=== PATIENT | female | born 1975 | race Caucasian/White ===

== ENCOUNTER 2020-05-04 09:18 | Emergency (ER) | payer OTHER ==
--- OUTSIDE RECORDS SUMMARY | 2020-05-04 10:15 | XMS REPORT | Clinical Summary ---
:1975 Author Organization [facility] Address [address] [place] [address] Care Team Providers Name Role Phone Kwesi Oh Primary Care Provider Aria eDlvalle Consulting Physician Allergies Active Allergy Reactions Severity Noted Date Comments Diphenhydramine-Zinc Acetate Rash Low 03/13/2016 Fluticasone Rash Low 03/13/2016 Medications Medication Sig Dispensed Refills Start Date End Date Status levothyroxine Take 200 mcg by 0 Active (SYNTHROID, LEVOTHROID) mouth Every morning 200 MCG tablet on an empty stomach. calcium carbonate Take 600 mg by 0 Active (OS-MARTÍN) 600 mg (1,500 mouth 3 (three) mg) Tab times daily with meals. insulin regular Inject 0 Acti ve (HUMULIN R,NOVOLIN R) subcutaneously 100 unit/mL daily 90 units 2 x injectionIndications: day. 75 units, 25 units, 75 units naproxen-esomeprazole Take by mouth 2 0 Active 500-20 mg TbID (two) times daily. magnesium oxide Take 400 mg by 0 Active (MAG-OX) 400 mg tablet mouth daily. montelukast (SINGULAIR) Take 10 mg by mouth 0 Active 10 mg tablet nightly. modafinil (PROVIGIL) Take 200 mg by 0 Active 200 MG tablet mouth daily . methylphenidate Take 10 mg by mouth 0 Active (RITALIN) 10 MG tablet 2 (two) times daily. atorvastatin (LIPITOR) Take 20 mg by mouth 0 11/19/ 016 Active 20 MG tablet daily . folic acid (FOLVITE) 1 Take 1 mg by mouth 0 12/02/20 16 Active MG tablet daily . SIMPONI 50 mg/0.5 mL once every 2 weeks 0 12/12/2016 Active PnIj . fenofibrate micronized Take 200 mg by 0 11/05/2016 Active (LOFIBRA) 200 MG mouth every morning capsule before breakfast . hydroxychloroquine 0 11/26/2016 Active (PLAQUENIL) 200 mg tablet LANTUS 100 unit/mL 0 09/18/2016 Active injection methotrexate 2.5 MG 0 11/29/2016 Active tablet pantoprazole (PROTONIX) Take 40 mg by mouth 0 2016 Active 40 MG tablet daily . sulfaSALAzine Take 3,000 mg by 0 2016 Active (AZULFIDINE) 500 mg mouth daily . tablet metFORMIN Take 500 mg by 0 12/20/2016 Acti ve (GLUCOPHAGE-XR) 500 MG mouth 3 (three) 24 hr tablet times daily TAKE ONE TABLET BY MOUTH THREE TIMES A DAY. GYNAZOLE-1 2 % Crea 0 12/17/2016 Active rizatriptan (MAXALT) 10 Take 1 tablet by 0 5 Active MG tablet mouth as needed . aspirin 81 MG chewable Take 81 mg by mouth 0 Active tablet daily. azaTHIOprine (IMURAN) Take 25 mg by mouth 0 Active 50 mg tablet every other day . DULAGLUTIDE (TRULICITY Inject 0 Active SUBQ) subcutaneously once a week . omega-3s/dha/epa/fish Take by mouth 2 0 Active oil (OMEGA 3 ORAL) (two) times daily. ascorbic acid, vitamin Take 1,000 mg by 0 Active C, (VITAMIN C) 1000 MG mouth daily. tablet leflunomide (ARAVA) 10 Take 10 mg by mouth 0 Active MG tablet twice a week. meloxicam (MOBIC) 15 MG Take 15 mg by mouth 0 Active tablet daily. mirabegron (MYRBETRIQ) Take 50 mg by mouth 0 Active 50 mg Tb24 ER tablet daily. dulaglutide (TRULICITY) Inject 1.5 mg 0 02/24/2019 Active 1.5 mg/0.5 mL PnIj subcutaneously once a week . atorvastatin (LIPITOR) TAKE ONE TABLET BY 0 04/16/20 19 Active 40 MG tablet MOUTH AT BEDTIME insulin regular hum INJECT 90 UNITS 0 02/24/2019 Active U-500 conc (HUMULIN R twice daily U-500, CONC, KWIKPEN) 500 unit/mL (3 mL) InPn lisinopril Take 30 mg by 0 02/24/2019 Acti ve (PRINIVIL,ZESTRIL) 30 mouth. MG tablet levocetirizine (XYZAL) Take 5 mg by mouth. 0 Active 5 MG tablet omega-3 acid ethyl Take 2 g by mouth. 0 02/25/2019 Active esters (LOVAZA) 1 gram capsule OTEZLA 30 mg Tab 0 11/23/2019 Ac tive nateglinide (STARLIX) Take 120 mg by 0 09/01/2019 Active 120 MG tablet mouth. Active Problems Problem Noted Date Psoriatic arthritis 06/24/2019 Abnormal liver enzymes 03/14/2016 Last Assessment & Plan: Her transaminases have been abnormal sin ce at least 2010. The elevation is likely secondary to MCCURDY +/- methotrexate. Lab work evaluating for viral, autoimmune, genetic and metabolic causes of live dis ease was ordered by Dr. Reyes and was unremarkable. Liver biopsy is consisten t with MCCURDY and stage 2 fibrosis. Obesity 03/14/2016 Last Assessment & Plan: Body mass index is 35.32 kg/(m^2). Obesi ty is a contributing factor for MCCURDY. We discussed the importance of weight loss with a low carbohydrate, high protein diet. Immunity status testing 03/14/2016 Last Assessment & Plan: Will check immunity to hepatitis A and h epatitis B, vaccine recommendations will follow. Type 2 diabetes mellitus not at goal 03/14/2016 Hyperlipidemia 03/14/2016 Last Assessment & Plan: Her recent blood work shows triglyceride s > 200 despite taking cholesterol lowering agents. We recommend aggressive managem ent of her hyperlipidemie to reduce her risk for progression of liver disease. Metabolic syndrome 03/14/2016 Last Assessment & Plan: She has metabolic syndrome by criteria w hich is known risk factor for MCCURDY. She was advised to control her diet, and lose we ight as part of her diabetes and hyperlipidemia management. This may als o prove to be helpful with her hyperlipidemia. Counseling done and edu cational material was provided. MCCURDY (nonalcoholic steatohepatitis) 03/14/2016 Last Assessment & Plan: She has several risk factors for MCCURDY in cluding obesity, diabetes, hyperlipidemia and obesity. Liver biopsy was consistent wi th MCCURDY (marked steatosis, ballooning degeneneration, and lobular inflammation ). We discussed the importance of excellent control of her cholesterol and diabetes and weight loss. She has significant fibrosis (stage 2/4) at the age of 40 an d we discussed the urgency of decreasing her risk factors for MCCURDY to help prevent pr ogression of fibrosis. 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 Liver biopsy shows significant steatosis. Both methotrexate hepatotoxi city and fatty liver disease can present as steatosis on liver biopsy. She has keisha ral risk factors for non-alcoholic fatty liver disease but we cannot rule out hugo e component of methotrexate toxicity. Cellulitis 03/14/2016 Last Assessment & Plan: She has a 5 cm area of erythema, rubor, and mild edema on the abdominal wall of her LLQ - site of a previous insulin pump. She has an appointment schedued wit her surgeon today for follow-up. Resolved Problems Problem Noted Date Resolved Date Psoriasis 03/14/2016 06/24/2019 Last Assessment & Plan: She has a history of psoriasis and psori atic arthritis that was fairly well controlled previously with methotrexate. I do not recommend restarting methotrexate. Her liver biopsy shows significant fibr osis (likely a combination of fatty liver disease +/- methotrexate). 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 If all other agents fail, I would prefer she minimize her contributing factors for NA SH (lose weight, better control of DM) before we try methotrexate again. Encounters Date Type Specialty Care Team Description 12/09/2019 Abstract Hepatology Vianney White MA 12/02/2019 Office Visit Hepatology Juany Garay NASH ( nonalcoholic steatohepatitis) (Primary Dx); Type 2 diabetes mellitus not at goal (HC C); Cinthya Matt Psoriat ic arthritis ; PA Class 1 obesity with body mass index (BMI) of 33.0 to 33.9 in adult, unspecified obesity type, unspecified whether serious comorbidity present; Methotrexate to xicity, accidental or unintentional, subsequent encounter; Metabolic syndr ome; Immunity status testing; Hyperlipidemia, unspecified hyperlipidemia type; Abnormal liver enzymes 06/21/2019 Office Visit HepatJuany Edge NASH ( nonalcoholic steatohepatitis) (Primary Dx); Immunity status testing; Mmeo Arroyo, Type 2 diabetes mellitus not at goal (HCC); 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; Psoriatic arthr itis ; Class 1 obesity with body mass index (BMI) of 33.0 to 33.9 in adult, unspecified obesity type, unspecified whether serious comorbidity present; Methotrexate to xicity, accidental or unintentional, subsequent encounter; Metabolic syndr ome; Hyperlipidemia, unspecified hyperlipidemia type; Abnormal liver enzymes 06/10/2019 Abstract Hepatology Evonne Casey after 05/04/2019 Family History Medical History Relation Name Comments Heart disease Father Diabetes Sister Relation Name Status Comments Father Alive Sister Alive Social History Tobacco Use Types Packs/Day Years Used Date Never Smoker Smokeless Tobacco: Never Used Alcohol Use Drinks/Week oz/Week Comments No Sex Assigned at Date Recorded Not on file Job Start Date Occupation Industry Not on file Not on file Not on file Travel History Travel Start Travel End No recent travel history available. Last Filed Vital Signs Vital Sign Reading Time Taken Blood Pressure 130/83 12/02/2019 1:20 PM INTERNATIONAL ACCOUNT MANAGER Pulse 108 12/02/2019 1:20 PM INTERNATIONAL ACCOUNT MANAGER Temperature 37.1 C (98.8 F) 12/02/2019 1:20 PM INTERNATIONAL ACCOUNT MANAGER Respiratory Rate 18 12/02/2019 1:20 PM INTERNATIONAL ACCOUNT MANAGER Oxygen Saturation 95% 12/02/2019 1:20 PM INTERNATIONAL ACCOUNT MANAGER Inhaled Oxygen Concentration - - Weight 94.5 kg (208 lb 6.4 oz) 12/02/2019 1:20 PM INTERNATIONAL ACCOUNT MANAGER Height 170.2 cm (5' 7") 12/02/2019 1:20 PM INTERNATIONAL ACCOUNT MANAGER Body Mass Index 32.64 12/02/2019 1:20 PM INTERNATIONAL ACCOUNT MANAGER Plan of Treatment Date Type Specialty Care Team Description 06/01/2020 Office Visit Hepatology Juany Garay MD [address] [facility] [address] [place], [place] [address] [phone] Health Maintenance Due Date Last Done Comments HEMOGLOBIN A1C 03/14/2016 PNEUMOCOCCAL VACCINE 2-64 YEARS AT RISK (2 of 3 - 12/22/2018 10/27/2018 PPSV23) INFLUENZA VACCINE (#1) 2019 10/24/2015 Procedures Procedure Name Priority Date/Time Associated Comments Diagnosis CBC W/PLT COUNT & Routine 12/02/2019 2:06 MCCURDY (nonalcoholic Results for this AUTO DIFFERENTIAL PM INTERNATIONAL ACCOUNT MANAGER steatohepatitis) proced ure are in the results section. CBC W/PLT COUNT & Routine 12/02/2019 2:06 MCCURDY (nonalcoholic Results for this AUTO DIFFERENTIAL PM INTERNATIONAL ACCOUNT MANAGER steatohepatitis) proced ure are in the results section. HEPATIC FUNCTION Routine 12/02/2019 2:06 MCCURDY (nonalcoholic R esults for this PANEL PM INTERNATIONAL ACCOUNT MANAGER steatohepatitis) procedure a re in the results section. BASIC METABOLIC PANEL Routine 12/02/2019 2:06 MCCURDY (nonalcoho lic Results for this (7) PM INTERNATIONAL ACCOUNT MANAGER steatohepatitis) procedure a re in the results section. CBC W/PLT COUNT & Routine 06/21/2019 11:19 MCCURDY (nonalcoholic Results for this AUTO DIFFERENTIAL AM CDT steatohepatitis) proced ure are in the results section. HEPATITIS B SURFACE Routine 06/21/2019 11:19 Immunity status R esults for this ANTIBODY AM CDT testing procedure are i n the results section. HEPATITIS A ANTIBODY, Routine 06/21/2019 11:19 Immunity status Results for this IGG AM CDT testing procedure are i n the results section. HEPATIC FUNCTION Routine 06/21/2019 11:19 MCCURDY (nonalcoholic R esults for this PANEL AM CDT steatohepatitis) procedure a re in the results section. BASIC METABOLIC PANEL Routine 06/21/2019 11:19 MCCURDY (nonalcoho lic Results for this (7) AM CDT steatohepatitis) procedure a re in the results section. CBC W/PLT COUNT & Routine 06/21/2019 11:19 MCCURDY (nonalcoholic Results for this AUTO DIFFERENTIAL AM CDT steatohepatitis) proced ure are in the results section. after 05/04/2019 Results CBC with platelet count + automated diff (12/02/2019 2:06 PM INTERNATIONAL ACCOUNT MANAGER)Only the most recent of2 resultswithin the time period is included. WBC 9.2 3.5 - 10.5 K/L [facility] RBC 5.26 (H) 3.93 - 5.22 M/L [facility] Hemoglobin 12.6 11.2 - 15.7 GM/DL [facility] Hematocrit 40.6 34.1 - 44.9 % [facility] MCV 77.2 (L) 79.4 - 94.[address] [facility] ALTH [facility] MCH 24.0 (L) 25.6 - 32.2 pg [facility] ALTH [facility] MCHC 31.0 (L) 32.2 - 35.5 GM/DL [facility] RDW 14.7 (H) 11.7 - 14.4 % [facility] HE ALTH [facility] Platelets 415 150 - 450 K/CU MM [facility] MPV 9.6 9.4 - 12.3 fL [facility] ALTH [facility] nRBC 0 0 - 0 /100 WBC [facility] ALTH [facility] % Neutros 59 % [facility] % Lymphs 27 % [facility] % Monos 8 % [facility] AL[facility] % Eos 5 % [facility] ALTH [facility] % Baso 2 % [facility] ALTH [facility] # Neutros 5.44 1.56 - 6.13 K/L [facility] # Lymphs 2.45 1.18 - 3.74 K/L [facility] # Monos 0.70 (H) 0.24 - 0.36 K/L [facility] # Eos 0.45 (H) 0.04 - 0.36 K/L [facility] # Baso 0.15 (H) 0.01 - 0.08 K/L [facility] Immature Granulocytes-Relative 1 0 - 1 % C HI [facility] Specimen Blood Performing Organization Address City/State/Zipcode Phone Number [facility] [address] [place] [address] CENTER Hepatic function panel (12/02/2019 2:06 PM INTERNATIONAL ACCOUNT MANAGER)Only the most recent of2 results within the time period is included. Protein, Total 7.0 6.0 - 8.3 gm/dL [facility] Albumin 4.4 3.5 - 5.0 g/dL [facility] HE [facility] Total Bilirubin 0.3 0.2 - 1.2 mg/dL [facility] Bilirubin, Direct 0.2 0.1 - 0.5 mg/dL [facility] Alkaline Phosphatase 65 40 - 150 U/L [facility] AST 55 (H) 5 - 34 U/L [facility] ALT 41 6 - 55 U/L [facility] Specimen Blood Performing Organization Address City/State/Zipcode Phone Number [address] [address] CENTER Basic Metabolic Panel (12/02/2019 2:06 PM INTERNATIONAL ACCOUNT MANAGER)Only the most recent of2 results within the time period is included. Sodium 138 136 - 145 meq/L [facility] Potassium 4.0 3.5 - 5.1 meq/L [facility] Chloride 103 98 - 107 meq/L [facility] CO2 23 22 - 29 meq/L [facility] BUN 6 (L) 7 - 21 mg/dL [facility] Creatinine 0.74 0.57 - 1.25 mg/dL [facility] Glucose 271 (H) 70 - 105 mg/dL [facility] Calcium 9.2 8.4 - 10.2 mg/dL [facility] EGFR 85Comment: ESTIMATED GFR IS mL/min/1.73 sq m [facility] NOT ACCURATE CREATININE MD DICAL CENTER CLEARANCE IN PREDICTING GLOMERULAR FILTRATION RATE. ESTIMATED GFR IS NOT APPLICABLE FOR DIALYSIS PATIENTS. Specimen Blood Performing Organization Address City/State/Zipcode Phone Number [facility] [address] [place] [address] [place] Hepatitis A Antibody, IgG ([facility] Only) (06/21/2019 11:19 AM CDT) Hep A IgG Reactive (A) Nonreactive [facility] Specimen Blood Performing Organization Address City/State/Zipcode Phone Number [facility] [address] [place] [address] [place] Hepatitis B surface antibody (06/21/2019 11:19 AM CDT) Hep B S Ab 22.0 (H) <8.0 mIU/mL [facility] Specimen Blood Performing Organization Address City/[facility]/Zipcode Phone Number [address] [address] [place] after 05/04/2019 Insurance Payer Benefit Plan / Group Subscriber ID Type Phone A ddress [employer] - [employer] CARE [employer] HMO POS QPOS xxxxxxxxxx HMO/POS Advance Directives For more information, please contact:[address] [phone] Code Status Date Activated Date Inactivated Comments Full Code 03/13/2016 10:43 AM 03/13/2016 7:12 PM This code status was determined by: Patient
--- OUTSIDE RECORDS SUMMARY | 2020-05-04 10:16 | XMS REPORT | Continuity of Care Document ---
:1975 Author Organization [facility] t Address [address] [place] [address] Care Team Providers Name Role Phone Lorne SANCHEZ Attending Clinician CARMEN FERNANDES Attending Clinician Unavailable Problems This patient has no known problems. Allergies, Adverse Reactions, Alerts This patient has no known allergies or adverse reactions. Medications This patient has no known medications. Procedures This patient has no known procedures. Encounters Start End Encounter Admission Attending Care Care Encounter Source Date/Time Date/Time Type Type Clinicians Facility Department ID 2020-04-13 2020-04-13 Refill Pradhan, [facility] [id number] 00:00:00 00:00:00 Adeel Whiteland [id number] [place] [id number] Professio [phone] [address] 2020-04-12 2020-04-12 Refill Pradhan, [facility] [id number] 00:00:00 00:00:00 Adeel Whiteland [id number] [place] [id number] [facility]io [phone] [address] 2020-04-10 2020-04-10 Refill Pradhan, [facility] [id number] 00:00:00 00:00:00 Adeel Whiteland [id number] [place] [id number] [facility]io [phone] [address] 2020-01-11 2020-01-11 Office Pradhan, [facility] [id number] 25 15:44:37 17:02:16 Visit Adeel Jim [id number] [place] [id number] María [phone] [facility] [address] Results Test Description Test Time Test Comments Results Result Comments Source HEPATIC FUNCTION PANEL 2019-12-02 16:47:00 Test Item Value Reference Range Interpretation Comme nts TOTAL PROTEIN (BEAKER) (test code = 770) 7.0 gm/dL 6.0-8.3 ALBUMIN (BEAKER) (test code = 1145) 4.4 g/dL 3.5-5.0 BILIRUBIN TOTAL (BEAKER) (test code = 377) 0.3 mg/dL 0.2-1.2 BILIRUBIN DIRECT (BEAKER) (test code = 706) 0.2 mg/dL 0.1-0.5 ALKALINE PHOSPHATASE (BEAKER) (test code = 346) 65 U/L 40-150 AST (SGOT) (BEAKER) (test code = 353) 55 U/L 5-34 H ALT (SGPT) (BEAKER) (test code = 347) 41 U/L 6-55 BASIC METABOLIC [id number] 16:47:00 Test Item Value Reference Range Interpretation Comments SODIUM (BEAKER) 138 meq/L 136-145 (test code = 381) POTASSIUM (BEAKER) 4.0 meq/L 3.5-5.1 (test code = 379) CHLORIDE (BEAKER) 103 meq/L 98-107 (test code = 382) CO2 (BEAKER) (test 23 meq/L 22-29 code = 355) BLOOD UREA NITROGEN 6 mg/dL 7-21 L (BEAKER) (test code = 354) CREATININE (BEAKER) 0.74 mg/dL 0.57-1.25 (test code = 358) GLUCOSE RANDOM 271 mg/dL 70-105 H (BEAKER) (test code = 652) CALCIUM (BEAKER) 9.2 mg/dL 8.4-10.2 (test code = 697) EGFR (BEAKER) (test 85 mL/min/1.73 ESTIMA JOSIAH GFR IS code = 1092) sq m NOT ACCURATE CREATININE CLEARANCE IN PREDICTING GLOMERULAR FILTRATION RATE . ESTIMATED GFR I S NOT APPLICABLE FOR DIALYSIS PATIEN TS. CBC W/PLT COUNT & AUTO [id number] 16:36:00 Test Item Value Reference Range Interpretation Comments WHITE BLOOD CELL COUNT (BEAKER) 9.2 K/ L 3.5-10.5 (test code = 775) RED BLOOD CELL COUNT (BEAKER) 5.26 M/ L 3.93-5.22 H (test code = 761) HEMOGLOBIN (BEAKER) (test code = 12.6 GM/DL 11.2-15.7 410) HEMATOCRIT (BEAKER) (test code = 40.6 % 34.1-44.9 411) MEAN CORPUSCULAR VOLUME (BEAKER) 77.2 fL 79.4-94.8 L (test code = 753) MEAN CORPUSCULAR HEMOGLOBIN 24.0 pg 25.6-32.2 L (BEAKER) (test code = 751) MEAN CORPUSCULAR HEMOGLOBIN CONC 31.0 GM/DL 32.2-35.5 L (BEAKER) (test code = 752) RED CELL DISTRIBUTION WIDTH 14.7 % 11.7-14.4 H (BEAKER) (test code = 412) PLATELET COUNT (BEAKER) (test 415 K/CU MM 150-450 code = 756) MEAN PLATELET VOLUME (BEAKER) 9.6 fL 9.4-12.3 (test code = 754) NUCLEATED RED BLOOD CELLS 0 /100 WBC 0-0 (BEAKER) (test code = 413) NEUTROPHILS RELATIVE PERCENT 59 % (BEAKER) (test code = 429) LYMPHOCYTES RELATIVE PERCENT 27 % (BEAKER) (test code = 430) MONOCYTES RELATIVE PERCENT 8 % (BEAKER) (test code = 431) EOSINOPHILS RELATIVE PERCENT 5 % (BEAKER) (test code = 432) BASOPHILS RELATIVE PERCENT 2 % (BEAKER) (test code = 437) NEUTROPHILS ABSOLUTE COUNT 5.44 K/ L 1.56-6.13 (BEAKER) (test code = 670) LYMPHOCYTES ABSOLUTE COUNT 2.45 K/ L 1.18-3.74 (BEAKER) (test code = 414) MONOCYTES ABSOLUTE COUNT (BEAKER) 0.70 K/ L 0.24-0.36 H (test code = 415) EOSINOPHILS ABSOLUTE COUNT 0.45 K/ L 0.04-0.36 H (BEAKER) (test code = 416) BASOPHILS ABSOLUTE COUNT (BEAKER) 0.15 K/ L 0.01-0.08 H (test code = 417) IMMATURE GRANULOCYTES-RELATIVE 1 % 0-1 PERCENT (BEAKER) (test code = 2801) HEPATITIS A ANTIBODY, [id number] 13:32:00 Test Item Value Reference Range Interpretation Comments HEPATITIS A IGG ANTIBODY (BEAKER) Reactive Nonreactive A (test code = 2797) HEPATITIS B SURFACE [id number] 13:30:00 Test Item Value Reference Range Interpretation Comments HEPATITIS B SURFACE ANTIBODY 22.0 mIU/mL <8.0 H (BEAKER) (test code = 647) HEPATIC FUNCTION [id number] 13:14:00 Test Item Value Reference Range Interpretation Comments TOTAL PROTEIN (BEAKER) (test code = 6.7 gm/dL 6.0-8.3 770) ALBUMIN (BEAKER) (test code = 1145) 4.2 g/dL 3.5-5.0 BILIRUBIN TOTAL (BEAKER) (test code 0.3 mg/dL 0.2-1.2 = 377) BILIRUBIN DIRECT (BEAKER) (test 0.1 mg/dL 0.1-0.5 code = 706) ALKALINE PHOSPHATASE (BEAKER) (test 56 U/L 40-150 code = 346) AST (SGOT) (BEAKER) (test code = 58 U/L 5-34 H 353) ALT (SGPT) (BEAKER) (test code = 49 U/L 6-55 347) BASIC METABOLIC [id number] 13:14:00 Test Item Value Reference Range Interpretation Comments SODIUM (BEAKER) 140 meq/L 136-145 (test code = 381) POTASSIUM (BEAKER) 3.9 meq/L 3.5-5.1 (test code = 379) CHLORIDE (BEAKER) 107 meq/L 98-107 (test code = 382) CO2 (BEAKER) (test 22 meq/L 22-29 code = 355) BLOOD UREA NITROGEN 8 mg/dL 7-21 (BEAKER) (test code = 354) CREATININE (BEAKER) 0.75 mg/dL 0.57-1.25 (test code = 358) GLUCOSE RANDOM 184 mg/dL 70-105 H (BEAKER) (test code = 652) CALCIUM (BEAKER) 9.0 mg/dL 8.4-10.2 (test code = 697) EGFR (BEAKER) (test 84 mL/min/1.73 ESTIMA JOSIAH GFR IS code = 1092) sq m NOT ACCURATE CREATININE CLEARANCE IN PREDICTING GLOMERULAR FILTRATION RATE . ESTIMATED GFR I S NOT APPLICABLE FOR DIALYSIS PATIEN TS. CBC W/PLT COUNT & AUTO [id number] 12:58:00 Test Item Value Reference Range Interpretation Comments WHITE BLOOD CELL COUNT (BEAKER) 5.3 K/ L 3.5-10.5 (test code = 775) RED BLOOD CELL COUNT (BEAKER) 4.84 M/ L 3.93-5.22 (test code = 761) HEMOGLOBIN (BEAKER) (test code = 12.6 GM/DL 11.2-15.7 410) HEMATOCRIT (BEAKER) (test code = 40.5 % 34.1-44.9 411) MEAN CORPUSCULAR VOLUME (BEAKER) 83.7 fL 79.4-94.8 (test code = 753) MEAN CORPUSCULAR HEMOGLOBIN 26.0 pg 25.6-32.2 (BEAKER) (test code = 751) MEAN CORPUSCULAR HEMOGLOBIN CONC 31.1 GM/DL 32.2-35.5 L (BEAKER) (test code = 752) RED CELL DISTRIBUTION WIDTH 14.1 % 11.7-14.4 (BEAKER) (test code = 412) PLATELET COUNT (BEAKER) (test 372 K/CU MM 150-450 code = 756) MEAN PLATELET VOLUME (BEAKER) 9.4 fL 9.4-12.3 (test code = 754) NUCLEATED RED BLOOD CELLS 0 /100 WBC 0-0 (BEAKER) (test code = 413) NEUTROPHILS RELATIVE PERCENT 51 % (BEAKER) (test code = 429) LYMPHOCYTES RELATIVE PERCENT 32 % (BEAKER) (test code = 430) MONOCYTES RELATIVE PERCENT 10 % (BEAKER) (test code = 431) EOSINOPHILS RELATIVE PERCENT 4 % (BEAKER) (test code = 432) BASOPHILS RELATIVE PERCENT 2 % (BEAKER) (test code = 437) NEUTROPHILS ABSOLUTE COUNT 2.71 K/ L 1.56-6.13 (BEAKER) (test code = 670) LYMPHOCYTES ABSOLUTE COUNT 1.72 K/ L 1.18-3.74 (BEAKER) (test code = 414) MONOCYTES ABSOLUTE COUNT (BEAKER) 0.55 K/ L 0.24-0.36 H (test code = 415) EOSINOPHILS ABSOLUTE COUNT 0.23 K/ L 0.04-0.36 (BEAKER) (test code = 416) BASOPHILS ABSOLUTE COUNT (BEAKER) 0.09 K/ L 0.01-0.08 H (test code = 417) IMMATURE GRANULOCYTES-RELATIVE 0 % 0-1 PERCENT (BEAKER) (test code = 2801) HEPATIC FUNCTION [id number] 14:47:00 Test Item Value Reference Range Interpretation Comments TOTAL PROTEIN (BEAKER) (test code = 7.1 gm/dL 6.0-8.3 770) ALBUMIN (BEAKER) (test code = 1145) 4.4 g/dL 3.5-5.0 BILIRUBIN TOTAL (BEAKER) (test code 0.3 mg/dL 0.2-1.2 = 377) BILIRUBIN DIRECT (BEAKER) (test 0.2 mg/dL 0.1-0.5 code = 706) ALKALINE PHOSPHATASE (BEAKER) (test 76 U/L 40-150 code = 346) AST (SGOT) (BEAKER) (test code = 32 U/L 5-34 353) ALT (SGPT) (BEAKER) (test code = 27 U/L 6-55 347) BASIC METABOLIC [id number] 14:47:00 Test Item Value Reference Range Interpretation Comments SODIUM (BEAKER) 138 meq/L 136-145 (test code = 381) POTASSIUM (BEAKER) 3.8 meq/L 3.5-5.1 (test code = 379) CHLORIDE (BEAKER) 104 meq/L 98-107 (test code = 382) CO2 (BEAKER) (test 24 meq/L 22-29 code = 355) BLOOD UREA NITROGEN 13 mg/dL 7-21 (BEAKER) (test code = 354) CREATININE (BEAKER) 0.78 mg/dL 0.57-1.25 (test code = 358) GLUCOSE RANDOM 187 mg/dL 70-105 H (BEAKER) (test code = 652) CALCIUM (BEAKER) 8.9 mg/dL 8.4-10.2 (test code = 697) EGFR (BEAKER) (test 80 mL/min/1.73 ESTIMA JOSIAH GFR IS code = 1092) sq m NOT ACCURATE CREATININE CLEARANCE IN PREDICTING GLOMERULAR FILTRATION RATE . ESTIMATED GFR I S NOT APPLICABLE FOR DIALYSIS PATIEN TS. C-REACTIVE [id number] 14:47:00 Test Item Value Reference Range Interpretation Comments C-REACTIVE PROTEIN (BEAKER) (test 0.25 mg/dL 0.00-0.50 code = 676) CBC W/PLT COUNT & AUTO [id number] 14:23:00 Test Item Value Reference Range Interpretation Comments WHITE BLOOD CELL COUNT (BEAKER) 8.3 K/ L 3.5-10.5 (test code = 775) RED BLOOD CELL COUNT (BEAKER) 5.17 M/ L 3.93-5.22 (test code = 761) HEMOGLOBIN (BEAKER) (test code = 13.5 GM/DL 11.2-15.7 410) HEMATOCRIT (BEAKER) (test code = 42.9 % 34.1-44.9 411) MEAN CORPUSCULAR VOLUME (BEAKER) 83.0 fL 79.4-94.8 (test code = 753) MEAN CORPUSCULAR HEMOGLOBIN 26.1 pg 25.6-32.2 (BEAKER) (test code = 751) MEAN CORPUSCULAR HEMOGLOBIN CONC 31.5 GM/DL 32.2-35.5 L (BEAKER) (test code = 752) RED CELL DISTRIBUTION WIDTH 13.6 % 11.7-14.4 (BEAKER) (test code = 412) PLATELET COUNT (BEAKER) (test 405 K/CU MM 150-450 code = 756) MEAN PLATELET VOLUME (BEAKER) 9.2 fL 9.4-12.3 L (test code = 754) NUCLEATED RED BLOOD CELLS 0 /100 WBC 0-0 (BEAKER) (test code = 413) NEUTROPHILS RELATIVE PERCENT 50 % (BEAKER) (test code = 429) LYMPHOCYTES RELATIVE PERCENT 32 % (BEAKER) (test code = 430) MONOCYTES RELATIVE PERCENT 9 % (BEAKER) (test code = 431) EOSINOPHILS RELATIVE PERCENT 6 % (BEAKER) (test code = 432) BASOPHILS RELATIVE PERCENT 2 % (BEAKER) (test code = 437) NEUTROPHILS ABSOLUTE COUNT 4.18 K/ L 1.56-6.13 (BEAKER) (test code = 670) LYMPHOCYTES ABSOLUTE COUNT 2.66 K/ L 1.18-3.74 (BEAKER) (test code = 414) MONOCYTES ABSOLUTE COUNT (BEAKER) 0.78 K/ L 0.24-0.36 H (test code = 415) EOSINOPHILS ABSOLUTE COUNT 0.46 K/ L 0.04-0.36 H (BEAKER) (test code = 416) BASOPHILS ABSOLUTE COUNT (BEAKER) 0.17 K/ L 0.01-0.08 H (test code = 417) IMMATURE GRANULOCYTES-RELATIVE 1 % 0-1 PERCENT (BEAKER) (test code = 2801) HEPATIC FUNCTION [id number] 11:43:00 Test Item Value Reference Range Interpretation Comments TOTAL PROTEIN (BEAKER) (test code = 7.1 gm/dL 6.0-8.3 770) ALBUMIN (BEAKER) (test code = 1145) 4.4 g/dL 3.5-5.0 BILIRUBIN TOTAL (BEAKER) (test code 0.3 mg/dL 0.2-1.2 = 377) BILIRUBIN DIRECT (BEAKER) (test 0.1 mg/dL 0.1-0.5 code = 706) ALKALINE PHOSPHATASE (BEAKER) (test 81 U/L 40-150 code = 346) AST (SGOT) (BEAKER) (test code = 38 U/L 5-34 H 353) ALT (SGPT) (BEAKER) (test code = 34 U/L 6-55 347) BASIC METABOLIC [id number] 11:43:00 Test Item Value Reference Range Interpretation Comments SODIUM (BEAKER) 136 meq/L 136-145 (test code = 381) POTASSIUM (BEAKER) 4.2 meq/L 3.5-5.1 (test code = 379) CHLORIDE (BEAKER) 101 meq/L 98-107 (test code = 382) CO2 (BEAKER) (test 23 meq/L 22-29 code = 355) BLOOD UREA NITROGEN 10 mg/dL 7-21 (BEAKER) (test code = 354) CREATININE (BEAKER) 0.84 mg/dL 0.57-1.25 (test code = 358) GLUCOSE RANDOM 277 mg/dL 70-105 H (BEAKER) (test code = 652) CALCIUM (BEAKER) 8.4 mg/dL 8.4-10.2 (test code = 697) EGFR (BEAKER) (test 74 mL/min/1.73 ESTIMA JOSIAH GFR IS code = 1092) sq m NOT ACCURATE CREATININE CLEARANCE IN PREDICTING GLOMERULAR FILTRATION RATE . ESTIMATED GFR I S NOT APPLICABLE FOR DIALYSIS PATIEN TS. CBC W/PLT COUNT & AUTO [id number] 10:40:00 Test Item Value Reference Range Interpretation Comments WHITE BLOOD CELL COUNT (BEAKER) 7.7 K/ L 3.5-10.5 (test code = 775) RED BLOOD CELL COUNT (BEAKER) 5.35 M/ L 3.93-5.22 H (test code = 761) HEMOGLOBIN (BEAKER) (test code = 12.9 GM/DL 11.2-15.7 410) HEMATOCRIT (BEAKER) (test code = 42.2 % 34.1-44.9 411) MEAN CORPUSCULAR VOLUME (BEAKER) 78.9 fL 79.4-94.8 L (test code = 753) MEAN CORPUSCULAR HEMOGLOBIN 24.1 pg 25.6-32.2 L (BEAKER) (test code = 751) MEAN CORPUSCULAR HEMOGLOBIN CONC 30.6 GM/DL 32.2-35.5 L (BEAKER) (test code = 752) RED CELL DISTRIBUTION WIDTH 15.1 % 11.7-14.4 H (BEAKER) (test code = 412) PLATELET COUNT (BEAKER) (test 384 K/CU MM 150-450 code = 756) MEAN PLATELET VOLUME (BEAKER) 9.4 fL 9.4-12.3 (test code = 754) NUCLEATED RED BLOOD CELLS 0 /100 WBC 0-0 (BEAKER) (test code = 413) NEUTROPHILS RELATIVE PERCENT 51 % (BEAKER) (test code = 429) LYMPHOCYTES RELATIVE PERCENT 32 % (BEAKER) (test code = 430) MONOCYTES RELATIVE PERCENT 9 % (BEAKER) (test code = 431) EOSINOPHILS RELATIVE PERCENT 6 % (BEAKER) (test code = 432) BASOPHILS RELATIVE PERCENT 1 % (BEAKER) (test code = 437) NEUTROPHILS ABSOLUTE COUNT 3.91 K/ L 1.56-6.13 (BEAKER) (test code = 670) LYMPHOCYTES ABSOLUTE COUNT 2.42 K/ L 1.18-3.74 (BEAKER) (test code = 414) MONOCYTES ABSOLUTE COUNT (BEAKER) 0.70 K/ L 0.24-0.36 H (test code = 415) EOSINOPHILS ABSOLUTE COUNT 0.48 K/ L 0.04-0.36 H (BEAKER) (test code = 416) BASOPHILS ABSOLUTE COUNT (BEAKER) 0.10 K/ L 0.01-0.08 H (test code = 417) IMMATURE GRANULOCYTES-RELATIVE 1 % 0-1 PERCENT (BEAKER) (test code = 2801) HEPATIC FUNCTION [id number] 16:54:00 Test Item Value Reference Range Interpretation Comments TOTAL PROTEIN (BEAKER) (test code = 6.9 gm/dL 6.0-8.3 770) ALBUMIN (BEAKER) (test code = 1145) 4.1 g/dL 3.5-5.0 BILIRUBIN TOTAL (BEAKER) (test code 0.3 mg/dL 0.2-1.2 = 377) BILIRUBIN DIRECT (BEAKER) (test 0.1 mg/dL 0.1-0.5 code = 706) ALKALINE PHOSPHATASE (BEAKER) (test 94 U/L 40-150 code = 346) AST (SGOT) (BEAKER) (test code = 29 U/L 5-34 353) ALT (SGPT) (BEAKER) (test code = 36 U/L 6-55 347) BASIC METABOLIC [id number] 16:54:00 Test Item Value Reference Range Interpretation Comments SODIUM (BEAKER) 135 meq/L 136-145 L (test code = 381) POTASSIUM (BEAKER) 4.2 meq/L 3.5-5.1 (test code = 379) CHLORIDE (BEAKER) 99 meq/L 98-107 (test code = 382) CO2 (BEAKER) (test 24 meq/L 22-29 code = 355) BLOOD UREA NITROGEN 9 mg/dL 7-21 (BEAKER) (test code = 354) CREATININE (BEAKER) 0.68 mg/dL 0.57-1.25 (test code = 358) GLUCOSE RANDOM 244 mg/dL 70-105 H (BEAKER) (test code = 652) CALCIUM (BEAKER) 8.3 mg/dL 8.4-10.2 L (test code = 697) EGFR (BEAKER) (test 94 mL/min/1.73 ESTIMA JOSIAH GFR IS code = 1092) sq m NOT ACCURATE CREATININE CLEARANCE IN PREDICTING GLOMERULAR FILTRATION RATE . ESTIMATED GFR I S NOT APPLICABLE FOR DIALYSIS PATIEN TS. CBC W/PLT COUNT & AUTO [id number] 16:27:00 Test Item Value Reference Range Interpretation Comments WHITE BLOOD CELL COUNT (BEAKER) 8.9 K/ L 3.5-10.5 (test code = 775) RED BLOOD CELL COUNT (BEAKER) 5.39 M/ L 3.93-5.22 H (test code = 761) HEMOGLOBIN (BEAKER) (test code = 12.5 GM/DL 11.2-15.7 410) HEMATOCRIT (BEAKER) (test code = 41.4 % 34.1-44.9 411) MEAN CORPUSCULAR VOLUME (BEAKER) 76.8 fL 79.4-94.8 L (test code = 753) MEAN CORPUSCULAR HEMOGLOBIN 23.2 pg 25.6-32.2 L (BEAKER) (test code = 751) MEAN CORPUSCULAR HEMOGLOBIN CONC 30.2 GM/DL 32.2-35.5 L (BEAKER) (test code = 752) RED CELL DISTRIBUTION WIDTH 15.8 % 11.7-14.4 H (BEAKER) (test code = 412) PLATELET COUNT (BEAKER) (test 407 K/CU MM 150-450 code = 756) MEAN PLATELET VOLUME (BEAKER) 9.0 fL 9.4-12.3 L (test code = 754) NUCLEATED RED BLOOD CELLS 0 /100 WBC 0-0 (BEAKER) (test code = 413) NEUTROPHILS RELATIVE PERCENT 62 % (BEAKER) (test code = 429) LYMPHOCYTES RELATIVE PERCENT 27 % (BEAKER) (test code = 430) MONOCYTES RELATIVE PERCENT 7 % (BEAKER) (test code = 431) EOSINOPHILS RELATIVE PERCENT 2 % (BEAKER) (test code = 432) BASOPHILS RELATIVE PERCENT 1 % (BEAKER) (test code = 437) NEUTROPHILS ABSOLUTE COUNT 5.56 K/ L 1.56-6.13 (BEAKER) (test code = 670) LYMPHOCYTES ABSOLUTE COUNT 2.44 K/ L 1.18-3.74 (BEAKER) (test code = 414) MONOCYTES ABSOLUTE COUNT (BEAKER) 0.64 K/ L 0.24-0.36 H (test code = 415) EOSINOPHILS ABSOLUTE COUNT 0.18 K/ L 0.04-0.36 (BEAKER) (test code = 416) BASOPHILS ABSOLUTE COUNT (BEAKER) 0.09 K/ L 0.01-0.08 H (test code = 417) IMMATURE GRANULOCYTES-RELATIVE 0 % 0-1 PERCENT (BEAKER) (test code = 2801) ALPHA FETOPROTEIN (AFP), TUMOR [id number] 16:19:00 Test Item Value Reference Range Interpretation Comments ALPHA-FETOPROTEIN (BEAKER) (test 4.6 ng/mL <10.0 code = 1094) Effective 10/18/2014: Reference Range ChangeNew: <10.0 Previous: 0.0-8.0 BASIC METABOLIC [id number] 15:56:00 Test Item Value Reference Range Interpretation Comments SODIUM (BEAKER) 137 meq/L 136-145 (test code = 381) POTASSIUM (BEAKER) 4.0 meq/L 3.5-5.1 (test code = 379) CHLORIDE (BEAKER) 101 meq/L 98-107 (test code = 382) CO2 (BEAKER) (test 25 meq/L 22-29 code = 355) BLOOD UREA NITROGEN 9 mg/dL 7-21 (BEAKER) (test code = 354) CREATININE (BEAKER) 0.76 mg/dL 0.57-1.25 (test code = 358) GLUCOSE RANDOM 165 mg/dL 70-105 H (BEAKER) (test code = 652) CALCIUM (BEAKER) 9.1 mg/dL 8.4-10.2 (test code = 697) EGFR (BEAKER) (test 83 mL/min/1.73 ESTIMA JOSIAH GFR IS code = 1092) sq m NOT ACCURATE CREATININE CLEARANCE IN PREDICTING GLOMERULAR FILTRATION RATE . ESTIMATED GFR I S NOT APPLICABLE FOR DIALYSIS PATIEN TS. LIPID [id number] 15:56:00 Test Item Value Reference Range Interpretation Comments TRIGLYCERIDES (BEAKER) (test code = 411 mg/dL 540) CHOLESTEROL (BEAKER) (test code = 201 mg/dL 631) HDL CHOLESTEROL (BEAKER) (test code 44 mg/dL = 976) Calculated LDL not valid if triglyceride >400 mg/dLTriglyceride Reference Range: Low Risk <150 Borderline 150-199 High Risk 200-499 Very High Risk >=500Cholesterol Reference Range: Low Risk <200 Borderline 200-239 High Risk >240HDL Cholesterol Reference Range: Low Risk >=60 High Risk <40LDL Cholesterol ReferenceRange: Optimal <100 Near Optimal 100-129 Borderline 130-159 High 160-189 Very High >=190HEPATIC FUNCTION [id number] 15:56:00 Test Item Value Reference Range Interpretation Comments TOTAL PROTEIN (BEAKER) (test code = 7.4 gm/dL 6.0-8.3 770) ALBUMIN (BEAKER) (test code = 1145) 4.4 g/dL 3.5-5.0 BILIRUBIN TOTAL (BEAKER) (test code 0.3 mg/dL 0.2-1.2 = 377) BILIRUBIN DIRECT (BEAKER) (test 0.1 mg/dL 0.1-0.5 code = 706) ALKALINE PHOSPHATASE (BEAKER) (test 78 U/L 40-150 code = 346) AST (SGOT) (BEAKER) (test code = 46 U/L 5-34 H 353) ALT (SGPT) (BEAKER) (test code = 37 U/L 6-55 347) GAMMA GLUTAMYL TRANSFERASE ([id number] 15:56:00 Test Item Value Reference Range Interpretation Comments GAMMA GLUTAMYL TRANSFERASE (BEAKER) 77 U/L 9-64 H (test code = 364) CBC W/PLT COUNT & AUTO [id number] 15:55:00 Test Item Value Reference Range Interpretation Comments WHITE BLOOD CELL COUNT (BEAKER) 7.9 K/ L 4.0-10.0 (test code = 775) RED BLOOD CELL COUNT (BEAKER) 5.18 M/ L 4.00-5.00 H (test code = 761) HEMOGLOBIN (BEAKER) (test code = 13.1 GM/DL 12.0-15.0 410) HEMATOCRIT (BEAKER) (test code = 40.6 % 36.0-45.0 411) MEAN CORPUSCULAR VOLUME (BEAKER) 78.4 fL 82.0-99.0 L (test code = 753) MEAN CORPUSCULAR HEMOGLOBIN 25.2 pg 27.0-33.0 L (BEAKER) (test code = 751) MEAN CORPUSCULAR HEMOGLOBIN CONC 32.1 GM/DL 32.0-36.0 (BEAKER) (test code = 752) RED CELL DISTRIBUTION WIDTH 15.4 % 10.3-14.2 H (BEAKER) (test code = 412) PLATELET COUNT (BEAKER) (test 438 K/CU MM 150-430 H code = 756) MEAN PLATELET VOLUME (BEAKER) 6.7 fL 6.5-10.5 (test code = 754) NUCLEATED RED BLOOD CELLS 0 /100 WBC 0-0 (BEAKER) (test code = 413) NEUTROPHILS RELATIVE PERCENT 53 % (BEAKER) (test code = 429) LYMPHOCYTES RELATIVE PERCENT 32 % (BEAKER) (test code = 430) MONOCYTES RELATIVE PERCENT 10 % (BEAKER) (test code = 431) EOSINOPHILS RELATIVE PERCENT 5 % (BEAKER) (test code = 432) BASOPHILS RELATIVE PERCENT 1 % (BEAKER) (test code = 437) NEUTROPHILS ABSOLUTE COUNT 4.13 K/ L 1.80-8.00 (BEAKER) (test code = 670) LYMPHOCYTES ABSOLUTE COUNT 2.49 K/ L 1.48-4.50 (BEAKER) (test code = 414) MONOCYTES ABSOLUTE COUNT (BEAKER) 0.78 K/ L 0.00-1.30 (test code = 415) EOSINOPHILS ABSOLUTE COUNT 0.38 K/ L 0.00-0.50 (BEAKER) (test code = 416) BASOPHILS ABSOLUTE COUNT (BEAKER) 0.10 K/ L 0.00-0.20 (test code = 417) 0.00PROTHROMBIN [id number] 15:42:00 Test Item Value Reference Range Interpretation Comments PROTIME (BEAKER) (test code = 13.1 seconds 11.7-14.7 759) INR (BEAKER) (test code = 370) 1.0 <=5.9 RECOMMENDED COUMADIN/WARFARIN INR THERAPY RANGESSTANDARD DOSE: 2.0 - 3.0 Includes: PROPHYLAXIS forvenous thrombosis, systemic embolization; TREATMENT for venous thrombosis and/or pulmonary embolus.HIGH RISK: Target INR is 2.5-3.5 for patients with mechanical heart valves.
--- OUTSIDE RECORDS SUMMARY | 2020-05-04 10:17 | XMS REPORT | Summary of Care ---
:[address] [facility] Address [address] [place] [id number] Care Team Providers Name Role Phone Francis Orosco Primary Care Provider Reason for Visit Reason Comments Follow-up Diabetes Mellitus II Encounter Details Date Type Department Care Team Description 01/11/2020 Office Visit [facility] Adeel Pradhan MD Uncontrolled type 2 diabetes mellitus wi th complication (Primary Dx); Endocrinology- [address] [facility] hypertension, benign; [facility] Dyslipidemia; Professional Office [place], [place] Posts urgical hypothyroidism; Building [facility] Thyroid cancer [address] [place] [address] [address] [place] [address] Allergies Active Allergy Reactions Severity Noted Date Comments Diphenhydramine Hcl Rash Low 09/04/2010 Fluticasone Rash Low 09/04/2010 documented as of this encounter (statuses as of 02/09/2020) Medications Medication Sig Dispensed Refills Start End Date Status Date Golimumab (SIMPONI) 50 0 Active mg/0.5 mL injection 7 calcium carbonate 600 Take 3 0 Active mg calcium (1,500 mg) tablets by tablet mouth. magnesium oxide 400 mg Take 1 0 Active capsule capsule by 5 mouth. Cholecalciferol, Take 1 0 Act montrell Vitamin D3, 1,000 unit capsule by 5 capsule mouth. levocetirizine 5 mg Take 5 mg by 0 Active tablet mouth. venlafaxine 75 mg Take 1 0 Ac tive tablet tablet by 5 mouth. aspirin 81 mg EC tablet Take 1 0 Active tablet by 7 mouth. butalbital-acetaminophe Take 1 0 Active n 50-300 mg Tab tablet by 5 mouth. rizatriptan 10 mg Take 1 0 Ac tive tablet tablet by 5 mouth. Naproxen-Esomeprazole Take by 0 Active Mag 500-20 mg per mouth. tablet modafinil 200 mg tablet Take 200 mg 0 Active by mouth. montelukast 10 mg Take 1 0 Ac tive tablet tablet by 0 mouth. Folic Acid 20 mg Cap Take 20 mg 0 Active by mouth 2 (two) times daily. pantoprazole 20 mg EC Take 40 mg 0 Active tablet by mouth daily. olopatadine (PAZEO) 0.7 Place in 0 Active % Drop each eye. BD ULTRAFINE III MINI USE ONE - 200 Each 0 Active PEN 31 gauge x 3/16" TWICE A DAY 8 NdleIndications: Type 2 diabetes mellitus without complication, with long-term current use of insulin fenofibrate micronized Take 1 90 capsule 1 Active 200 mg capsule by 9 capsuleIndications: mouth daily Mixed hyperlipidemia with breakfast. flash glucose scanning 1 Each 1 Each 0 Active reader (FREESTYLE GURJIT daily. 9 14 DAY READER) MiscIndications: Diabetes mellitus type 2, uncontrolled, without complications sulfaSALAzine 500 mg Take 500 mg 0 Active tablet by mouth 6 (six) times daily. azaTHIOprine 50 mg Take 25 mg 0 Active tablet by mouth every other day. hydroxychloroquine Take 200 mg 0 Active sulfate by mouth 2 (HYDROXYCHLOROQUINE (two) times ORAL) daily. methylphenidate HCl 10 Take 10 mg 0 Active mg tablet by mouth every morning and at 1200 (noon). levothyroxine 200 mcg Take 1 90 tablet 1 Active tabletIndications: tablet by 9 Postsurgical mouth every hypothyroidism, Thyroid morning. cancer lisinopril 30 mg Take 1 90 tablet 1 Act montrell tabletIndications: tablet by 9 Essential hypertension, mouth daily. benign insulin regular hum inject 54 mL 1 Active U-500 conc (HUMULIN R 80-100 Units 9 U-500, CONC, KWIKPEN) under the 500 unit/mL (3 mL) skin 3 InPnIndications: (three) Uncontrolled type 2 times daily diabetes mellitus with before complication meals. Upto 300 units per day metformin ER 500 mg 24 Take 1 270 tablet 3 Active hr tabletIndications: tablet by 9 Uncontrolled type 2 mouth 3 diabetes mellitus with (three) complication times daily with meals. atorvastatin 40 mg Take 1 90 tablet 2 A ctive tabletIndications: tablet by 9 Dyslipidemia mouth at bedtime. dulaglutide (TRULICITY) inject 1.5 12 Syringe 2 Active 1.5 mg/0.5 mL mg under the 9 PnIjIndications: skin weekly. Uncontrolled type 2 diabetes mellitus with complication LOVAZA, [id number]-[id number] Take 2 360 capsule 1 Active ethyl esters, 1 gram capsules by 9 capsuleIndications: mouth 2 Dyslipidemia (two) times daily with meals. nateglinide 120 mg Take 1 90 tablet 5 A ctive tabletIndications: tablet by 9 Uncontrolled type 2 mouth 3 diabetes mellitus with (three) complication times daily before meals. FREESTYLE GURJIT 14 DAY 1 Each every 2 Kit 5 Active SENSOR KitIndications: 14 0 Diabetes mellitus type (fourteen) 2, uncontrolled, days. without complications OTEZLA 30 mg tablet 0 Active 0 leflunomide 10 mg Take 10 mg 0 01/11/20 D iscontinued tablet by mouth 2 20 (two) times per week. documented as of this encounter (statuses as of 02/09/2020) Active Problems Problem Noted Date Postsurgical hypothyroidism 10/24/2015 Trigger thumb of both thumbs 08/10/2014 Elevated liver enzymes 05/18/2014 Metabolic syndrome X 05/18/2014 Diabetes mellitus type 2, uncontrolled, without compli cations 11/16/2013 Overview: ICD10 Diagnosis Term Art History Instructor Utility Thyroid cancer 11/16/2013 HLD (hyperlipidemia) 11/16/2013 Essential hypertension, benign 11/16/2013 Vitamin D deficiency 11/16/2013 Overview: ICD10 Diagnosis Term Art History Instructor Utility Plantar fasciitis 11/08/2011 Abnormal liver function test 07/12/2011 Therapeutic drug monitoring 07/12/2011 Skin rash 06/07/2011 Late effect of adverse effect of drug, medical or biol ogical substance 10/17/2010 Cervical radiculopathy 09/04/2010 Psoriatic arthropathy 09/04/2010 documented as of this encounter (statuses as of 02/09/2020) Resolved Problems Problem Noted Date Resolved Date Hypothyroidism 11/16/2013 10/24/2015 Overview: ICD10 Diagnosis Term Art History Instructor Utility documented as of this encounter (statuses as of 02/09/2020) Immunizations Name Administration Dates Next Due Influenza Virus Vaccine Quad IM 3+ YRS 10/24/2015 Pneumococcal 13 Conjugate, PCV13 (Prevnar 10/27/2018 13) Twinrix (hep a/hep b) 04/01/2019, 10/27/2018, 09/23/2018 documented as of this encounter Social History Tobacco Use Types Packs/Day Years Used Date Never Smoker Smokeless Tobacco: Never Used Alcohol Use Drinks/Week oz/Week Comments Yes occasional Sex Assigned at Date Recorded Not on file Job Start Date Occupation Industry Not on file Not on file Not on file Travel History Travel Start Travel End No recent travel history available. documented as of this encounter Last Filed Vital Signs Vital Sign Reading Time Taken Comments Blood Pressure 112/78 01/11/2020 4:32 PM SPECIAL EDUCATION SECRETARY Pulse 90 01/11/2020 4:32 PM SPECIAL EDUCATION SECRETARY Temperature - - Respiratory Rate 16 01/11/2020 4:32 PM SPECIAL EDUCATION SECRETARY Oxygen Saturation - - Inhaled Oxygen Concentration - - Weight 93.9 kg (207 lb) 01/11/2020 4:32 PM SPECIAL EDUCATION SECRETARY Height 170.2 cm (5' 7") 01/11/2020 4:32 PM SPECIAL EDUCATION SECRETARY Body Mass Index 32.42 01/11/2020 4:32 PM SPECIAL EDUCATION SECRETARY documented in this encounter Patient Instructions Patient InstructionsAdeel Pradhan MD - 01/11/2020 4:00 PM CSTContinue metformin Trulicity and nateglinide Change U 500 insulin to 100 units with meal three time a day, if you skip your lunch , take 40-50 units at noon time IAL EDUCATION SECRETARY documented in this encounter Progress Notes Adeel Pradhan MD - 01/11/2020 4:00 PM CST chief complaint: Type 2 diabetes mellitus, Hypothyroidism, dyslipidemia- follow up HPI Patient is a 43 y/o female here for follow up. H/o Type 2 diabetes mellitus, hypertension , hypothyroidism, nephropathy: with microalbuminuria and obesity. Type 2 diabetes mellitus has been poor controlled with A1C >9 most time MUKUND was in 08/2019 with A1C at 9.2 patient was instructed to add Starlix. She is currently taking Diabetes regimen: U-500 in pen 90units TIDAC, Metformin ER 500 mg 3 tab daily, Trulicity 1.5 mg weekly and nateglinide 120mg TIDAC Patient was started on freestyle gurjit in 01/2019 . Patient has brought in the blood sugars to be reviewed today. CGM(-01/11/19) BG scan 4/day sensor AVG 234 % time CGM data captured 78% Glucose stat very high >240 46% high 140-240 45% in Target range 100-140 7% low 70-99 2% very low <70 0% Interpretation Hyperglycemia thru the day The patient is not having problems with hypoglycemia. But few 70-80 in PM Diet: Reports compliance Exercise:limited due to RA Dyslipidemia: Takes Fenofibrate 200 mg and Lipitor 40 mg and Lovaza 2 cap bid Hypothyroidism: Takes LT4 200 mcg daily Thyroid cancer: being managed at [facility] Received records from [facility] PTC T2N*M* S/p right lobectomy followed by completion thyroidectomy. PTC: Pathology 03/2012 Right 2.2 cm, no extrathyroidal extension but positive lymphovascular invasion. Resected margin werepositive RAIA- Not treated 10/2017_ ( [facility] labs) TG and TG AB negative FT4 elevated TSH normal DIABETIC HEALTH MAINTENANCE Last Ophthalmology visit was 07/16/19, no retinopathy per patient. Patient on BECKY/ARB therapy - Yes Patient on ASA therapy - Yes. Patient on Statin/Fibrate therapy - Yes. Patient instructed about daily feet exams, last sensation exam was 09/01/2019 Patient has received Nutrition/Diet/Diabetes Education on 03/2016. Patient's Medications START taking these medications No medications on file CONTINUE taking these medications which have NOT CHANGED ASPIRIN 81 MG EC TABLET Take 1 tablet by mouth. ATORVASTATIN 40 MG TABLET Take 1 tablet by mouth at bedtime. AZATHIOPRINE 50 MG TABLET Take 25 mg by mouth every other day. BD ULTRAFINE III MINI PEN 31 GAUGE X 3/16" NDLE USE ONE - TWICE A DAY BUTALBITAL-ACETAMINOPHEN 50-300 MG TAB Take 1 tablet by mouth. CALCIUM CARBONATE 600 MG CALCIUM (1,500 MG) TABLET Take 3 tablets by mouth. CHOLECALCIFEROL, VITAMIN D3, 1,000 UNIT CAPSULE Take 1 capsule by mouth. DULAGLUTIDE (TRULICITY) 1.5 MG/0.5 ML PNIJ inject 1.5 mg under the skin weekly. FENOFIBRATE MICRONIZED 200 MG CAPSULE Take 1 capsule by mouth daily with breakfast. FLASH GLUCOSE SCANNING READER (FREESTYLE GURJIT 14 DAY READER) MISC 1 Each daily. FOLIC ACID 20 MG CAP Take 20 mg by mouth 2 (two) times daily. FREESTYLE GURJIT 14 DAY SENSOR KIT 1 Each every 14 (fourteen) days. GOLIMUMAB (SIMPONI) 50 MG/0.5 ML INJECTION HYDROXYCHLOROQUINE SULFATE (HYDROXYCHLOROQUINE ORAL) Take 200 mg by mouth 2 (two) times daily. INSULIN REGULAR HUM U-500 CONC (HUMULIN R U-500, CONC, KWIKPEN) 500 UNIT/ML (3 ML) INPN inject 80-100 Units under the skin 3 (three) times daily before meals. Upto 300 units per day LEVOCETIRIZINE 5 MG TABLET Take 5 mg by mouth. LEVOTHYROXINE 200 MCG TABLET Take 1 tablet by mouth every morning. LISINOPRIL 30 MG TABLET Take 1 tablet by mouth daily. LOVAZA, [id number] ETHYL ESTERS, 1 GRAM CAPSULE Take 2 capsules by mouth 2 (two) times daily with meals. MAGNESIUM OXIDE 400 MG CAPSULE Take 1 capsule by mouth. METFORMIN ER 500 MG 24 HR TABLET Take 1 tablet by mouth 3 (three) times daily with meals. METHYLPHENIDATE HCL 10 MG TABLET Take 10 mg by mouth every morning and at 1200 (noon). MODAFINIL 200 MG TABLET Take 200 mg by mouth. MONTELUKAST 10 MG TABLET Take 1 tablet by mouth. NAPROXEN-ESOMEPRAZOLE MAG 500-20 MG PER TABLET Take by mouth. NATEGLINIDE 120 MG TABLET Take 1 tablet by mouth 3 (three) times daily before meals. OLOPATADINE (PAZEO) 0.7 % DROP Place in each eye. OTEZLA 30 MG TABLET PANTOPRAZOLE 20 MG EC TABLET Take 40 mg by mouth daily. RIZATRIPTAN 10 MG TABLET Take 1 tablet by mouth. SULFASALAZINE 500 MG TABLET Take 500 mg by mouth 6 (six) times daily. VENLAFAXINE 75 MG TABLET Take 1 tablet by mouth. START taking Modified Medications as Prescribed No medications on file STOP taking these medications LEFLUNOMIDE 10 MG TABLET Take 10 mg by mouth 2 (two) times per week. HISTORY Past Medical History: Diagnosis Date Abnormal liver function test fatty liver-methotrexate discontinued Chronic headaches Diabetes mellitus, type 2 2000 Gastroparesis borderline normal gastric emptying study for liquid-poor gastric emptying for solids HLD (hyperlipidemia) HTN (hypertension) Psoriasis increased SI joint uptake on bonescan PUD (peptic ulcer disease) Thyroid cancer papillary s/p thyroidectomy Past Surgical History: Procedure Laterality Date HYSTERECTOMY 12/2012 partial THYROIDECTOMY 03/25/2012 TONSILLECTOMY Family History Problem Relation Age of Onset Arthritis Father Social History Socioeconomic History Marital status: Spouse name: Not on file Number of children: Not on file Years of education: Not on file Highest education level: Not on file Occupational History Not on file Social Needs Financial resource strain: Not on file Food insecurity: Worry: Not on file Inability: Not on file Transportation needs: Medical: Not on file Non-medical: Not on file Tobacco Use Smoking status: Never Smoker Smokeless tobacco: Never Used Substance and Sexual Activity Alcohol use: Yes Comment: occasional Drug use: Not on file Sexual activity: Not on file Lifestyle Physical activity: Days per week: Not on file Minutes per session: Not on file Stress: Not on file Relationships Social connections: Talks on phone: Not on file Gets together: Not on file Attends adventist service: Not on file Active member of club or organization: Not on file Attends meetings of clubs or organizations: Not on file Relationship status: Not on file Intimate partner violence: Fear of current or ex partner: Not on file Emotionally abused: Not on file Physically abused: Not on file Forced sexual activity: Not on file Other Topics Concern Not on file Social History Narrative accounts REVIEW OF SYSTEMS Constitutional: denies weight change, denies fatigue and hair loss Eyes: denies blurry vision, denies diplopia and denies pain. Neck: denies pain, denies swollen glands Cardiovascular: denies chest pain , denies irregular pulse and denies palpitations. Respiratory: denies dyspnea on exertion and denies shortness of breath. Gastrointestinal: denies abdominal pain, denies constipation and denies diarrhea. Genitourinary: denies burning and denies dysuria. Musculoskeletal: denies back pain, denies muscle pain and denies weakness. Skin: + joint and back pain, sees rheumatology Neuro: denies numbness , denies tingling and denies tremor. Psych: negative. Endocrine: denies goiter, denies hair loss, denies intolerance to cold, denies intolerance to heat, denies polydipsia, denies polyphagia and denies polyuria. PHYSICAL EXAM No results found for: POCGLU CREATININE (MG/DL) Date Value 05/11/2013 0.60 Creatinine, Serum-LC (mg/dL) Date Value 11/10/2015 0.73 CREATININE-Q (mg/dL) Date Value 12/25/2016 0.80 Cholesterol, Total-LC (mg/dL) Date Value 11/10/2015 165 CHOLESTEROL, TOTAL-Q (mg/dL) Date Value 09/18/2019 108 HDL Cholesterol-LC (mg/dL) Date Value 11/10/2015 34 (L) HDL CHOLESTEROL-Q (mg/dL) Date Value 09/18/2019 40 (L) LDL Cholesterol Calc-LC (mg/dL) Date Value 11/10/2015 78 [id number]-O (mg/dL (calc)) Date Value 09/18/2019 44 Triglycerides-LC (mg/dL) Date Value 11/10/2015 264 (H) TRIGLYCERIDES-Q (mg/dL) Date Value 09/18/2019 163 (H) No results found for: ALBUCREAT, UALBCREAT POCT HBA1C (%) Date Value 01/11/2020 8.7 09/01/2019 9.2 (A) BP 112/78 (BP Location: Left arm, Patient Position: Sitting, BP CUFF SIZE: Adult Large) | Pulse 90| Resp 16 | Ht 5' 7" (1.702 m) | Wt 207 lb (93.9 kg) | BMI 32.42 kg/m General: alert, oriented times three, no apparent distress, appearing age appropriate. Skin: skin color and turgor are normal Head: normocephalic, no masses, lesions, tenderness or abnormalities. Eyes: anicteric sclera, pupils are equally round and reactive to light. Neck: +acanthosis nigricans Thyroid: normal size and consistency to palaption Lungs: good diaphragmatic excursion, lungs clear to auscultation bilaterally. Heart: regular rate and rhythm, no murmurs, gallops or rubs. Abdomen: abdomen soft, non-tender, normal active bowel sounds, + obese. Neuro: unremarkable without focal findings. Extremities/Musculoskeletal: no cyanosis, no edema . Component Latest Ref Rng & Units 09/18/2019 09/18/2019 9:34 AM 9:34 AM T-4, FREE-Q 0.8 - 1.8 ng/dL 1.5 TSH, 3RD GENERATION-Q mIU/L 1.37 ASSESSMENT/PLAN 1. Uncontrolled type 2 diabetes mellitus with complication -A1C (target=6-7%): 8.9 (02/16)--->9.2(08/19)--.8.7(01/20) hx of poor control -glucose range: CGM(-01/11/19) BG scan 4/day sensor AVG 234 % time CGM data captured 78% Glucose stat very high >240 46% high 140-240 45% in Target range 100-140 7% low 70-99 2% very low <70 0% I spent 30 minutes to download and review CGM with patient -complication: nephropathy -microalbumin -medication limitation: metformin cause GI symptoms -diet:reports compliance -exercise: limited by joint pain Discussed to start starlix, she agree Plan -reinterated to scan CGM >7 times per day -urged compliance with diet/exercise - POCT HEMOGLOBIN A1C TEST Patient Instructions Continue metformin Trulicity and nateglinide Change U 500 insulin to 100 units with meal three time a day, if you skip your lunch , take 40-50 units at noon time 2. Essential hypertension, benign Comment: at goal - lisinopril 30 mg tablet; Take 1 tablet by mouth daily. 3. Postsurgical hypothyroidism Last TFTs was at supratherapeutic level. LT4 was reduced from 225 to 200mcg daily in 01/2019 TFts normal in 08/2019 Plan - levothyroxine 200 mcg tablet; Take 1 tablet by mouth every morning. 4. Dyslipidemia TG still elevated Plan - atorvastatin 40 mg tablet; Take 1 tablet by mouth at bedtime. Dispense: 90 tablet; Refill: - LOVAZA, [id number] ethyl esters, 1 gram capsule; Take 2 capsules by mouth 2 (two) times daily with meals. Continue fenofibrate 5. Thyroid cancer Followed by [facility] - levothyroxine 200 mcg tablet; Take 1 tablet by mouth every morning. documented in this encounter Plan of Treatment Date Type Specialty Care Team Description 05/16/2020 Office Visit Endocrinology Diabetes & Jonathan Pradhan MD Metabolism [address] [place], [place] [id number] Health Maintenance Due Date Last Done Comments DTaP,Tdap,and Td Vaccines 1985 (1 - Tdap) PAP SMEAR 1995 Breast Cancer Screening 2014 (MAMMOGRAM) PNEUMOCOCCAL 0-64 YEARS 12/22/2018 10/27/2018 COMBINED SERIES (2 of 3 - PPSV23) HgA1C 07/11/2020 01/11/2020, 09/01/2019, 02/24/2019, Additional history exists EYE EXAM 08/11/2020 08/11/2019 INFLUENZA VACCINE (#1) 2020 10/24/2015 Postponed from 08/01/2019 ([place] Guidelines) LDL-C 09/18/2020 09/18/2019, 02/24/2019, 04/16/2017, Additional history exists URINE MICROALBUMIN 09/18/2020 09/18/2019, 12/25/2016, 11/10/2015, Additional history exists CREATININE (SERUM) 12/20/2020 12/20/2019, 12/25/2016, 11/10/2015, Additional history exists FOOT EXAM 01/11/2021 01/11/2020, 01/11/2020, 09/01/2019, Additional history exists documented as of this encounter Procedures Procedure Name Priority Date/Time Associated Diagnosis Comme nts POCT HEMOGLOBIN A1C Routine 01/11/2020 Uncontrolled type 2 R esults for this TEST diabetes mellitus with proce dure are in the complication results section . documented in this encounter Results POCT HEMOGLOBIN A1C TEST (01/11/2020) Pathologist Sig nature POCT HBA1C 8.7 4 - 6 % Specimen Blood - CAPILLARY documented in this encounter Visit Diagnoses Diagnosis Uncontrolled type 2 diabetes mellitus wi th complication - Primary Type II or unspecified type diabetes jose litus with unspecified complication, uncontrolled Essential hypertension, benign Dyslipidemia Other and unspecified hyperlipidemia Postsurgical hypothyroidism Thyroid cancer Malignant neoplasm of thyroid gland documented in this encounter [phone] [id number] (Work) documented as of this encounter Advance Directives Type Date Recorded 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
--- OUTSIDE RECORDS SUMMARY | 2020-05-04 10:17 | XMS REPORT | Summary of Care ---
:1975 Author Organization [facility] Address [address] [place] [address] Care Team Providers Name Role Phone Francis Orosco Primary Care Provider Reason for Visit Reason Comments Follow-up Diabetes Mellitus II Encounter Details Date Type Department Care Team Description 01/11/2020 Office Visit [facility] Adeel Pradhan MD Uncontrolled type 2 diabetes mellitus wi th complication (Primary Dx); Endocrinology- [address] [facility] hypertension, benign; [facility] Dyslipidemia; Professional Office [place], [place] Posts urgical hypothyroidism; Building [facility] Thyroid cancer [address] [place] [address] [address] [place] [address] Allergies Active Allergy Reactions Severity [...] type 2 diabetes mellitus with complication LOVAZA, [id number] Take 2 360 capsule 1 Active ethyl [...] compli cations 11/16/2013 Overview: ICD10 Diagnosis Term Nremt Utility Thyroid cancer 11/16/2013 HLD (hyperlipidemia) 11/16/2013 Essential hypertension, benign 11/16/2013 Vitamin D deficiency 11/16/2013 Overview: ICD10 Diagnosis Term Nremt Utility Plantar fasciitis 11/08/2011 Abnormal liver function test 07/12/2011 Therapeutic drug monitoring 07/12/2011 Skin rash 06/07/2011 Late effect of adverse effect of drug, medical or biol ogical substance 10/17/2010 Cervical radiculopathy 09/04/2010 Psoriatic arthropathy 09/04/2010 documented as of this encounter (statuses as of 02/09/2020) Resolved Problems Problem Noted Date Resolved Date Hypothyroidism 11/16/2013 10/24/2015 Overview: ICD10 Diagnosis Term Nremt Utility documented as of this encounter (statuses [...] Comments Blood Pressure 112/78 01/11/2020 4:32 PM STOPBOARD ASSEMBLER Pulse 90 01/11/2020 4:32 PM STOPBOARD ASSEMBLER Temperature - - Respiratory Rate 16 01/11/2020 4:32 PM STOPBOARD ASSEMBLER Oxygen Saturation - - Inhaled Oxygen Concentration - - Weight 93.9 kg (207 lb) 01/11/2020 4:32 PM STOPBOARD ASSEMBLER Height 170.2 cm (5' 7") 01/11/2020 4:32 PM STOPBOARD ASSEMBLER Body Mass Index 32.42 01/11/2020 4:32 PM STOPBOARD ASSEMBLER documented in this encounter Patient Instructions Patient InstructionsAdeel Pradhan MD - 01/11/2020 4:00 PM CSTContinue metformin Trulicity and nateglinide Change U 500 insulin to 100 units with meal three time a day, if you skip your lunch , take 40-50 units at noon time BOARD ASSEMBLER documented in this encounter Progress Notes Adeel [...] mcg daily Thyroid cancer: being managed at [facility] Received records from [facility] PTC T2N*M* S/p right lobectomy followed by completion thyroidectomy. PTC: Pathology 03/2012 Right 2.2 cm, no extrathyroidal extension but positive lymphovascular invasion. Resected margin werepositive RAIA- Not treated 10/2017_ ( [facility] labs) TG and TG AB negative FT4 [...] Take 1 tablet by mouth daily. LOVAZA, [id number] ETHYL ESTERS, 1 GRAM CAPSULE Take 2 [...] file Gets together: Not on file Attends catholic service: Not on file Active member of [...] Cholesterol Calc-LC (mg/dL) Date Value 11/10/2015 78 [id number] (mg/dL (calc)) Date Value 09/18/2019 44 Triglycerides-LC [...] bedtime. Dispense: 90 tablet; Refill: - LOVAZA, ujtsq-[id number] ethyl esters, 1 gram capsule; Take 2 capsules by mouth 2 (two) times daily with meals. Continue fenofibrate 5. Thyroid cancer Followed by [facility] - levothyroxine 200 mcg tablet; Take 1 tablet by mouth every morning. 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
--- OUTSIDE RECORDS SUMMARY | 2020-05-04 10:18 | XMS REPORT | Summary of Care ---
:1975 Author Organization [facility] Address [address] [place] [id number] Care Team Providers Name Role Phone Francis Orosco Primary Care Provider Reason for Visit Reason Comments Refill Request Encounter Details Date Type Department Care Team Description 04/10/2020 Refill [facility] Endocrinology- Adeel Pradhan MD Refill Request [address] Professional Office [address] [place] [address] Allergies Active Allergy Reactions Severity Noted Date Comments Diphenhydramine Hcl Rash Low 09/04/2010 Fluticasone Rash Low 09/04/2010 documented as of this encounter (statuses as of 04/10/2020) Medications Medication Sig Dispensed Refills Start End [...] Each 1 Each 0 Active reader (FREESTYLE MINDY daily. 9 14 DAY READER) MiscIndications: Diabetes [...] type 2 diabetes mellitus with complication LOVAZA, [id number] Take 2 360 capsule 1 Active ethyl esters, 1 gram capsules by 9 capsuleIndications: mouth 2 Dyslipidemia (two) times daily with meals. FREESTYLE MINDY 14 DAY 1 Each every 2 Kit 5 Active SENSOR KitIndications: 14 0 Diabetes mellitus type (fourteen) 2, uncontrolled, days. without complications OTEZLA 30 mg tablet 0 Active 0 NATEGLINIDE 120 mg TAKE ONE 90 tablet 2 A ctive tabletIndications: TABLET BY 0 Uncontrolled type 2 MOUTH THREE diabetes mellitus with TIMES A DAY complication BEFORE MEALS nateglinide 120 mg Take 1 90 tablet 5 04/10/20 D iscontinued tabletIndications: tablet by 9 20 Uncontrolled type 2 mouth 3 diabetes mellitus with (three) complication times daily before meals. documented as of this encounter (statuses as of 04/10/2020) Active Problems Problem Noted Date Postsurgical hypothyroidism 10/24/2015 Trigger thumb of both thumbs 08/10/2014 Elevated liver enzymes 05/18/2014 Metabolic syndrome X 05/18/2014 Diabetes mellitus type 2, uncontrolled, without compli cations 11/16/2013 Overview: ICD10 Diagnosis Term Medical Records Auditor Utility Thyroid cancer 11/16/2013 HLD (hyperlipidemia) 11/16/2013 Essential hypertension, benign 11/16/2013 Vitamin D deficiency 11/16/2013 Overview: ICD10 Diagnosis Term Medical Records Auditor Utility Plantar fasciitis 11/08/2011 Abnormal liver function test 07/12/2011 Therapeutic drug monitoring 07/12/2011 Skin rash 06/07/2011 Late effect of adverse effect of drug, medical or biol ogical substance 10/17/2010 Cervical radiculopathy 09/04/2010 Psoriatic arthropathy 09/04/2010 documented as of this encounter (statuses as of 04/10/2020) Resolved Problems Problem Noted Date Resolved Date Hypothyroidism 11/16/2013 10/24/2015 Overview: ICD10 Diagnosis Term Medical Records Auditor Utility documented as of this encounter (statuses as of 04/10/2020) Immunizations Name Administration Dates Next Due Influenza [...] of this encounter Last Filed Vital Signs Not on filedocumented in this encounter Plan of Treatment Date Type Specialty Care Team Description 05/16/2020 Office Visit Endocrinology Diabetes & Pradhan, Jonathan croft MD Metabolism [address] [place] [address] [phone] Health Maintenance Due Date Last Done Comments DTaP,Tdap,and Td Vaccines 1985 (1 - Tdap) PAP SMEAR 1995 Breast Cancer Screening 2014 (MAMMOGRAM) PNEUMOCOCCAL 0-64 YEARS 12/22/2018 10/27/2018 COMBINED SERIES (2 of 3 - PPSV23) HgA1C 07/11/2020 01/11/2020, 09/01/2019, 02/24/2019, Additional history exists EYE EXAM 08/11/2020 08/11/2019 INFLUENZA VACCINE (Season 08/30/2020 10/24/2015 Postpo sidney from Ended) 08/01/2020 (Alte r[place] Guidelines) FOOT EXAM 09/01/2020 09/01/2019, 09/01/2019, 02/24/2019, Additional history exists LDL-C 09/18/2020 09/18/2019, 02/24/2019, 04/16/2017, Additional history exists URINE MICROALBUMIN 09/18/2020 09/18/2019, 12/25/2016, 11/10/2015, Additional history exists CREATININE (SERUM) 12/20/2020 12/20/2019, 12/25/2016, 11/10/2015, Additional history exists documented as of this encounter Results Not on filedocumented in this encounter Visit Diagnoses Diagnosis Uncontrolled type 2 diabetes mellitus wi th complication Type II or unspecified type diabetes jose litus with unspecified complication, uncontrolled documented in this encounter Insurance Payer Benefit Plan / Group Subscriber ID Effective Dates Phone Address Type AETNA AETNA [facility] CARE [id number] 2018-Present PPO documented as of this encounter Advance Directives Type Date Recorded 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
--- OUTSIDE RECORDS SUMMARY | 2020-05-04 10:18 | XMS REPORT | Summary of Care ---
:1975 Author Organization [facility] Address [address] [place] [address] Care Team Providers Name Role Phone Francis Orosco Primary Care Provider Reason for Visit Reason Comments Refill Request Encounter Details Date Type Department Care Team Description 04/12/2020 Refill [facility] Endocrinology- Adeel Pradhan MD Refill Request [address] Professional Office [address] [place] [address] Allergies Active Allergy Reactions Severity Noted Date Comments Diphenhydramine Hcl Rash Low 09/04/2010 Fluticasone Rash Low 09/04/2010 documented as of this encounter (statuses as of 04/12/2020) Medications Medication Sig Dispensed Refills Start End [...] Postsurgical mouth every hypothyroidism, Thyroid morning. cancer insulin regular hum inject 54 mL 1 [...] type 2 diabetes mellitus with complication LOVAZA, [id number] Take 2 360 capsule 1 Active ethyl [...] with TIMES A DAY complication BEFORE MEALS LISINOPRIL 30 mg TAKE ONE 90 tablet 1 Act montrell tabletIndications: TABLET BY 0 Essential hypertension, MOUTH DAILY benign lisinopril 30 mg Take 1 90 tablet 1 04/12/20 Dis continued tabletIndications: tablet by 9 20 Essential hypertension, mouth daily. benign documented as of this encounter (statuses as of 04/12/2020) Active Problems Problem Noted Date Postsurgical hypothyroidism 10/24/2015 Trigger thumb of both thumbs 08/10/2014 Elevated liver enzymes 05/18/2014 Metabolic syndrome X 05/18/2014 Diabetes mellitus type 2, uncontrolled, without compli cations 11/16/2013 Overview: ICD10 Diagnosis Term Rod Tape Operator Utility Thyroid cancer 11/16/2013 HLD (hyperlipidemia) 11/16/2013 Essential hypertension, benign 11/16/2013 Vitamin D deficiency 11/16/2013 Overview: ICD10 Diagnosis Term Rod Tape Operator Utility Plantar fasciitis 11/08/2011 Abnormal liver function test 07/12/2011 Therapeutic drug monitoring 07/12/2011 Skin rash 06/07/2011 Late effect of adverse effect of drug, medical or biol ogical substance 10/17/2010 Cervical radiculopathy 09/04/2010 Psoriatic arthropathy 09/04/2010 documented as of this encounter (statuses as of 04/12/2020) Resolved Problems Problem Noted Date Resolved Date Hypothyroidism 11/16/2013 10/24/2015 Overview: ICD10 Diagnosis Term Rod Tape Operator Utility documented as of this encounter (statuses as of 04/12/2020) Immunizations Name Administration Dates Next Due Influenza [...] Diabetes & Jonathan Pradhan MD Metabolism [address] [place], [place] [id number] Health Maintenance Due Date Last Done Comments [...] filedocumented in this encounter Visit Diagnoses Diagnosis Essential hypertension, benign documented in this encounter Insurance Payer Benefit Plan / Group Subscriber ID Effective Dates Phone Address Type AETNA AETNA [facility] [id number] 2018-Present PPO documented as of this encounter Advance Directives Type Date Recorded 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
--- OUTSIDE RECORDS SUMMARY | 2020-05-04 10:19 | XMS REPORT | Summary of Care ---
:1975 Author Organization [facility] Address [address] [place] [address] Care Team Providers Name Role Phone Francis Orosco Primary Care Provider Reason for Visit Reason Comments Refill Request Encounter Details Date Type Department Care Team Description 04/13/2020 Refill [facility] Endocrinology- Adeel Pradhan MD Refill Request [address] Professional Office [address] [place] [address] Allergies Active Allergy Reactions Severity Noted Date Comments Diphenhydramine Hcl Rash Low 09/04/2010 Fluticasone Rash Low 09/04/2010 documented as of this encounter (statuses as of 04/13/2020) Medications Medication Sig Dispensed Refills Start End [...] mouth every morning and at 1200 (noon). insulin regular hum inject 54 mL 1 [...] type 2 diabetes mellitus with complication LOVAZA, [id number] Take 2 360 capsule 1 Active ethyl [...] BY 0 Essential hypertension, MOUTH DAILY benign LEVOTHYROXINE 200 mcg TAKE ONE 90 tablet 1 Active tabletIndications: TABLET BY 0 Postsurgical MOUTH EVERY hypothyroidism, Thyroid MORNING cancer levothyroxine 200 mcg Take 1 90 tablet 1 04/13/20 Discontinued tabletIndications: tablet by 9 20 Postsurgical mouth every hypothyroidism, Thyroid morning. cancer documented as of this encounter (statuses as of 04/13/2020) Active Problems Problem Noted Date Postsurgical hypothyroidism 10/24/2015 Trigger thumb of both thumbs 08/10/2014 Elevated liver enzymes 05/18/2014 Metabolic syndrome X 05/18/2014 Diabetes mellitus type 2, uncontrolled, without compli cations 11/16/2013 Overview: ICD10 Diagnosis Term Particle Board Supervisor Utility Thyroid cancer 11/16/2013 HLD (hyperlipidemia) 11/16/2013 Essential hypertension, benign 11/16/2013 Vitamin D deficiency 11/16/2013 Overview: ICD10 Diagnosis Term Particle Board Supervisor Utility Plantar fasciitis 11/08/2011 Abnormal liver function test 07/12/2011 Therapeutic drug monitoring 07/12/2011 Skin rash 06/07/2011 Late effect of adverse effect of drug, medical or biol ogical substance 10/17/2010 Cervical radiculopathy 09/04/2010 Psoriatic arthropathy 09/04/2010 documented as of this encounter (statuses as of 04/13/2020) Resolved Problems Problem Noted Date Resolved Date Hypothyroidism 11/16/2013 10/24/2015 Overview: ICD10 Diagnosis Term Particle Board Supervisor Utility documented as of this encounter (statuses as of 04/13/2020) Immunizations Name Administration Dates Next Due Influenza [...] Diabetes & Jonathan Pradhan MD Metabolism [address] [place], [place] [address] Health Maintenance Due Date Last Done Comments [...] filedocumented in this encounter Visit Diagnoses Diagnosis Postsurgical hypothyroidism Thyroid cancer Malignant neoplasm of thyroid gland documented in this encounter Insurance Payer Benefit Plan / Group Subscriber ID Effective Dates Phone Address Type AETNA AETNA [facility] [id number] 2018-Present PPO documented as of this encounter Advance Directives Type Date Recorded 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
[2020-05-04] MEDS ORDERED: ONDANSETRON 4 MG/2 ML VIAL ONE (10:49)
[2020-05-04] MEDS ORDERED: NA CHLORIDE 0.9% 1,000 ML ONE (10:49)
[2020-05-04 10:57] LABS: Absolute Lymphocytes (CBC) 1.3 K/uL (0.7-4.9); Basophils % 0.6 % (0-1.3); Lymphocytes % 8.5 % (15.3-44.8); MPV 7.2 fL (7.6-11.3); RBC Red Blood Cell Count 5.02 M/uL (3.86-4.86)
[2020-05-04 11:30] LABS: ALT/SGPT 27 U/L (12-78); Alkaline Phosphatase 56 U/L (45-117); BUN Blood Urea Nitrogen 2 mg/dL (7-18); Bicarbonate 21 mmol/L (21-32); Bilirubin Direct 0.2 mg/dL (0-0.2); Bilirubin Total 0.5 mg/dL (0.2-1.0); Glucose Level 234 mg/dL (74-106); Sodium Level 137 mmol/L (136-145)
--- NOTE | 2020-05-04 11:30 | RAD REPORT ---
EXAM DESCRIPTION: CT - Abdomen Pelvis W Contrast - 05/04/2020 11:03 am CLINICAL HISTORY: Abdominal pain COMPARISON: none. TECHNIQUE: Computed axial tomography of the abdomen pelvis was obtained. 100 cc Isovue-300 was admin istered intravenously. Oral contrast was not requested which limits evaluation of bowel. All CT scans are performed using dose optimization technique as appropriate and may include automated exposure control or mA/KV adjustment according to patient size. FINDINGS: Fatty liver. Mild hepatomegaly Spleen, pancreas, adrenals and left kidney are unremarkable Small low-density area right kidney reaches the periphery. There is no evidence of diverticulitis. Normal appendix 7 x 2 centimeter area of increased density within the anterior aspect of the anterior subcutaneous fa t of the lower abdomen IMPRESSION: Small low-density area within the right kidney probably mild pyelonephritis Fatty liver with mild hepatomegaly. 7 x 2 centimeter area of increased density within the anterior aspect of the anterior subcutaneous fa t of the lower abdomen. This may indicate an area of cellulitis and should be correlated clinically
[2020-05-04 11:31] LABS: Albumin 3.6 g/dL (3.4-5.0); Lipase 50 U/L (73-393); Protein, Total 7.6 g/dL (6.4-8.2)
[2020-05-04 11:31] LABS: Urine Blood NEGATIVE (NEG); Urine Glucose 3+ (NEG); Urine Protein NEGATIVE (NEG); Urine Specific Gravity 1.015 (1.005-1.030); Urine pH 5.5 (5.0-7.0)
[2020-05-04 11:33] LABS: AST/SGOT 18 U/L (15-37); Potassium 3.6 mmol/L (3.5-5.1)
[2020-05-04] MEDS ORDERED: CEFTRIAXONE/SWI 1gm 2 GM/20 ML SYR ONE (12:13)
--- NOTE | 2020-05-04 13:38 | ER ---
Nurse's Notes [facility] Name: Cecilia Ragland Age: 44 yrs Sex: Female : 1975 Arrival Date: 05/04/2020 Time: 09:20 Bed 18 Private MD: Diagnosis: Pyelonephritis Presentation: 05/04 09:37 Chief complaint: Patient states: pain to right lateral abdomen that began 3 days ago, aa5 chills, and vomiting. Pt denies cough, denies SOB. Reports she has chronic diarrhea. 09:37 Coronavirus screen: Proceed with normal triage. Patient denies a cough. Patient denies aa5 shortness of breath or difficulty breathing. Patient denies measured and/or subjective temperature greater than 100.4F prior to today's visit. Patient denies travel on a cruise ship or to a country the [facility] currently lists as an affected area. Patient denies contact with known and/or suspected case of COVID-19. Ebola Screen: Patient negative for fever greater than or equal to 101.5 degrees Fahrenheit, and additional compatible Ebola Virus Disease symptoms. Initial Sepsis Screen: Does the patient meet any 2 criteria? No. Patient's initial sepsis screen is negative. Does the patient have a suspected source of infection? No. Patient's initial sepsis screen is negative. Risk Assessment: Do you want to hurt yourself or someone else? Patient reports no desire to harm self or others. Onset of symptoms was May 2020. 09:37 Method Of Arrival: Ambulatory aa5 09:37 Acuity: HAI 3 aa5 CARD SETTER: 13:56 LMP N/A - Hysterectomy ca1 Historical: - Allergies: 09:37 Flonase; aa5 09:37 Benadryl; aa5 - PMHx: 09:37 Diabetes - IDDM; Hypertension; Arthritis; aa5 - PSHx: 09:37 Thyroidectomy; partial hysterectomy; Thyroidectomy (cancer); aa5 - Immunization history:: Adult Immunizations unknown. - Social history:: Smoking status: Patient denies any tobacco usage or history of. Screenin:40 Abuse screen: Denies threats or abuse. Denies injuries from another. Nutritional ca1 screening: No deficits noted. Tuberculosis screening: No symptoms or risk factors identified. Fall Risk IV access (20 points). Assessment: 10:40 General: Appears in no apparent distress. comfortable, Behavior is calm, cooperative, ca1 appropriate for age. Pain: Complains of pain in posterior aspect of right lateral abdomen and anterior aspect of right lateral abdomen Pain does not radiate. Pain currently is 6 out of 10 on a pain scale. Pain began 2-3 days ago. Neuro: Level of Consciousness is awake, alert, obeys commands, Oriented to person, place, time, situation. Cardiovascular: Heart tones S1 S2 present Capillary refill < 3 seconds Patient's skin is warm and dry. Respiratory: Airway is patent Respiratory effort is even, unlabored, Respiratory pattern is regular, symmetrical, Breath sounds are clear bilaterally. GI: Abdomen is round non-distended, Bowel sounds present X 4 quads. Abd is soft and non tender X 4 quads. : Urine is clear. : Reports burning with urination, urgency. EENT: No signs and/or symptoms were reported regarding the EENT system. Derm: Skin is intact, is healthy with good turgor, Skin is pink, warm \T\ dry. Musculoskeletal: Circulation, motion, and sensation intact. Capillary refill < 3 seconds. 11:45 Reassessment: Patient appears in no apparent distress at this time. Patient and/or ca1 family updated on plan of care and expected duration. Pain level reassessed. Patient is alert, oriented x 3, equal unlabored respirations, skin warm/dry/pink. 12:57 Reassessment: Patient appears in no apparent distress at this time. Patient and/or ca1 family updated on plan of care and expected duration. Pain level reassessed. Patient is alert, oriented x 3, equal unlabored respirations, skin warm/dry/pink. 13:21 Reassessment: PO challenge completed and tolerated. Notified provider. ca1 13:55 Reassessment: Patient appears in no apparent distress at this time. Patient is alert, ca1 oriented x 3, equal unlabored respirations, skin warm/dry/pink. Vital Signs: 09:37 BP 110 / 76; Pulse 116; Resp 18 S; Temp 98.4(O); Pulse Ox 96% on R/A; Weight 92.99 kg aa5 (R); Height 5 ft. 7 in. (170.18 cm) (R); Pain 5/10; 11:45 BP 120 / 63; Pulse 110; Resp 16 S; Pulse Ox 98% on R/A; ca1 12:43 BP 124 / 61; Pulse 105; Resp 15; Pulse Ox 98% ; jl7 13:21 BP 115 / 65; Pulse 106; Resp 19 S; Pulse Ox 97% on R/A; ca1 09:37 Body Mass Index 32.11 (92.99 kg, 170.18 cm) aa5 ED Course: 09:20 Patient arrived in ED. ag5 09:37 Arm band placed on. aa5 09:39 Kevin Paniagua PA is PHCP. [facility] 09:39 Lester Pantoja MD is Attending Physician. [facility] 09:58 Carmina Martinez, BALDO is Primary Nurse. ca1 10:05 Triage completed. aa5 10:40 Patient has correct armband on for positive identification. Bed in low position. Call ca1 light in reach. Side rails up X 1. Pulse ox on. NIBP on. Warm blanket given. 10:48 No provider procedures requiring assistance completed. Initial lab(s) drawn, by ks, ca1 sent to lab. Inserted saline lock: 20 gauge in left antecubital area, using aseptic technique. ,using aseptic technique. by BALDO Stewart Blood collected. 10:54 Urine collected: clean catch specimen, clear. jl7 11:06 CT Abd/Pelvis - IV Contrast Only In Process Unspecified. EDMS 13:56 IV discontinued. ca1 Administered Medications: 10:49 Drug: NS 0.9% 1000 ml Route: IV; Rate: 1 bolus; Site: left antecubital; ca1 12:02 Follow up: Response: No adverse reaction; IV Status: Completed infusion ca1 10:50 Drug: Zofran (Ondansetron) 4 mg Route: IVP; Site: left antecubital; ca1 12:01 Follow up: Response: No adverse reaction; Nausea is decreased ca1 12:10 Drug: Rocephin 2 grams Route: IV; Rate: calculated rate; Site: left antecubital; ca1 13:14 Follow up: Response: No adverse reaction; IV Status: Completed infusion ca1 Outcome: 13:37 Discharge ordered by . [facility] 13:55 Discharged to home ambulatory. ca1 13:55 Condition: stable 13:55 Discharge instructions given to patient, Instructed on discharge instructions, follow up and referral plans. no drinking with medication, no driving heavy equipment, medication usage, Demonstrated understanding of instructions, follow-up care, medications, Prescriptions given X 3. 13:56 Patient left the ED. ca1 Addendum: 05/07/2020 12:18 Addendum: Culture Results: Positive urine culture. Phone call Attempt #1 Left voicemadeep rodney b [phone]. 13:09 Addendum: Culture Results: Prescription called-in to pharmacy of choice. Nitrofurantoin h b 100mg PO BID x 10 days per SET UP MACHINIST Francia, [facility]. Signatures: Dispatcher [employer] EDMS Kevin Paniagua PA PA Aminah Dickinson RN RN aa5 Josephine Woods RN RN hb Terry De La Vega RN RN jl7 Carmina Martinez RN RN ca1 Jovanni Solitario ag5 Corrections: (The following items were deleted from the chart) 05/04 12:58 12:57 BP 124 / 61; Pulse 109bpm; Resp 16bpm; Spontaneous; Pulse Ox 97% RA; ca1 ca1
--- NOTE | 2020-05-04 13:38 | EDPHYS ---
Physician Documentation [facility] Name: Cecilia Ragland Age: 44 yrs Sex: Female : 1975 Arrival Date: 05/04/2020 Time: 09:20 Bed 18 Private MD: ED Physician Lester Pantoja HPI: 05/04 10:02 This 44 yrs old Female presents to ER via Ambulatory with complaints of Side jmm Pain. 10:02 The patient presents with abdominal pain in the upper abdomen, in the lower abdomen. jmm Onset: The symptoms/episode began/occurred gradually, 2 day(s) ago. The symptoms do not radiate. Associated signs and symptoms: Pertinent positives: nausea and vomiting. The symptoms are described as achy, sharp. Modifying factors: The symptoms are alleviated by nothing, the symptoms are aggravated by. The patient has not experienced similar symptoms in the past. This is a 44 year old female with a history of DM, HTN that presents to the ED with complaints of abdominal pain, vomiting, chills, beginning yesterday. . 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 - Social history:: Smoking status: Patient denies any tobacco usage or history of. ROS: 10:02 Constitutional: Positive for body aches, chills. jmm 10:02 Cardiovascular: Negative for chest pain. 10:02 Respiratory: Negative for shortness of breath, wheezing. 10:02 Abdomen/GI: Positive for abdominal pain, nausea and vomiting. 10:02 Back: Positive for flank pain, on the right. 10:02 All other systems are negative. Exam: 10:02 Constitutional: This is a well developed, well nourished patient who is awake, alert, jmm and in no acute distress. Head/Face: atraumatic. Eyes: EOMI, no conjunctival erythema appreciated ENT: Moist Mucus Membranes Neck: Trachea midline, Supple Chest/axilla: Normal chest wall appearance and motion. Cardiovascular: Regular rate and rhythm. No edema appreciated Respiratory: Normal respirations, no respiratory distress appreciated 10:02 Abdomen/GI: Inspection: abdomen appears normal, Bowel sounds: normal, Palpation: soft, mild abdominal tenderness, in the right upper quadrant and right lower quadrant. 10:02 Musculoskeletal/extremity: ROM: intact in all extremities. 10:02 Skin: Appearance: Color: normal in color. 10:02 Neuro: Orientation: is normal, Mentation: is normal, Memory: is normal. 10:02 Psych: Behavior/mood is pleasant, cooperative. Vital Signs: 09:37 BP 110 / 76; Pulse 116; Resp 18 S; Temp 98.4(O); Pulse Ox 96% on R/A; Weight 92.99 kg aa5 (R); Height 5 ft. 7 in. (170.18 cm) (R); Pain 5/10; 11:45 BP 120 / 63; Pulse 110; Resp 16 S; Pulse Ox 98% on R/A; ca1 12:43 BP 124 / 61; Pulse 105; Resp 15; Pulse Ox 98% ; jl7 13:21 BP 115 / 65; Pulse 106; Resp 19 S; Pulse Ox 97% on R/A; ca1 09:37 Body Mass Index 32.11 (92.99 kg, 170.18 cm) aa5 MDM: 10:02 Patient medically screened. yvette 13:33 Data reviewed: vital signs, nurses notes. Counseling: I had a detailed discussion with yvette the patient and/or guardian regarding: the historical points, exam findings, and any diagnostic results supporting the discharge/admit diagnosis, lab results, radiology results, the need for outpatient follow up, to return to the emergency department if symptoms worsen or persist or if there are any questions or concerns that arise at home. ED course: Patient is alert and non toxic in appearance in the ED. Patient is able to tolerate PO. Patient is given strict return precautions. Patient understood and agrees with the plan of care. . 05/04 10:28 Order name: Basic Metabolic Panel; Complete Time: 11:34 [facility] 05/04 10:28 Order name: CBC with Diff; Complete Time: 11:02 [facility] 05/04 10:28 Order name: Hepatic Function; Complete Time: 11:34 [facility] 05/04 10:28 Order name: Lipase; Complete Time: 11: [facility] 05/04 10:33 Order name: Lactate; Complete Time: 11:27 [facility] 05/04 10:33 Order name: Urine Culture [facility] 05/04 10:28 Order name: IV Saline Lock; Complete Time: 10:53 [facility] 05/04 10:32 Order name: CT Abd/Pelvis - IV Contrast Only; Complete Time: 11:46 [facility] 05/04 11:01 Order name: Urine Dipstick--Ancillary (enter results); Complete Time: 11:32 [facility] 05/04 11:01 Order name: Urine --Ancillary (enter results); Complete Time: 11:32 [facility] 05/04 11:21 Order name: CREATININE WHOLE BLOOD; Complete Time: 11:27 [facility] 05/04 10:28 Order name: Labs collected and sent; Complete Time: 10:53 [facility] 05/04 10:28 Order name: Urine Dipstick-Ancillary (obtain specimen); Complete Time: 10:53 [facility] 05/04 10:28 Order name: Urine Test (obtain specimen); Complete Time: 10:53 [facility] 05/04 13:04 Order name: PO challenge; Complete Time: 13:14 jm Administered Medications: 10:49 Drug: NS 0.9% 1000 ml Route: IV; Rate: 1 bolus; Site: left antecubital; ca1 12:02 Follow up: Response: No adverse reaction; IV Status: Completed infusion ca1 10:50 Drug: Zofran (Ondansetron) 4 mg Route: IVP; Site: left antecubital; ca1 12:01 Follow up: Response: No adverse reaction; Nausea is decreased ca1 12:10 Drug: Rocephin 2 grams Route: IV; Rate: calculated rate; Site: left antecubital; ca1 13:14 Follow up: Response: No adverse reaction; IV Status: Completed infusion ca1 Disposition: 15:34 Co-signature as Attending Physician, Lester Pantoja MD I agree with the assessment and kdr plan of care. Disposition: 05/04/20 13:37 Discharged to Home. Impression: Pyelonephritis. - Condition is Stable. - Discharge Instructions: Pyelonephritis, Adult. - Prescriptions for Zofran ODT 4 mg Oral tablet,disintegrating - place 1 tablet by TRANSLINGUAL route every 6-8 hours; 20 tablet. Ultracet 37.5- 325 mg Oral Tablet - take 1 tablet by ORAL route every 6 hours - for up to 5 days; do not exceed 8 tablets per day.; 20 tablet. cefpodoxime 200 mg Oral Tablet - take 1 tablet by ORAL route every 12 hours with food; 20 tablet. - Medication Reconciliation Form, Thank You Letter, Antibiotic Education, Prescription Opioid Use form. - Follow up: Private Physician; When: 2 - 3 days; Reason: Recheck today's complaints, Continuance of care, Re-evaluation by your physician. Signatures: Dispatcher [employer] EDLester Almazan MD MD kdr Mickail, Joel, PA PA jmm Calderon, Audri, RN RN aa5 Carmina Martinez RN RN ca1 Corrections: (The following items were deleted from the chart) 13:56 13:37 05/04/2020 13:37 Discharged to Home. Impression: Pyelonephritis. Condition is ca1 Stable. Forms are Medication Reconciliation Form, Thank You Letter, Antibiotic Education, Prescription Opioid Use. Follow up: Private Physician; When: 2 - 3 days; Reason: Recheck today's complaints, Continuance of care, Re-evaluation by your physician. yvette
[2020-05-04 14:07] VITALS: TEMP 98.4
[2020-05-04 14:21] VITALS: BP 115/65; O2SAT 97
== END 2020-05-04 13:56 | disposition home or self-care (01) ==
LOC: ER 09:18
DX: N12 Tubulo-interstitial nephritis, not specified as acute or chronic (principal); I10 Essential (primary) hypertension; Z88.8 Allergy status to other drugs, medicaments and biological substances
CPT/HCPCS: 96365; 96361; 87088; 85025; 87086; 80048; 36415; 81025; 82565; 80076; 83605; 87077; 87186; 81003; 83690; 74177; 96375; 99284; Q9967; J0696; J7030; J2405

== ENCOUNTER 2021-04-10 06:31 | Day surgery (SDC) | payer BC ==
[2021-04-10] MEDS ORDERED: NA CHLORIDE 0.9% 1,000 ML ONE (07:09)
[2021-04-10] MEDS ORDERED: CEFAZOLIN/SWI 2gm 2 GM/20 ML SYR ONE (07:09)
[2021-04-10] MEDS ORDERED: MIDAZOLAM HCL 2 MG/2 ML INJ ONE (07:27)
[2021-04-10] MEDS ORDERED: LIDOCAINE 2% MPF 5 ML VIAL ONE (07:27)
[2021-04-10] MEDS ORDERED: FENTANYL CITR 100 MCG/2 ML ONE (07:27)
[2021-04-10] MEDS ORDERED: propofoL 200 MG/20 ML VIAL IV ONE ×2 (07:27→08:18)
[2021-04-10] MEDS ORDERED: LIDOCAINE 1% W/EPI 1:100,000 MDV 20 ML VIAL ONE (07:37)
[2021-04-10] MEDS ORDERED: NS 0.9% VIAL 20 ML ONE (07:37)
[2021-04-10] MEDS: BOTU TOX TYPE A 100 UNIT/VIAL ID NR ×2 (08:08→08:10)
[2021-04-10 09:18] VITALS: BP 105/56; TEMP 97; O2SAT 97
--- NOTE | 2021-04-10 19:30 | OP ---
Date of Procedure: 04/10/2021 Surgeon: Cintia Duffy MD Preoperative Diagnosis: Refractory overactive bladder. Postoperative Diagnoses: Refractory overactive bladder. The patient also with type 2 diabetes and s tress urinary incontinence. Procedures Performed: Cystoscopy and Botox injection, 100 units given. Anesthesia: MAC. Estimated Blood Loss: Minimal. Specimens: No specimens. Complications: No complications. Drains: No drains. Condition: Stable. Finding: Cystoscopy negative for any tumors. Botox injection done and there was excellent hemostasi s. Procedure In Detail: She is a 45-year-old with mixed urinary incontinence, evaluated in the office f or this, had cysto to rule out any tumors after she had failed medical therapy with an anticholinergi c as well as a beta-3 agonist. After urodynamic testing, her predominant problem has been proven to be overactive bladder. So proceeded with counseling her for the third line treatments either with sa cral neuromodulation or Botox injections. The patient preferred to stay locally here and get the Bot ox injections. So, I counseled her on the risk of urinary retention and recurrent urinary tract infe ctions being the most predominant one including all the others. She was consented and brought to the OR. Her preop urine dip negative for any infection. She did have history of acute bacterial cystit is in the past, which were properly treated. In the preop area, consent was redone, her was present by her side, Q and A to their satisfac tion was done. Then brought back to the OR where 2 g of Ancef were given. She was placed in a dorsa l lithotomy position after MAC was given. Vulva, vagina, and perineum were prepped and draped in a s terile fashion. Bladder was drained with the sheath on the cystoscope. Then cystoscopy with 30-degr ee lens, 17-Sami sheath and normal saline was done. After visualizing the entire bladder and ident ifying both ureteric orifices and the upper border of the trigone, the Laborie needle was taken and w as inserted and set to a depth of 4 mm. Then, 100 units of Botox was mixed with saline to reconstitu te to 10 mL. Plan was to give 20 injections of 5 mL at each site in 3 rows. The first layer was abo ut 1 cm above the trigone, 5 injections. Then followed by 7 and 2 more injections. First row 5, sec ond row 7 and the third row of 8 were given with 2 extra 0.5 mL saline injections to flush the tubing of the Laborie needle. Once this was done, there was excellent hemostasis. The areas of minimal bl eeding were hemostatic with a clot. The needle was retracted. Bladder was drained. Scope was remov ed and the patient was recovered from anesthesia and taken to the PACU in a stable condition. SUNG babb. She will have a 5-day followup postop with me. She has antibiotics that she will continue fo r 3 more days, and her hospital will be notified of this. She has clear instructions on restarting h er home medications. CLAIRE/PORTER Voice ID: [id number] Report ID: [id number]
== END 2021-04-10 09:10 | disposition home or self-care (01) ==
LOC: OR 06:31
PROVIDERS: ATTEND Obstetrics & Gynecology
PROC: 3E0K8GC Introduction of Other Therapeutic Substance into Genitourinary Tract, Via Natural or Artificial Opening Endoscopic (ICD-10-PCS; principal; 2021-04-10 07:30)
DX: N32.81 Overactive bladder (principal); Z20.822 Contact with and (suspected) exposure to COVID-19
CPT/HCPCS: 82947; 52287; U0002; J2704 ×2; J0585; J2250; J3010; J0690; J7030

== ENCOUNTER 2022-06-24 11:52 | Day surgery (SDC) | payer BC ==
[2022-06-05 17:07] LABS: SARS-CoV-2 Antigen Rapid Res Negative (Negative)
[2022-06-24] MEDS ORDERED: CEFAZOLIN SODIUM 1 GM/VIAL ONE (12:17)
[2022-06-24] MEDS ORDERED: NA CHLORIDE 0.9% 1,000 ML ONE (12:17)
[2022-06-24] MEDS: CEFAZOLIN 2 GM IN 0.9% NACL 2 GM/100 ML BAG ONE ×2 (12:50→13:58)
[2022-06-24] MEDS ORDERED: propofoL 200 MG/20 ML VIAL IV ONE (13:07)
[2022-06-24] MEDS ORDERED: FENTANYL CITR 100 MCG/2 ML ONE (13:07)
[2022-06-24] MEDS ORDERED: MIDAZOLAM HCL 2 MG/2 ML INJ ONE (13:08)
[2022-06-24] MEDS ORDERED: ROCURONIUM 50 MG/5 ML VIAL IV ONE (13:08)
[2022-06-24] MEDS ORDERED: LIDOCAINE 1% MPF 5 ML VIAL ONE (13:08)
[2022-06-24] MEDS ORDERED: ONDANSETRON 4 MG/2 ML VIAL ONE (13:08)
[2022-06-24] MEDS ORDERED: LIDOCAINE 1% 20 ML MDV ONE (13:15)
[2022-06-24] MEDS ORDERED: SUCCINYLCHOLINE 20 MG/ML (10 ML) IV ONE (13:57)
[2022-06-24] MEDS: BUPIVACAINE 0.25% PF 30 ML VIAL ONE ×2 (14:08→14:33)
[2022-06-24] MEDS ORDERED: MEPERIDINE HCL 25 MG/ML SYR ONE (17:08)
[2022-06-24 17:18] VITALS: BP 113/58; TEMP 96.8; O2SAT 99
--- NOTE | 2022-06-24 19:01 | OP ---
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 Preoperative Diagnosis: Refractory overactive bladder. Postoperative Diagnosis: Refractory overactive bladder. Procedures Performed: InterStim nerve stimulation stage I, incision and implantation of tined corazon polar lead electrodes into foramen S3 with fluoroscopic guidance for needle placement. Anesthesia: General with an endotracheal tube. Complications: No complications. Drains: No drains. Specimens: No specimens. Estimated Blood Loss: Minimal. Findings: The lead was placed in S3 in an optimal position. Good responses were obtained on all the electrodes, both for toes and Scott. Brief History And Physical: The patient is a 46-year-old with type 2 diabetes and psoriatic arthriti s as her major medical problems besides others. Has had mixed urinary incontinence, especially overa ctive bladder. Has been investigated with cystoscopy, negative for any tumors. Underwent medical th erapy with anticholinergic and beta-3 agonist, both did not help her in her symptoms. Botox was used and she had urinary retention and urinary tract infection. So, she has been counseled about the sac ral neuromodulation therapy as the alternative third line therapy for this patient and she was consen sloane and brought in for staged I. Description Of Procedure: The patient was properly identified and placed in a prone position per OR protocol. 3 g of Ancef were given and SCDs were placed. General endotracheal anesthesia was adminis tered without paralysis. She was given succinylcholine. Pillows were placed under the abdomen to flatten the sacrum and under her shins to allow the toes to dangle freely. The patient was prepped and draped in a sterile fashion after she was placed in a pro ne position. The C-arm was draped and moved into position. This was to provide AP imaging and fluor oscopically map the sacral region and marked out the midline of the sacrum, SI joint, sciatic notches , medial foraminal borders, and the sacral foramina. The C-arm was moved into the lateral position t o image the area of the sacral promontory to the coccyx and the helix was identified and local inject ion was given with 1% lidocaine mixed with epinephrine 10 cc. The lateral margins of both sides of t he sacrum were marked out by a marking pen and started at a point at least 2 cm above the point where the S3 foramina was injected onto the skin and all the way to the periosteum of the sacrum. A foramen needle was introduced above the sciatic notch at least 2.5 cm lateral to the sacral midline filling for the foraminal margins until S3 foramen was identified and penetrated. The depth of the needle was confirmed and had to be adjusted fluoroscopically. Proper needle position was confirmed by the lateral and the AP views. Then, direct observation of th e lifting of the perineum or bellowing and the plantar flexion of the great toe were noted. However, the response was obtained only on a high-voltage and the angle of the needle was not as parallel to the joint space and so a cm above and slightly lateral to this original insertion of the needle, I us ed another foramen needle to penetrate the S3 space and once this was done, there was an excellent lo w voltage stem both for Scott and for the plantar flexion of the toe. The first foramina needle stylet was removed. A directional guide was placed and confirmed fluorosco pically. The foramen needle was then removed and an incision was made peripherally to the directiona l guide through the fascial layer and lead introducer sheath with dilator was placed over the directi onal guide and directed into the foramen ensuring the radiopaque marker of the lead introducer did no t extend beyond the anterior edge of the sacrum. The dilator was unlocked and removed the long direc tional guide. Lead was then placed through the introducer sheath to the first guideline. Position w as checked fluoroscopically. The lead was then further introduced until 3 electrodes were visible be low the sacrum. Each electrode was tested on the location and there was visualization of Scott and plantar flexion of the greater toe. After satisfactory positioning was confirmed both in the AP and lateral views with fluoro, the introducer sheath was retracted under continuous fluoro deploying the tined leads into the perisacral tissue. Further incision was made into subcutaneous tissues posteri or to the iliac crest, lateral to the sacrum. Blunt dissection was performed until the gluteal fasci a was identified and hemostasis was achieved. The tunneling tool with straw was placed from the lead exit site subcutaneously to the incised pocket site. The tunneling tool was removed and the lead wa s fed through the straw and pulled out at the pocket site. The lead was then cleansed of bodily flui ds and dried with a protective boot placed over the lead. The lead was inserted into the temporary p ercutaneous extension and the metal bands were aligned. The 4 set screws were tied in with the exten amber and the boot was pushed over the connection and silk ties were sutured to the boot grooves on 1 side of the connection. The tunnel was made subcutaneously and exited to a puncture site above the i psilateral buttock. The percutaneous extension was placed through the straw and exposed and connecte d to the twist lock cable. The wounds were irrigated and closed with 3-0 chromic sutures and then 4-0 Monocryl sutures. The cou nts were correct. The wounds were covered with a 4 x 4 gauze, Tegaderm was placed over the incisions . Gauze was placed under the twist lock cable connector as well. EBL was minimal. The patient was transferred to the recovery room in stable condition. Using the external test stimulator, the patien t was programmed to the electrode of optimal sensation and given instructions on utilizing the director web al test stimulator prior to discharge. The dilator will be kept and will return to the office this F riday to discuss the results of this test so that we can progress to stage II. EBL was minimal. The patient was recovered from anesthesia and taken to PACU in stable condition. CLAIRE/PORTER Voice ID: [id number] Report ID: [id number]
--- NOTE | 2022-06-25 08:26 | RAD REPORT ---
EXAM DESCRIPTION: RAD - Fluoroscopy <1 Hour - 06/25/2022 7:33 am CLINICAL HISTORY: Venous catheter insertion. SACRAL NEURO MODULATION COMPARISON: US. GUIDANCE FOR NDL PLACE. dated 03/13/2012 FINDINGS: Fluoroscopic imaging is submitted from placement of a venous catheter. Details of the pro cedure not available. Fluoroscopy time: 1.5 minutes.
== END 2022-06-24 17:25 | disposition home or self-care (01) ==
LOC: OR 11:52
PROVIDERS: ATTEND Obstetrics & Gynecology
PROC: 0JH70CZ Insertion of Single Array Rechargeable Stimulator Generator into Back Subcutaneous Tissue and Fascia, Open Approach (ICD-10-PCS; 2022-06-24)
PROC: 01HY0MZ Insertion of Neurostimulator Lead into Peripheral Nerve, Open Approach (ICD-10-PCS; principal; 2022-06-24 13:00)
DX: N32.81 Overactive bladder (principal); N39.46 Mixed incontinence; Z20.822 Contact with and (suspected) exposure to COVID-19
CPT/HCPCS: 36415; 82947 ×2; 76000; 87811; 64581; 64590; J2704; J0330; J2250; J3010; J2175; J0690 ×2; J7030; J2405

== ENCOUNTER 2022-07-02 06:01 | Day surgery (SDC) | payer BC ==
[2022-07-02 06:35] LABS: SARS-CoV-2 Antigen Rapid Res Negative (Negative)
[2022-07-02] MEDS ORDERED: NA CHLORIDE 0.9% 1,000 ML ONE (06:48)
[2022-07-02] MEDS ORDERED: CEFAZOLIN 2 GM IN 0.9% NACL 2 GM/100 ML BAG ONE (06:48)
[2022-07-02] MEDS ORDERED: MIDAZOLAM HCL 2 MG/2 ML INJ ONE (07:19)
[2022-07-02] MEDS ORDERED: propofoL 200 MG/20 ML VIAL IV ONE (07:19)
[2022-07-02] MEDS ORDERED: FENTANYL CITR 100 MCG/2 ML ONE (07:20)
[2022-07-02] MEDS ORDERED: LIDOCAINE 2% MPF 5 ML VIAL ONE (07:21)
[2022-07-02] MEDS ORDERED: ONDANSETRON 4 MG/2 ML VIAL ONE (07:22)
[2022-07-02] MEDS ORDERED: DEXTROSE 10%-WATER 500 ML IV ONE (07:26)
[2022-07-02] MEDS: LIDOCAINE 1% W/EPI 1:100,000 MDV 50 ML VIAL ONE ×2 (07:28→08:02)
[2022-07-02] MEDS ORDERED: CEFAZOLIN SODIUM 1 GM/VIAL ONE (07:53)
[2022-07-02] MEDS ORDERED: RIZATRIPTAN BENZOATE 10 MG PO PRN (09:07)
[2022-07-02] MEDS ORDERED: HYDROCODONE/APAP 5/325 MG TAB PO PRN (09:09)
[2022-07-02] MEDS ORDERED: PROMETHAZINE INJ 25 MG/ML AMP IV PRN (09:09)
--- NOTE | 2022-07-02 09:13 | P.BOP ---
Preoperative diagnosis: refractory OAB Postoperative diagnosis: same Primary procedure: Stage 2 Interstim, implantation of permanent battery and programming Estimated blood loss: min Specimen: none Findings: lead attached to non rechargable battery, wire positioned under the battery Anesthesia: MAC (and local both) Complications: None Transferred to: Recovery Room Condition: Good
[2022-07-02] MEDS ORDERED: GOLIMUMAB IV SCH (09:15)
[2022-07-02] MEDS ORDERED: HOME MED 1 EA UNK (Estradiol [Estradiol] 42.5 GM Cream.Appl) VG SCH (09:15)
[2022-07-02 09:38] VITALS: BP 115/61; TEMP 97.1; O2SAT 97
[2022-07-02] MEDS ORDERED: NATEGLINIDE 120 MG PO SCH (12:00)
[2022-07-02] MEDS ORDERED: GABAPENTIN 300 MG CAP PO SCH (14:00)
[2022-07-02] MEDS ORDERED: INSULN SQ SCH (14:00)
[2022-07-02] MEDS ORDERED: [UNRECOGNIZED DRUG - OTHER] SQ SCH (14:00)
[2022-07-02] MEDS ORDERED: INSULIN REGULAR HUMAN 500 UNIT/ML SQ SCH (14:00)
[2022-07-02] MEDS ORDERED: HOME MED 1 EA UNK (Sulfasalazine [Sulfasalazine] 500 MG Tablet) PO SCH (14:00)
[2022-07-02] MEDS ORDERED: METFORMIN HCL 500 MG TAB PO SCH (17:00)
[2022-07-02] MEDS ORDERED: HYDROXYCHLOROQUINE 200MG TAB PO SCH (21:00)
[2022-07-02] MEDS ORDERED: DHA PO SCH (21:00)
[2022-07-02] MEDS ORDERED: ATORVASTATIN 20 MG TAB PO SCH (21:00)
[2022-07-02] MEDS ORDERED: EPA PO SCH (21:00)
[2022-07-02] MEDS ORDERED: APREMILAST 30 MG PO SCH (21:00)
[2022-07-02] MEDS ORDERED: OMEGA PO SCH (21:00)
[2022-07-02] MEDS ORDERED: HOME MED 1 EA UNK (Calcium Carbonate [Calcium] 600 MG Tablet) PO SCH (21:00)
[2022-07-02] MEDS ORDERED: FISH OIL PO SCH (21:00)
[2022-07-03] MEDS ORDERED: HOME MED 1 EA UNK (Levocetirizine Dihydrochloride [Xyzal] 5 MG Tablet) PO SCH (09:00)
[2022-07-03] MEDS ORDERED: PANTOPRAZOLE 40MG TABLET PO SCH (09:00)
[2022-07-03] MEDS ORDERED: HOME MED 1 EA UNK (Magnesium Oxide [Magnesium] 500 MG Capsule) PO SCH (09:00)
[2022-07-03] MEDS ORDERED: MONTELUKAST 10 MG TAB PO SCH (09:00)
[2022-07-03] MEDS ORDERED: SPIRONOLACTONE 25 MG TABLET PO SCH (09:00)
[2022-07-03] MEDS ORDERED: HOME MED 1 EA UNK (Levothyroxine Sodium [Levothyroxine] 200 MCG Capsule) PO SCH (09:00)
[2022-07-03] MEDS ORDERED: HOME MED 1 EA UNK (Cholecalciferol (Vitamin D3) [Vitamin D3] 2000 UNIT Capsule) PO SCH (09:00)
[2022-07-03] MEDS ORDERED: HOME MED 1 EA UNK (Fenofibrate,Micronized [Fenofibrate] 200 MG Capsule) PO SCH (09:00)
[2022-07-03] MEDS ORDERED: HOME MED 1 EA UNK (Lisinopril [Zestril] 30 MG Tablet) PO SCH (09:00)
--- NOTE | 2022-07-03 18:45 | OP ---
Date of Procedure: 07/02/2022 Surgeon: Cintia Duffy MD Occupational Health And Safety Officer: None. Preoperative Diagnosis: Refractory overactive bladder. Postoperative Diagnosis: Refractory overactive bladder. Procedure Performed: Stage II InterStim with implantation of the permanent battery and programming. Complications: None. Specimens: None. Drains: None. Ebl: Was minimal. Findings: Lead was found to be well attached to the external wire, was carefully removed without any lead injury, attached to the non rechargeable battery and was well positioned with the wire in the b ack of the battery. This pocket was created at least 0.5 inch deep in the right buttock. was tested after positioning in the pocket . Anesthesia was MAC and local with lidocaine. The patient transferred to the recovery room in stable condition. The patient is a 46-year-old female with refractory overactive bladder, diabetes, and autoimmune diso rders, presented with successful stage I with good response to stimulation with an external laterally . So she was consented for permanent battery implantation and brought to the OR. She was on antibio tics after the last procedure and will be given some after the procedure here as well. Procedure In Detail: After informed consent was verified, she was brought back to the OR, placed in a supine position on the operating table. After MAC was given, she was placed in a prone position an d an oxygen mask was placed. The back was prepped and draped in a sterile fashion all the way from mid back to below the buttocks. After time-out was done, an Ancef 2 g was given. Procedure was started. The incision where the le ad wire was attached to the leg for the external wire was opened up with the help of a scalpel after injecting 1% lidocaine with epi in the area, at least 15 cc was injected. The incision was extended so that the battery could be implanted and the second layer of closure of the fascial layer was opene d up as well. Then, the wire was found with boot. Carefully the boot was unscrewed to release the w nevin. Then, the boot and the wire were cut and the external wire pulled out without any contamination through the inside. The pocket was extended adequately on the bottom slightly more on the top. Then, the lead wire was c leaned with a dry Ray-Ed and inserted into the non-rechargeable battery in the hexagonal screw was u sed to tighten this to 2.6. The lead wire was placed posterior to the battery and the battery was im planted and inserted into the pocket. Allis clamps were used to bring the skin together and the end and checked was done and once it was confirmed closed the wound in 2 layers with 3-0 chromic on the d eeper aspect and then running 4-0 Monocryl on the top. The sterile bandage was placed. Other areas were also glued with the help of Dermabond as well as before the bandages were placed. Mike maldonado was recovered from anesthesia and taken to PACU in stable condition. Her battery will be restarted tomorrow. She will follow up in 1 week. MICHAEL Voice ID: [id number] Report ID: [id number]
[2022-07-05] MEDS ORDERED: ASPIRIN EC 81 MG TAB PO SCH (09:00)
[2022-07-05] MEDS ORDERED: HOME MED 1 EA UNK (Celecoxib [Celecoxib] 200 MG Capsule) PO SCH (21:00)
[2022-07-09] MEDS ORDERED: DULAGLUTIDE 3 MG/0.5 ML SQ SCH (09:00)
== END 2022-07-02 09:47 | disposition home or self-care (01) ==
LOC: OR 06:01
PROVIDERS: ATTEND Obstetrics & Gynecology
PROC: 0JH70BZ Insertion of Single Array Stimulator Generator into Back Subcutaneous Tissue and Fascia, Open Approach (ICD-10-PCS; principal; 2022-07-02 07:30)
DX: N32.81 Overactive bladder (principal); N39.46 Mixed incontinence; Z20.822 Contact with and (suspected) exposure to COVID-19
CPT/HCPCS: 36415; 87811; 64590; J2704; J2250; J3010; J0690 ×2; J7030; J2405

== ENCOUNTER 2022-09-12 09:44 | Emergency (ER) | payer BC, OTHER ==
--- OUTSIDE RECORDS SUMMARY | 2022-09-12 09:51 | XMS REPORT | Continuity of Care Document ---
:1975 Author Organization [facility] t Address [address] [place] [address] Care Team Providers Name Role Phone MARIELLA SUSAN BRICE Primary Care Physician Unavailable Reji Lopez MD Attending Clinician Adina Crowder Attending Clinician REJI LOPEZ Attending Clinician Unavailable Paige Barrow MD Attending Clinician PAIGE BARROW Attending Clinician Unavailable Doctor Unassigned, Princess Anne Attending Clinician Unavailable Radha Macdonald Attending Clinician ADINA PARRY Attending Clinician Unavailable ERICA DOWNING Attending Clinician Unavailable Erica Downing MD Attending Clinician JESS MOLINA Attending Clinician Unavailable Saturnino Fields Attending Clinician Mateo Gutierrez DO Attending Clinician MATEO GUTIERREZ Attending Clinician Unavailable MATEO GUTIERREZ Attending Clinician Unavailable Pob, [facility] Main Attending Clinician Unavailable Donnell Durand DO Attending Clinician Radiology Attending Clinician Unavailable RADIOLOGY Attending Clinician Unavailable DENNISE FERNANDES Attending Clinician Unavailable Lester Hernández Attending Clinician PAIGE BARROW Admitting Clinician Unavailable ERICA DOWNING Admitting Clinician Unavailable REJI LOPEZ Admitting Clinician Unavailable Payers Payer Name Policy Type Policy Number Effective Date Expiration Date S ourayaan [place] [id number] 2020 00:00:00 BCBS PPO POS EPO [id number] 2020 00:00:00 CHOICE [employer]ET[employer] HMO POS [id number] 2018 00:00:00 QPOS [employer] TRS CARE [id number] 2018 00:00:00 Problems Condition Condition Condition Status Onset Resolution Last Treating Co mments Source Name Details Category Date Date Treatment Clinician Date Postsurgic Postsurgic Disease Active 2014-12 U dallin al al 1-24 ity of hypothyro[place] dis[place] dism [place] Trigger Trigger Disease Active Univers thumb of thumb of 9-10 ity of both both 00:00: [place] thumbs thumbs 00 Medical Branch Elevated Elevated Disease Active Unive rs liver liver 6-18 ity of enzymes enzymes 00:00: [place] [facility] Metabolic Metabolic Disease Active Uni vers syndrome X syndrome X 6-18 it y of 00:00: [place] Medical [facility] Uncontroll Uncontroll Disease Active 2012-12 Overview : Univers ed type 2 ed type 2 2-17 Formattin i ty of diabetes diabetes 00:00: g of this Georges as mellitus mellitus 00 note Medica l with with might be Branch complicati complicati different on on from the original. ICD10 Diagnosis Term Fast Food Shift Lead Utility Dyslipidem Dyslipidem Disease Active 2012-12 U dallin ia ia 2-17 ity of 00:00: [place] 00 Medical Branch Essential Essential Disease Active 2012-12 Uni vers hypertensi hypertensi 2-17 it y of on, benign on, benign [place]: [place] Vitamin D Vitamin D Disease Active 2012-12 Overview: Univers deficiency deficiency 2-17 Formattin ity of 00:00: g of this [place] note Medical might be Branch different from the original. ICD10 Diagnosis Term Fast Food Shift Lead Utility Plantar Plantar Disease Active 2010-12 Univers fasciitis fasciitis 2-09 ity of 00:00: [place] 00 Medical Branch Abnormal Abnormal Disease Active Unive rs liver liver 8-12 ity of function function 00:00: [place] test test 00 Medical Branch Therapeuti Therapeuti Disease Active U nivers c drug c drug 8-12 ity of monitoring monitoring 00:00: [place] Skin rash Skin rash Disease Active Uni vers 7-08 ity of 00:00: [place] 00 Medical Branch Late Late Disease Active 2009-12 Univers effect of effect of 1-17 ity of adverse adverse 00:00: [place] effect of effect of 00 Medi ernestina drug, drug, Branch medical or medical or biological biological substance substance Psoriatic Psoriatic Disease Active 2009-12 Uni vers arthropath arthropath 0-05 it y of y y 00:00: [place] 00 Medical Branch Cervical Cervical Disease Active 2009-12 Unive rs radiculopa radiculopa 0-05 it y of thy thy 00:00: [place] 00 Medical Branch Psoriatic Psoriatic Disease Active 2009-12 Uni vers arthropath arthropath 0-05 it y of y y 00:00: [place] 00 Medical Branch Diabetes Diabetes Problem Resolve 2022-02-14 Memoria mellitus mellitus d 00:19:06 l (disorder) (disorder) Teodoro bear Resolved Problem 02/14/2022 [facility] Hyperchole Hyperchol Problem Resolve 2022-02-14 Memoria sterolemia esterolemi d 00:19:06 l (disorder) a Fer n (disorder) Resolved Problem 02/14/2022 Medical Group Hypertensi Hypertens Problem Resolve 2022-02-14 Memoria ve montrell d 00:19:06 l disorder, disorder, Herm anival systemic systemic arterial arterial (disorder) (disorder) Resolved Problem 02/14/2022 Medical Group Malignant Malignant Problem Resolve 2022-02-14 Memoria tumor of tumor of d 00:19:06 l thyroid thyroid Ricardo gland gland (disorder) (disorder) Resolved Problem 02/14/2022 Medical Group Polypharma Polypharm Problem Active 2022-02-14 Memoria cy acy 00:19:06 l (finding) (finding) Herm anival Active Problem 02/14/2022 [facility] Urinary Urinary Problem Active 2022-02-14 Me moria incontinen incontinen 00:19:06 l ce ce Ricardo (finding) (finding) Active Problem 02/14/2022 [facility] Retention Retention Problem Active 2022-02-14 Memoria of urine of urine 00:19:06 l (disorder) (disorder) He rmanival Active Problem 02/14/2022 Medical Group 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 00:19:06 l (disorder) (disorder) He rmann Active Problem 02/14/2022 Medical Group Allergies, Adverse Reactions, Alerts Allergy Allergy Status Severity Reaction(s) Onset Inactive Treating Comm ents Source Name Type Date Date Clinician Diphenhy Drug Active Rash Univers dramine- Allergy 03-13 ity of Zinc 00:00: [place] Acetate 00 Medical Branch DIPHENHY Allergy Active Low Rash SLEH DRAMINE- 03-13 ZINC 00:00: ACETATE 00 FLUTICAS Allergy Active Low Rash SLEH ONE 03-13 00:00: 00 Diphenhy Propensi Active Rash 2009-12 Univer s dramine ty to 0-05 ity of Hcl adverse 00:00: [place] reaction 00 Medical s Branch Fluticas Propensi Active Rash 2009-12 Univer s one ty to 0-05 ity of adverse 00:00: [place] reaction 00 Medical s Branch Benadryl Benadryl Active Memori a damien Silva Flonase Flonase Active Memoria l Ricardo Social History Social Habit Start Date Stop Date Quantity Comments Source History SDOH University o f Alcohol Frequency [facility] edical Branch History [facility] University o f Alcohol Std [place] [facility] Drinks Branch History [facility] University o f Alcohol Binge [place] Medic al [place] Alcohol intake 2021-06-29 2021-06-29 Current drinker Unive rsity of 00:00:00 00:00:00 of alcohol [place] Medical (finding) [place] Tobacco use and 2012-06-12 2012-06-12 Smokeless tobacco Un iversity of exposure 00:00:00 00:00:00 non-user [facility] Alcohol Comment 2010-09-06 2010-09-06 occasional Universit y of 00:00:00 00:00:00 [facility] Sex [birth year] At [birth year] Universit y of 00:00:00 00:00:00 [facility] Smoking Status Start Date Stop Date Source Social History [facility] Medications Ordered Filled Start Stop Current Ordering Indication Dosage Frequency Signature Comments Components Source Medication Medication Date Date Medication? Clinician (SIG) Name Name metformin Yes TAKE ONE [email or web address] ER 500 mg 8-14 TABLET BY ity o f 24 hr 00:00: MOUTH [place] tablet 00 THREE Medical TIMES A Branch DAY WITH A MEAL metformin 0 Yes TAKE ONE Univ ers ER 500 mg 8-14 TABLET BY ity o f 24 hr 00:00: MOUTH [place] tablet 00 THREE Medical TIMES A Branch DAY WITH A MEAL Blood-Gluco 2021-0 Yes [id number] USE Univers se 7-25 DIRECTED, ity of Transmitter 00:00: [place] (DEXCOM G6 00 EVERY 90 Medic al TRANSMITTER DAYS Branch ) Petra Blood-Gluco 2021-0 Yes [id number] USE Univers se 7-25 DIRECTED, ity of Transmitter 00:00: [place] (DEXCOM G6 00 EVERY 90 Medic al TRANSMITTER DAYS Branch ) Petra LOVAZA, 0 Yes TAKE TWO Univer s OMEGA-3-ACI 6-20 CAPSULES ity of D ETHYL 00:00: BY MOUTH [place] ESTERS, 1 00 TWICE A Medical gram DAY WITH A Branch capsule MEAL LOVAZA, 0 Yes TAKE TWO Univer s OMEGA-3-ACI 6-20 CAPSULES ity of D ETHYL 00:00: BY MOUTH [place] ESTERS, 1 00 TWICE A Medical gram DAY WITH A Branch capsule MEAL TRULICITY 3 0 Yes [id number] INJECT 3 Univers mg/0.5 mL 6-13 MG UNDER ity of PnIj 00:00: THE SKIN [place] 00 ONCE Medical WEEKLY Branch TRULICITY 3 2021-0 Yes [id number] INJECT 3 Univers mg/0.5 mL 6-13 MG UNDER ity of PnIj 00:00: THE SKIN [place] 00 ONCE Medical WEEKLY Branch Blood-Gluco 0 Yes USE Univ ers se Sensor 5-02 DIRECTED ity of (DEXCOM G6 00:00: PER [place] SENSOR) 00 PACKAGE Medical Petra Branch Blood-Gluco 0 Yes USE Univ ers se Sensor 5-02 DIRECTED ity of (DEXCOM G6 00:00: PER [place] SENSOR) 00 PACKAGE Medical Petra Branch LISINOPRIL 2021-0 Yes [id number] TAKE ONE Univers 30 mg 3-22 TABLET BY ity of tablet 00:00: MOUTH [place] 00 DAILY Medical Branch ATORVASTATI 2021-0 Yes [id number] TAKE ONE Univers N 40 mg 3-22 TABLET BY ity of tablet 00:00: MOUTH AT [place] 00 BEDTIME Medical Branch LISINOPRIL 2021-0 Yes [id number] TAKE ONE Univers 30 mg 3-22 TABLET BY ity of tablet 00:00: MOUTH [place] 00 DAILY Medical Branch ATORVASTATI Yes [id number] TAKE ONE Univers N 40 mg 3-22 TABLET BY ity of tablet 00:00: MOUTH AT [place] [address] BEDTIME Medical Branch Sulfamethox Yes 1 tab, PO, Memoria azole 800 3-14 BID, for l MG / 17:06: UTI, X [address] Trimethopri 00 day, # 6 m 160 MG tab, 0 Oral Tablet Refill(s), [Bactrim] Pharmacy: [facility] [id number], 170.18, cm, 02/11/22 11:23:00 CDT, Height, 103.324, kg, 02/11/22 11:23:00 CDT, Weight 1 ML Yes 100 mg, Memoria golimumab 3-14 SUB-Q, l 100 MG/ML 16:51: q4wk, 0 Verenice nn Prefilled 00 Refill(s) Syringe [Simponi] Aspirin 81 Yes 81 mg = 1 Me moria MG Enteric 3-14 tab, PO, l Coated 16:50: Daily, # Ricardo Tablet 00 90 tab, 3 Refill(s) calcium Yes 1,800 mg = Srikanth derek carbonate 3-14 3 tab, PO, l 600 mg oral 16:50: Daily, 0 He rmann tablet 00 Refill(s) pantoprazol Yes 40 mg = 1 M emoria e 40 mg 3-14 tab, PO, l oral 16:49: Daily, # Ricardo enteric 00 90 tab, 0 coated Refill(s) tablet rizatriptan Yes 10 mg = 1 M emoria 10 mg oral 3-14 tab, PO, l tablet 16:49: Daily, PRN Verenice nn 00 for migraine headache, # 12 tab, 0 Refill(s) levocetiriz Yes 5 mg = 1 Me moria ine 3-14 tab, PO, l dihydrochlo 16:48: QPM, # 90 H ermann ride 5 MG 00 tab, 0 Oral Tablet Refill(s) [Xyzal] MAGNESIUM Yes 500 mg = 1 Me moria GLUCONATE 3-14 tab, PO, l 500 MG Oral 16:48: Daily, 0 He rmann Tablet 00 Refill(s) [Mag-G] montelukast Yes 10 mg = 1 M emoria 10 mg oral 3-14 tab, PO, l tablet 16:47: Bedtime, # Verenice nn 00 90 tab, 0 Refill(s) spironolact Yes 50 mg = 1 M emoria one 50 mg 3-14 tab, PO, l oral tablet 16:47: Daily, # Teodoro rmann 00 30 tab, 1 Refill(s) celecoxib Yes Univers 200 mg 3-14 ity of capsule 00:00: [place] [facility] celecoxib Yes Univers 200 mg 3-14 ity of capsule 00:00: [place] [facility] hydrocortis Yes Univer s one 1 % 3-09 ity of cream 00:00: [place] [facility] hydrocortis Yes Univer s one 1 % 3-09 ity of cream 00:00: [facility] dicyclomine Yes Univer s 20 mg 1-05 ity of tablet 00:00: [place] [facility] dicyclomine Yes Univer s 20 mg 1-05 ity of tablet 00:00: [place] [facility] insulin Yes [id number] U 500 Unive rs regular hum 1-04 insulin ity o f U-500 conc 00:00: 110 units [place] (HUMULIN R 00 with Medical U-500, breakfast Branch CONC, and lunch, KWIKPEN) take 130 500 unit/mL units at (3 mL) InPn dinner. Up to 350 units per day insulin Yes [id number] U 500 Unive rs regular hum 1-04 insulin ity o f U-500 conc 00:00: 110 units [place] (HUMULIN R 00 with Medical U-500, breakfast Branch CONC, and lunch, KWIKPEN) take 130 500 unit/mL units at (3 mL) InPn dinner. Up to 350 units per day levothyroxi 2020-12 Yes [id number] 200ug Take 1 Univers ne 200 mcg 1-26 tablet by ity of tablet 00:00: mouth [place] 00 every Medical morning. Branch TAKE ONE TABLET BY MOUTH EVERY MORNING levothyroxi 2020-12 Yes [id number] 200ug Take 1 Univers ne 200 mcg 1-26 tablet by ity of tablet 00:00: mouth [place] [address] every Medical morning. Branch TAKE ONE TABLET BY MOUTH EVERY MORNING CENTRUM 2020-12 Yes Take by Univers COMPLETE 12-23 mouth. ity of ORAL 11:12: [address] CENTRUM 2020-12 Yes Take by Univers COMPLETE 12-23 mouth. ity of ORAL 11:12: [address] CRANBERRY 2020-12 Yes Take by Unive rs CONCENTRATE 12-23 mouth. ity of ORAL 11:12: [address] CRANBERRY 2020-12 Yes Take by Unive rs CONCENTRATE 12-23 mouth. ity of ORAL 11:12: [address] nateglinide 2020-12 Yes [id number] 120mg Take 1 Univers 120 mg 1-23 tablet by ity of tablet 00:00: mouth 3 [place] [address] (three) Medical times [place] daily before meals. nateglinide 2020-12 Yes [id number] 120mg Take 1 Univers 120 mg 1-23 tablet by ity of tablet 00:00: mouth 3 [place] [address] (three) Medical times [place] daily before meals. amoxicillin 2020-12 Yes 875 mg = 1 Memoria 875 mg oral 0-21 tab, PO, l tablet 18:08: BID, X 10 Fer n 00 day, # 20 tab, 0 Refill(s), Pharmacy: [facility] [id number], 170.18, cm, 09/17/21 9:57:00 CDT, Height, 95.455, kg, 09/17/21 9:57:00 CDT, Weight Estradiol 2020-12 Yes 0 Memoria 0.1 MG/ML 0-18 Refill(s) l Vaginal 15:20: Ricardo Cream 00 Fenofibrate 2020-12 Yes 0 Memori a 200 MG Oral 0-18 Refill(s) l Capsule 15:19: [place] 00 0.5 ML 2020-12 Yes 0 Memoria dulaglutide 0-18 Refill(s) l 3 MG/ML 15:18: Ricardo Prefilled 00 Syringe [Trulicity] levothyroxi 2020-12 Yes 0 Memori a ne 200 mcg 0-18 Refill(s) l (0.2 mg) 15:17: [place] oral tablet 00 3 ML 2020-12 Yes 0 Memoria Regular 0-18 Refill(s) l Insulin, 15:17: Ricardo Human 500 00 UNT/ML Pen Injector [Humulin R] atorvastati 2020-12 Yes 0 Memori a n 40 mg 0-18 Refill(s) l oral tablet 15:17: Fer n 00 0.4 ML 2020-12 Yes 0 Memoria adalimumab 0-18 Refill(s) l 100 MG/ML 15:16: [place] Prefilled 00 Syringe [Humira] lisinopril 2020-12 Yes 0 Memoria 30 mg oral 0-18 Refill(s) l tablet 15:16: MetFORMIN 2020-12 Yes 0 Memoria (Eqv-Glucop 0-18 Refill(s) l sam XR) 15:16: Ricardo 500 mg oral 00 tablet, extended release sulfaSALAzi 2020-12 Yes 0 Memori a ne 500 mg 0-18 Refill(s) l oral tablet 15:15: Fer n 00 Hydroxychlo 2020-12 Yes 0 Memori a roquine 0-18 Refill(s) l Sulfate 200 15:15: Fer n MG Oral 00 Tablet apremilast 2020-12 Yes 0 Memoria 30 MG Oral 0-18 Refill(s) l Tablet 15:15: [place] [Otezla] 00 gabapentin 2020-12 Yes 0 Memoria 300 MG Oral 0-18 Refill(s) l Capsule 15:15: celecoxib 2020-12 Yes 0 Memoria 200 mg oral 0-18 Refill(s) l capsule 15:15: [place] 00 Solriamfeto 2020-12 Yes 0 Memori a l 150 MG 0-18 Refill(s) l Oral Tablet 15:09: Fer n [Sunosi] 00 0.4 ML 2020-12 Yes 0 Memoria adalimumab 0-18 Refill(s) l 100 MG/ML 15:09: [place] Prefilled 00 Syringe [Humira] nateglinide 2020-12 Yes 0 Memori a 120 mg oral 0-18 Refill(s) l tablet 15:08: Ricardo 00 Orange-3 2020-12 Yes 0 Memoria Acid Ethyl 0-18 Refill(s) l Esters 15:07: [place] (FDC) 1000 00 MG Oral Capsule Naproxen-Es 2020-0 Yes Take by Uni vers omeprazole 7-13 mouth. ity of Mag 500-20 09:28: [place] mg per 46 Medical tablet Branch Naproxen-Es 2020-0 Yes Take by Uni vers omeprazole 7-13 mouth. ity of Mag 500-20 09:28: [place] mg per 46 Medical tablet Branch modafinil 2020-0 Yes 200mg Take 200 Uni vers 200 mg 7-13 mg by ity of tablet 09:28: mouth. [place] [address] Medical Branch modafinil 202-0 Yes 200mg Take 200 Uni vers 200 mg 7-13 mg by ity of tablet 09:28: mouth. [place] [address] Medical Branch calcium 2020-0 Yes 3{tbl} Take 3 Univer s carbonate 7-13 tablets by ity of 600 mg 09:28: mouth. [place] calcium 10 Medical (1,500 mg) Branch tablet calcium 2020-0 Yes 3{tbl} Take 3 Univer s carbonate 7-13 tablets by ity of 600 mg 09:28: mouth. [place] calcium 10 Medical (1,500 mg) Branch tablet sulfaSALAzi 2020-0 Yes 500mg Take 500 U nivers ne 500 mg 7-13 mg by ity of tablet 09:27: mouth 6 [place] 58 (six) Medical times Branch daily. sulfaSALAzi 202-0 Yes 500mg Take 500 U nivers ne 500 mg 7-13 mg by ity of tablet 09:27: mouth 6 [place] 58 (six) Medical times Branch daily. hydroxychlo 2021-0 Yes 200mg Take 200 U nivers roquine 7-13 mg by ity of sulfate 09:27: mouth 2 [place] (HYDROXYCHL 57 (two) Medical OROQUINE times Branch ORAL) daily. hydroxychlo 2021-0 Yes 200mg Take 200 U nivers roquine 7-13 mg by ity of sulfate 09:27: mouth 2 [place] (HYDROXYCHL 57 (two) Medical OROQUINE times Branch ORAL) daily. azaTHIOprin 2021-0 Yes 25mg Take 25 mg Univers e 50 mg 7-13 by mouth ity of tablet 09:27: every [place] 48 other day. Medical Branch azaTHIOprin 2021-0 Yes 25mg Take 25 mg Univers e 50 mg 7-13 by mouth ity of tablet 09:27: every [place] 48 other day. Medical Branch Insulin 2020-0 Yes [id number] Use 3 Univ ers [place], 7-13 times ity of Disposable, 00:00: daily. Dx [place] (BD 00 E11.9 Medical ULTRAFINE Branch III MINI PEN) 31 gauge x 3/16" Ndle Insulin 2020-0 Yes [id number] Use 3 Univ ers [place], 7-13 times ity of Disposable, 00:00: daily. Dx [place] (BD 00 E11.9 Medical ULTRAFINE Branch III MINI PEN) 31 gauge x 3/16" Ndle metformin 2020-0 2022- No 500mg Take 1 Univ ers ER 500 mg 7-13 08-14 tablet by ity of 24 hr 00:00: 00:00 mouth 3 [place] tablet 00 :00 (three) [facility] daily with meals. Blood-Gluco 2020-0 Yes Use as Univ ers se 7-27 directed ity of Meter,Marcos 00:00: [place] nuous 00 Medical (DEXCOM G6 Branch QUALITY ASSURANCE COORDINATOR) Mis Blood-Gluco 2020-0 Yes Use as Univ ers se 7-27 directed ity of Meter,Marcos 00:00: [place] nuous 00 Medical (DEXCOM G6 Branch QUALITY ASSURANCE COORDINATOR) Mis GABAPENTIN 2020-0 Yes Univers ORAL 3-20 ity of 00:00: [address] GABAPENTIN 2020-0 Yes Univers ORAL 3-20 ity of 00:00: [address] OTEZLA 30 2019-0 Yes Univers mg tablet 1-21 ity of 00:00: [address] OTEZLA 30 2019-0 Yes Univers mg tablet 1-21 ity of 00:00: [address] pantoprazol 2018-12 Yes 40mg Take 40 mg Univers e 20 mg EC 0-02 by mouth ity o f tablet 15:52: daily. [address] pantoprazol 2018-12 Yes 40mg Take 40 mg Univers e 20 mg EC 0-02 by mouth ity o f tablet 15:52: daily. [address] fenofibrate Yes [id number] 200mg Take 1 Univers micronized 3-28 capsule by ity of 200 mg 00:00: mouth [place] capsule 00 daily with Medica l breakfast. [place] fenofibrate Yes [id number] 200mg Take 1 Univers micronized 3-28 capsule by ity of 200 mg 00:00: mouth [place] capsule 00 daily with Medica l breakfast. Branch magnesium Yes 1{capsu Take 1 Uni vers oxide 400 6-08 le} capsule by ity of mg capsule 00:00: mouth. [address] magnesium Yes 1{capsu Take 1 Uni vers oxide 400 6-08 le} capsule by ity of mg capsule 00:00: mouth. [address] montelukast Yes 1{tbl} Take 1 Un bernadine 10 mg 4-12 tablet by ity of tablet 00:00: mouth. [address] montelukast Yes 1{tbl} Take 1 Un bernadine 10 mg 4-12 tablet by ity of tablet 00:00: mouth. [address] aspirin 81 2006-12 Yes 1{tbl} Take 1 Uni vers mg EC 2-10 tablet by ity of tablet 00:00: mouth. [address] aspirin 81 2006-12 Yes 1{tbl} Take 1 Uni vers mg EC 2-10 tablet by ity of tablet 00:00: mouth. [address] rizatriptan Yes 1{tbl} Take 1 Un bernadine 10 mg 5-10 tablet by ity of tablet 00:00: mouth. [address] rizatriptan Yes 1{tbl} Take 1 Un bernadine 10 mg 5-10 tablet by ity of tablet 00:00: mouth. [address] Immunizations Ordered Filled Immunization Date Status Comments [facility] e Immunization Name Name Twinrix (hep a/hep 2019-04-01 Completed Univer sity of b) 00:00:00 [facility] Twinrix (hep a/hep 2019-04-01 Completed Univer sity of b) 00:00:00 [facility] Pneumococcal 13 2018-10-27 Completed Universit y of Conjugate, PCV13 00:00:00 [facility] dical (Prevnar 13) Branch Twinrix (hep a/hep 2018-10-27 Completed Univer sity of b) 00:00:00 [facility] Pneumococcal 13 2018-10-27 Completed Universit y of Conjugate, PCV13 00:00:00 [facility] dical (Prevnar 13) Branch Twinrix (hep a/hep 2018-10-27 Completed Univer sity of b) 00:00:00 [facility] Twinrix (hep a/hep 2018-09-23 Completed Univer sity of b) 00:00:00 [facility] Twinrix (hep a/hep 2018-09-23 Completed Univer sity of b) 00:00:00 [facility] Influenza Virus 2015-10-24 Completed Universit y of Vaccine Quad IM 3+ 00:00:00 [facility] Influenza Virus 2015-10-24 Completed Universit y of Vaccine Quad IM 3+ 00:00:00 [facility] Vital Signs Vital Name Observation Time Observation Value Comments Source HEIGHT 2020-11-28 10:05:00 170.2 cm WEIGHT 2020-11-28 10:05:00 92.987 kg Height 2022-02-11 16:23:00 170.18 cm [facility] Weight 2022-02-11 [facility] 2022-02-11 16:23:00 Jerzy veliz Ricardo Height 2022-01-14 14:49:00 170.18 cm [facility] Weight 2022-01-14 14:49:00 [facility] BMI Calculated 2022-01-14 14:49:00 Jerzy veliz Ricardo Height 2021-09-17 14:57:00 170.18 cm [facility] Weight 2021-09-17 14:57:00 [facility] BMI Calculated 2021-09-17 14:57:00 Jerzy Domínguez Procedures Procedure Date / Time Performed Performing Clinician [facility] e Dilation of female urethra 2022-02-11 17:04:00 M [facility]orial Ricardo including suppository and/or instillation; initial Measurement of 2022-02-11 16:52:00 Abram crowell post-voiding residual urine and/or bladder capacity by ultrasound, non-imaging Partial hysterectomy [facility] Teodoro bear Operation on thyroid gland Yuri Silva Tonsillectomy [facility] Encounters Start End Encounter Admission Attending Care Care Encounter Source Date/Time Date/Time Type Type Clinicians Facility Department ID 2021-10-01 Emergency [facility] [id number] Univers 12:50:56 ity of [facility] 2022-09-12 2022-09-12 Maira Lopez NCFREDERICK [id number] Univers 00:00:00 00:00:00 [place] [facility] [id number] it y of [place] [id number] [place] JAY?BLEA [id number] [address] MEDICAL OFFICE [facility] 2022-07-14 2022-07-14 Maira Parry NCFREDERICK [id number] Univers 00:00:00 00:00:00 Adina MULTISPEC [id number] ity of [place] [id number] [place] [id number] [address] [facility] 2022-06-24 2022-06-24 Maira Parry NCFREDERICK [id number] Univers 00:00:00 00:00:00 Adina MULTISPEC [id number] ity [place] [id number] [place] [id number] [address] [facility]ES [facility] 2022-05-20 2022-05-20 Refgrant Lopez NCFERDERICK [id number] Univers 00:00:00 00:00:00 [place] [facility] [id number] it y of [place] [id number] [place] as JAY?BLEA [id number] [address] MEDICAL OFFICE [facility] 2022-05-13 2022-05-13 RefALVAREZ Shepard [id number] Univers 00:00:00 00:00:00 [place] [facility] [id number] it y of [place] [id number] [place] as JAY?BLEA [id number] [address] MEDICAL OFFICE BUILDING 2022-03-31 2022-03-31 Refgrant Lopez NCFREDERICK [id number] Univers 00:00:00 00:00:00 [place] [facility] [id number] it y of [place] [id number] [place] as JAY?BLEA [id number] [address] MEDICAL [facility] 2022-02-18 2022-02-18 [facility] [id number] Univers 00:00:00 00:00:00 Adina HOFFMAN [id number] i ty of [place] [id number] [place] PROF[place] [id number] [place] [facility] [facility] 220 [facility] 2022-02-17 2022-02-17 [facility] 1.2.840.114 [id number] Univers 00:00:00 00:00:00 Reji HOFFMAN 350.1.13.10 i ty of [place] [phone] [address] 2022-02-17 2022-02-17 [facility] 1.2.840.114 [id number] Univers 00:00:00 00:00:00 Adina HOFFMAN 350.1.13.10 i ty of [place] [phone] [address] 2022-02-14 2022-02-14 Outpatient Davon [facility] [id number] Univers 10:00:00 10:00:00 [facility] 2022-02-13 2022-02-13 [facility] Kelly [facility] 1.2.840.114 [id number] Univers 08:56:00 23:59:00 Carl Epstein 350.1.13.10 ity of [facility] 4.2.7.2.686 [place] [phone] [address] 2022-02-13 2022-02-13 Outpatient R KELLY [facility] ACO [id number] Univers 00:00:00 23:59:00 PAIGE [facility] 2022-02-12 2022-02-12 Outpatient Davon LOPEZ [facility] [id number] Univers 10:30:00 11:15:52 REJI [facility] 2022-02-12 2022-02-12 Outpatient Davon LOPEZ [facility] [id number] Univers 10:30:00 10:30:00 WENTONG ity [facility] 2022-02-11 2022-02-12 Outpatient nullFlavo [facility] [id number] Memoria 16:30:00 04:59:59 r Urology 02 l [facility] Verenice nn Time Share 2022-02-12 2022-02-12 Orders Doctor YUNIEL 1.2.840.114 [id number] Univers 00:00:00 00:00:00 Only Unassigned, PRASANNA 350.1.13.10 ity of [facility] 4.2.7.2.686 [place] [phone] [address] 2022-02-11 2022-02-11 [facility] [id number] 11:30:00 23:59:59 Radha Damien 2022-02-11 2022-02-11 Outpatient MHIE IE [id number] Memoria 11:30:00 11:30:00 02 damien Silva 2022-01-14 2022-01-15 Outpatient nullFlavo MG Multi 55 [id number] Memoria 14:45:00 05:59:59 r Specialty 01 l [facility] 2022-01-14 2022-01-14 Outpatient Renae [facility] [id number] 08:45:00 23:59:59 Radha Damien 2022-01-14 2022-01-14 Outpatient MHIE IE [id number] Memoria 08:45:00 08:45:00 01 damien Silva 2021-12-04 2021-12-04 Patient ALVAREZ Lopez 1.2.840.114 [id number] Univers 00:00:00 00:00:00 Secure Ms [employer] [employer] 350.1.13.10 ity of [place] 4.2.7.2.686 [place]es as JAY?BLEA [phone] [address] MEDICAL OFFICE BUILDING 2021-10-24 2021-10-24 Telephone ALVAREZ Lopez 1.2.651.202 [id number] Univers 00:00:00 00:00:00 Luma.io 350.1.13.10 it y of [facility] 4.2.7.2.686 [place] JAY?BLEA [phone] [address] MEDICAL OFFICE [facility] 2021-10-23 2021-10-23 Outpatient R [facility] [id number] Univers 11:00:00 12:03:40 [facility] 2021-10-23 2021-10-23 [facility] 1.2.840.114 [id number] Univers 10:44:00 12:03:40 Visit [facility] 350.1.13.10 it y of [place] 4.2.7.2.686 [place]es [place] JAY?BLEA [phone] [address] MEDICAL OFFICE [facility] 2021-10-23 2021-10-23 Outpatient R [facility] [id number] Univers 09:00:00 09:00:00 [facility] 2021-10-23 2021-10-23 Orders Doctor YUNIEL 1.2.840.114 [id number] Univers 00:00:00 00:00:00 Only Unassigned, PRASANNA 350.1.13.10 ity of [place] [facility] 4.2.7.2.686 [place] [phone] [address] 2021-10-08 2021-10-08 Outpatient R [facility] [id number] Univers 17:20:09 23:59:00 ity of [facility] 2021-10-08 2021-10-08 [facility] 1.2.840.114 [id number] Univers 17:20:09 23:59:00 Encounter Jenni HOFFMAN 350.1.13.10 ity [facility] 4.2.7.2.686 [facility] [phone] [facility] [address] 2021-09-20 2021-09-21 Between nullFlavo [facility] Multi [id number] Memoria 18:07:21 18:07:21 Visit r Specialty 00 l Humza Silva 2021-09-20 2021-09-21 Outpatient [facility] [id number] 13:07:21 13:07:21 00 2021-09-17 2021-09-18 Outpatient nullFlavo [facility] Multi 55 [id number] Memoria 15:20:00 04:59:59 r Specialty 00 l [facility] Miguelito florian Hari 2021-09-17 2021-09-17 Outpatient HUDSON Macdonald [place] [id number] 10:20:00 23:59:59 Radha L 00 2021-09-17 2021-09-17 Outpatient BARBARA JIMENEZ [id number] [facility] 10:20:00 10:20:00 00 l Ricardo 2021-07-27 2021-07-27 Patient Muna [facility] 1.2.840.114 [id number] Univers 00:00:00 00:00:00 Secure Msg Adina Hoffman 350.1.13.10 ity of [place] [phone] Ga dic[address] 2021-07-24 2021-07-24 Outpatient CHELITA MOLINA [facility] SLE [id number] [facility]H 10:01:36 10:01:36 JESS 2021-07-23 2021-07-23 Outpatient [facility] SLE [id number] [facility]H 00:00:00 00:00:00 2021-07-23 2021-07-23 Telephone Lorne [facility] 1.2.477.247 [id number] Univers 00:00:00 00:00:00 Reji Hoffman 350.1.13.10 i ty of [place] [phone] Ga dic[address] 2021-07-16 2021-07-16 Telephone Muna [facility] 1.2.442.578 [id number] Univers 00:00:00 00:00:00 Adina HENDERSONPEC 350.1.13.10 ity of [place].2.[place] [phone] [facility] [address] [facility] 2021-07-03 2021-07-03 Emergency Saturnino Jerry [facility] 1.2.840.114 [id number] Univers 15:25:00 19:31:00 Samanta Hoffman 350.1.13.10 i ty of [place]2.7.2.686 [place] [phone] [facility] [address] 2021-06-29 2021-06-29 Office Prisca [facility] 1.2.840.114 [id number] Univers 09:55:47 10:56:51 Visit Mateo Hoffman 350.1.13.10 i ty of [place] 4.2.[place].2.[place] [phone] Ga dical nal 085 [facility] 2021-06-29 2021-06-29 Outpatient R MATEO GUTIERREZ [facility] 10 [id number] Univers 10:00:00 10:00:00 MATEO GUTIERREZ i ty of [facility] 2021-06-29 2021-06-29 Telephone Prisca [facility] 1.2.250.496 [id number] Univers 00:00:00 00:00:00 Mateo Hoffman 350.1.13.10 i ty of [place] [phone] Ga dical nal 085 [facility] 2021-06-28 2021-06-28 [facility] 1.2.840.114 [id number] Univers 00:00:00 00:00:00 Reji Hoffman 350.1.13.10 i ty of [place] [phone] Ga dical nal 220 [facility] 2021-06-20 2021-06-20 Patient Muna [facility] 1.2.840.114 [id number] Univers 00:00:00 00:00:00 Secure Msg Adina Hoffman 350.1.13.10 ity of [place]2.[place].2.[place] [phone] Ga dical nal 220 [facility] 2021-06-18 2021-06-18 [facility]phone [facility] 1.2.901.357 [id number] Univers 00:00:00 00:00:00 Adina Hoffman 350.1.13.10 i ty of [place] [phone] Ga dical nal 220 [facility] 2021-06-14 2021-06-14 Orders Doctor YUNIEL 1.2.840.114 [id number] Univers 00:00:00 00:00:00 Only Unassigned, PRASANNA 350.1.13.10 ity of [place] [facility] 4.2.7.2.686 [place] [phone] [address] 2021-06-12 2021-06-12 Nude Model Aniceto Gallegos Lab Main [facility] 1.2.8 40.114 [id number] Univers 10:18:07 10:33:07 Visit Adina Parry 350.1.13.10 ity of [place].2.[place] [phone] Ga dical nal 353 [facility] 2021-06-12 2021-06-12 Office Adina Parry [facility] 1.2.840.114 [id number] Univers 08:58:13 09:57:00 Visit Reji Lopez 350.1.13.10 ity of [place] 4.2.7.2.[place] [phone] Ga dical nal 220 [facility] 2021-06-12 2021-06-12 Outpatient R LORNE [facility] [id number] Univers 09:00:00 09:00:00 WENTONG ity of [facility] 2021-06-12 2021-06-12 Patient Muna [facility] 1.2.840.114 [id number] Univers 00:00:00 00:00:00 Secure Msg Adina Hoffman 350.1.13.10 ity of [place] 4.2.[place].2.[place] [phone] Ga dical nal 220 [facility] 2021-06-12 2021-06-12 Orders Doctor YUNIEL 1.2.840.114 [id number] Univers 00:00:00 00:00:00 Only Unassigned, PRASANNA 350.1.13.10 ity of [place] [facility] 4.2.7.2.686 [place] [phone] [address] 2021-06-05 2021-06-05 Hospital Lorne [facility] 1.2.840.114 [id number] Univers 08:21:47 23:59:00 Encounter Reji Hoffman 350.1.13.10 ity of [place] 4.2.7.2.686 [place] [phone] [facility] [address] 2021-06-05 2021-06-05 Nude Model El, Aniceto Lab Main [facility] 1.2.8 40.114 [id number] Univers 08:20:54 08:35:54 Visit Reji Lopez 350.1.13.10 ity of [place] 4.2.7.2.[place] [phone] Ga dical nal 353 [facility] 2021-06-05 2021-06-05 Outpatient R [facility] [id number] Univers 08:00:00 08:00:00 ity of [facility] 2021-06-05 2021-06-05 Orders Doctor YUNIEL 1.2.840.114 [id number] Univers 00:00:00 00:00:00 Only Unassigned, PRASANNA 350.1.13.10 ity of [place] [facility] 4.2.7.2.686 [place] [phone] [facility] [address] 2021-05-27 2021-05-27 Refill Lorne [facility] 1.2.840.114 [id number] Univers 00:00:00 00:00:00 Reji Hoffman 350.1.13.10 i ty of [place] 4[place]2.[place].2.[place] [phone] Ga dical nal 220 [facility] 2021-05-21 2021-05-21 Orders Doctor YUNIEL 1.2.840.114 [id number] Univers 00:00:00 00:00:00 Only Unassigned, PRASANNA 350.1.13.10 ity of [place] [facility] 4.2.7.2.686 [place] [phone] [facility] [address] 2021-04-08 2021-04-08 Refill Lorne [facility] 1.2.840.114 [id number] Univers 00:00:00 00:00:00 Reji Hoffman 350.1.13.10 i ty of [place] 4.2.[place].2.[place] [phone] Ga dical nal 220 [facility] 2021-03-18 2021-03-18 [facility] 1.2.840.114 [id number] Univers 00:00:00 00:00:00 Reji Hoffman 350.1.13.10 i ty of [place] 4[place]2.[place].2.[place] [phone] Ga dical nal 220 [facility] 2021-02-17 2021-02-17 [facility] 1.2.840.114 [id number] Univers 00:00:00 00:00:00 Jaiong Diandra 350.1.13.10 i ty of [place] 4.2.7.2.[place] [phone] [facility] 220 [facility] 2021-02-15 2021-02-15 Patient Ladarius [facility] 1.2.840.114 [id number] Univers 00:00:00 00:00:00 Outreach Donnell PRIMARY 350.1.13.10 i ty of [facility] 4.2.7.2.686 [place] [phone] [address] 2021-02-06 2021-02-06 [facility] 1.2.840.114 [id number] Univers 00:00:00 00:00:00 Reji Hoffman 350.1.13.10 i ty of [place] 4.2.7.2.686 [place] [phone] Ga dicsaint alphonsus eagle 220 [facility] 2021-01-10 2021-01-10 Office Lorne [facility] 1.2.840.114 [id number] Univers 15:44:09 17:14:48 Visit Reji Hoffman 350.1.13.10 i ty of [place] 4.2.7.2.686 [place] [phone] Ga dicsaint alphonsus eagle 220 [facility] 2021-01-10 2021-01-10 Outpatient R LORNE [facility] [id number] Univers 16:00:00 16:00:00 REJI marie [facility] 2021-01-05 2021-01-05 [facility] 1.2.840.114 [id number] Univers 00:00:00 00:00:00 Wentong [place] 350.1.13.10 i ty of [place] 4.2.7.2.686 [place] [phone] Ga dical nal [address] 2020-12-28 2020-12-28 Hospital Radiology [facility] 1.2.840.114 [id number] Univers 07:54:16 23:59:00 Encounter [place] 350.1.13.10 ity of [place] 4.2.7.2.686 [place] [phone] [facility] [address] 2020-12-28 2020-12-28 Outpatient R RADIOLOGY [facility] [id number] Univers 08:00:00 08:00:00 ity of [facility] 2020-12-15 2020-12-15 Outpatient R RADIOLOGY [facility] [id number] Univers 08:00:00 08:00:00 ity of [facility] 2020-11-28 2020-11-28 Outpatient EL [facility] [id number] [facility] 00:00:00 00:00:00 2020-11-28 2020-11-28 Outpatient SLEH [facility] [id number] [facility] 00:00:00 00:00:00 2020-11-28 2020-11-28 Refill Lorne [facility] 1.2.840.114 [id number] Univers 00:00:00 00:00:00 Jaiong MULTISPEC 350.1.13.10 ity of [facility] 4.2.7.2.[place] [phone] [facility] [address] 2020-11-28 2020-11-28 Telephone Lorne [facility] 1.2.705.871 [id number] Univers 00:00:00 00:00:00 Jaiong [place] 350.1.13.10 i ty of [place] 4.2.7.2.[place] [phone] Ga dical nal [address] [facility] [address] 2020-10-05 2020-10-05 Orders YUNIEL Lopez 1.2.840.114 [id number] Univers 00:00:00 00:00:00 Only Wentong PRASANNA 350.1.13.10 it y of HOSPITAL 4.2.7.2.686 [place] [phone] [address] 2020-09-22 2020-09-22 Telephone [facility] 1.2.292.455 [id number] Univers 00:00:00 00:00:00 Jaiong [place] 350.1.13.10 i ty of [place] 4.2.7.2.[place] [phone] [address] 2020-09-19 2020-09-19 Office [facility] 1.2.840.114 [id number] Univers 15:49:22 16:53:55 Visit Reji Hoffman 350.1.13.10 i ty of [place] 4.2.7.2.686 [place] [phone] [address] 2020-09-19 2020-09-19 Outpatient [facility] [id number] Univers 16:00:00 16:00:00 WENTONG ity of [facility] 2020-09-19 2020-09-19 Orders Doctor YUNIEL 1.2.840.114 [id number] Univers 00:00:00 00:00:00 Only Unassigned, PRASANNA 350.1.13.10 ity of [place] [facility] 4.2.7.2.686 [place] [phone] [address] 2020-08-18 2020-08-18 Refill [facility] 1.2.840.114 [id number] Univers 00:00:00 00:00:00 Jaiong [place] 350.1.13.10 i ty of [place] 4.2.7.2.[place] [phone] [address] 2020-08-18 2020-08-18 [facility]ill [facility] 1.2.840.114 [id number] 68 00:00:00 00:00:00 Jaiong [place] 350.1.13.10 [place] 4.2.7.2.686 Professio [phone] [address] 2020-07-09 2020-07-09 [facility] 1.2.840.114 [id number] Univers 00:00:00 00:00:00 Jaiong [place] 350.1.13.10 i ty of [place] 4.2.7.2.[place] [phone] [address] 2020-07-09 2020-07-09 Refill Lopez, [facility] 1.2.840.114 [id number] 24 00:00:00 00:00:00 Wentong [place] 350.1.13.10 [place] 4.2.7.2.686 Professio [phone] [address] 2020-07-04 2020-07-04 Telephone Lopez, [facility] 1.2.141.479 [id number] [facility] 00:00:00 00:00:00 Wentong [place] 350.1.13.10 i ty of [place] 4.2.7.2.686 [place] [phone] [address] 2020-07-04 2020-07-04 Telephone Lopez, [facility] 1.2.741.041 [id number] 00:00:00 00:00:00 Wentong [place] 350.1.13.10 [place] 4.2.7.2.686 Professio [phone] [address] 2020-06-30 2020-06-30 Telephone Lopez, [facility] 1.2.188.726 [id number] [facility] 00:00:00 00:00:00 Wentong [place] 350.1.13.10 i ty of [place] 4.2.7.2.686 [place] [phone] [address] 2020-06-30 2020-06-30 Telephone Lopez, [facility] 1.2.187.737 [id number] 00:00:00 00:00:00 Wentong [place] 350.1.13.10 [place] 4.2.7.2.686 Professio [phone] [address] 2020-06-27 2020-06-27 Orders Doctor YUNIEL 1.2.840.114 [id number] 00:00:00 00:00:00 Only Unassigned, PRASANNA 350.1.13.10 ity of [place] [facility] 4.2.7.2.686 [place] [phone] [address] 2020-06-27 2020-06-27 Telephone Lopez, [facility] 1.2.459.232 [id number] Univers 00:00:00 00:00:00 Wentong [place] 350.1.13.10 i ty of [place] 4.2.7.2.686 [place] [phone] Me dical [address] 2020-06-27 2020-06-27 Telephone [facility] 1.2.114.664 [id number] 00:00:00 00:00:00 Wentong [place] 350.1.13.10 [place] 4.2.7.2.686 Professio [phone] [address] 2020-06-27 2020-06-27 Orders Doctor YUNIEL 1.2.840.114 [id number] 00:00:00 00:00:00 Only Unassigned, PRASANNA 350.1.13.10 [place] [facility] [phone] 009 2020-06-19 2020-06-19 Patient [facility] 1.2.840.114 [id number] Univers 00:00:00 00:00:00 Secure Msg Reji [place] 350.1.13.10 ity of [place] 4.2.7.2.686 [place] [phone] Ga dic[address] 2020-06-19 2020-06-19 Patient [facility] 1.2.840.114 [id number] 15 00:00:00 00:00:00 Secure Msg Jaiong [place] 350.1.13.10 [place] 4.2.7.2.686 Professio [phone] [address] 2020-06-01 2020-06-01 Outpatient EL [facility] SLEH [id number] [facility] 00:00:00 00:00:00 2020-05-24 2020-05-24 [facility]patient [facility] [id number] Univers 08:32:17 23:59:00 WENTONG ity of [facility] 2020-05-24 2020-05-24 Hospital [facility] 1.2.840.114 [id number] Univers 08:32:00 23:59:00 Encounter Wentong [place] 350.1.13.10 ity of [place] 4.2.7.2.[place] [phone] [facility] [address] 2020-05-18 2020-05-18 Telephone [facility] 1.2.057.518 [id number] Univers 00:00:00 00:00:00 Reji Hoffman 350.1.13.10 i ty of [place] 4.2.7.2.[place] [phone] Ga dicsaint [facility] 220 [facility] 2020-05-16 2020-05-16 Nude Model El, Aniceto Lab Main [facility] 1.2.8 40.114 [id number] Univers 11:50:04 12:05:04 Visit Reji Lopez 350.1.13.10 ity of [place] 4.2.7.2.686 [place] [phone] [facility] 353 [facility] 2020-05-16 2020-05-16 Office [facility] 1.2.840.114 [id number] Univers 10:27:53 11:24:39 Visit Reji Hoffman 350.1.13.10 i ty of [place] 4.2.7.2.686 [place] [phone] [facility] 220 [facility] 2020-05-16 2020-05-16 Outpatient R LORNE [facility] [id number] Univers 10:30:00 10:30:00 JAIONG ity of [facility] 2020-05-16 2020-05-16 Orders Doctor YUNIEL 1.2.840.114 [id number] Univers 00:00:00 00:00:00 Only Unassigned, PRASANNA 350.1.13.10 ity of [place] [facility] 4.2.7.2.686 [place] [phone] [facility] [address] 2020-04-13 2020-04-13 [facility] 1.2.840.114 [id number] Univers 00:00:00 00:00:00 Reji Hoffman 350.1.13.10 i ty of [place] 4.2.7.2.[place] [phone] Ga dicsaint alphons[facility] eagle 220 [facility] 2020-04-12 2020-04-12 Refill Lorne [facility] 1.2.840.114 [id number] Univers 00:00:00 00:00:00 Jaipadma [place] 350.1.13.10 i ty of [place] 4.2.7.2.[place] [phone] [address] 2020-04-10 2020-04-10 [facility] 1.2.840.114 [id number] Univers 00:00:00 00:00:00 Jaipadma [place] 350.1.13.10 i ty of [place] 4.2.7.2.[place] [phone] [address] 2020-01-11 2020-01-11 Outpatient [facility] [id number] Univers 16:00:00 17:02:16 REJI ity [facility] 2020-01-11 2020-01-11 Office [facility] 1.2.840.114 [id number] Univers 15:44:37 17:02:16 Visit Reji Hoffman 350.1.13.10 i ty of [place] 4.2.7.2.686 [place] [phone] [address] 2019-12-23 2019-12-23 [facility] 1.2.840.114 [id number] Univers 00:00:00 00:00:00 Jaipadma Diandra 350.1.13.10 i ty of [place] 4.2.7.2.[place] [phone] [address] 2019-08-02 2019-08-02 Refill Betty [facility] 1.2.927.462 [id number] Univers 00:00:00 00:00:00 Lester Hoffman 350.1.13.10 i ty of [place] 4.2.7.2.[place] [phone] [address] 2019-07-26 2019-07-26 Refgrant [facility] 1.2.840.114 [id number] Univers 00:00:00 00:00:00 Jaipadma Diandra 350.1.13.10 i ty of [place] 4.2.7.2.[place] [phone] Me dical nal [address] Results Test Description Test Time Test Comments Results Result Comments Source URINE AND STOOL 2022-02-11 16:57:00 Test Item Value Reference Range Interpretation Comme nts POC UA Color (test code = POC UA Color) Yellow *NA*(02/11/22 11:57 A M) [facility] [id number] 16:57:00 Test Item Value Reference Range Interpretation Comments POC UA Turbidity (test Clear *NA*(02/11/22 code = POC UA Turbidity) 11:57 AM) [facility] [id number] 16:57:00 Test Item Value Reference Range Interpretation Comments POC UA SG (test code = *NA*(02/11/22 11:57 AM) POC UA SG) [facility] [id number] 16:57:00 Test Item Value Reference Range Interpretation Comments POC UA pH (test code = POC UA pH) 6.0 1 5.0-8.0 [facility] [id number] 16:57:00 Test Item Value Reference Range Interpretation Comments POC UA Prot (test code = POC Negative mg/dL UA Prot) [facility] [id number] 16:57:00 Test Item Value Reference Range Interpretation Comments POC UA Glu (test code = POC UA Negative mg/dL Glu) [facility] [id number] 16:57:00 Test Item Value Reference Range Interpretation Comments POC UA Ket (test code = POC UA Negative mg/dL Ket) [facility] [id number] 16:57:00 Test Item Value Reference Range Interpretation Comments POC UA Bili (test Negative *NA*(02/11/22 code = POC UA Bili) 11:57 AM) [facility] [id number] 16:57:00 Test Item Value Reference Range Interpretation Comments POC UA Bld (test code Moderate *ABN*(02/11/22 = POC UA Bld) 11:57 AM) [facility] [id number] 16:57:00 Test Item Value Reference Range Interpretation Comments POC UA Uro (test code = POC UA Uro) 0.2 0.1-1.0 [facility] [id number] 16:57:00 Test Item Value Reference Range Interpretation Comments POC UA Nit (test code Negative *NA*(02/11/22 = POC UA Nit) 11:57 AM) [facility] [id number] 16:57:00 Test Item Value Reference Range Interpretation Comments POC UA LeukEst (test Large *ABN*(02/11/22 code = POC UA LeukEst) 11:57 AM) [facility] [id number] 19:11:00 Test Item Value Reference Range Interpretation Comments Result 2 (Urine Culture) See Result Comment (test code = Result 2 (Urine Culture)) [facility] [id number] 16:47:00 Test Item Value Reference Range Interpretation Comments TOTAL PROTEIN (BEAKER) (test code = 7.0 gm/dL 6.0-8.3 770) ALBUMIN (BEAKER) (test code = 1145) 4.4 g/dL 3.5-5.0 BILIRUBIN TOTAL (BEAKER) (test code 0.3 mg/dL 0.2-1.2 = 377) BILIRUBIN DIRECT (BEAKER) (test 0.2 mg/dL 0.1-0.5 code = 706) ALKALINE PHOSPHATASE (BEAKER) (test 65 U/L 40-150 code = 346) AST (SGOT) (BEAKER) (test code = 55 U/L 5-34 H 353) ALT (SGPT) (BEAKER) (test code = 41 U/L 6-55 347) BASIC METABOLIC [id number] 16:47:00 Test Item Value Reference Range Interpretation [...] PATIEN TS. CBC W/PLT COUNT & AUTO [id number] 16:36:00 Test Item Value Reference Range Interpretation [...] (test code = 2801) HEPATITIS A ANTIBODY, [id number] 13:32:00 Test Item Value Reference Range Interpretation Comments HEPATITIS A IGG ANTIBODY (BEAKER) Reactive Nonreactive A (test code = 2797) HEPATITIS B SURFACE [id number] 13:30:00 Test Item Value Reference Range Interpretation Comments HEPATITIS B SURFACE ANTIBODY 22.0 mIU/mL <8.0 H (BEAKER) (test code = 647) HEPATIC FUNCTION [id number] 13:14:00 Test Item Value Reference Range Interpretation [...] = 49 U/L 6-55 347) BASIC METABOLIC [id number] 13:14:00 Test Item Value Reference Range Interpretation [...] PATIEN TS. CBC W/PLT COUNT & AUTO [id number] 12:58:00 Test Item Value Reference Range Interpretation [...] (BEAKER) (test code = 2801) HEPATIC FUNCTION [id number] 14:47:00 Test Item Value Reference Range Interpretation [...] = 27 U/L 6-55 347) BASIC METABOLIC [id number] 14:47:00 Test Item Value Reference Range Interpretation [...] NOT APPLICABLE FOR DIALYSIS PATIEN TS. C-REACTIVE [id number] 14:47:00 Test Item Value Reference Range Interpretation Comments C-REACTIVE PROTEIN (BEAKER) (test 0.25 mg/dL 0.00-0.50 code = 676) CBC W/PLT COUNT & AUTO [id number] 14:23:00 Test Item Value Reference Range Interpretation [...] (BEAKER) (test code = 2801) HEPATIC FUNCTION [id number] 11:43:00 Test Item Value Reference Range Interpretation [...] = 34 U/L 6-55 347) BASIC METABOLIC [id number] 11:43:00 Test Item Value Reference Range Interpretation [...] PATIEN TS. CBC W/PLT COUNT & AUTO [id number] 10:40:00 Test Item Value Reference Range Interpretation [...] (BEAKER) (test code = 2801) HEPATIC FUNCTION [id number] 16:54:00 Test Item Value Reference Range Interpretation [...] = 36 U/L 6-55 347) BASIC METABOLIC [id number] 16:54:00 Test Item Value Reference Range Interpretation [...] PATIEN TS. CBC W/PLT COUNT & AUTO [id number] 16:27:00 Test Item Value Reference Range Interpretation [...] code = 2801) ALPHA FETOPROTEIN (AFP), TUMOR [id number] 16:19:00 Test Item Value Reference Range Interpretation Comments ALPHA-FETOPROTEIN (BEAKER) (test 4.6 ng/mL <10.0 code = 1094) Effective 10/18/2014: Reference Range ChangeNew: <10.0 Previous: 0.0-8.0BASIC METABOLIC [id number] 15:56:00 Test Item Value Reference Range Interpretation [...] NOT APPLICABLE FOR DIALYSIS PATIEN TS. LIPID [id number] 15:56:00 Test Item Value Reference Range Interpretation Comments TRIGLYCERIDES (BEAKER) (test code = 411 mg/dL 540) CHOLESTEROL (BEAKER) (test code = 201 mg/dL 631) HDL CHOLESTEROL (BEAKER) (test code 44 mg/dL = 976) Calculated LDL not valid if triglyceride >400 mg/dLTriglyceride Reference Range: Low Risk <150Borderline 150-199 High Risk 200-499 Very High Risk >=500Cholesterol Reference Range: Low Risk <200 Borderline 200-239 High Risk >240HDL Cholesterol Reference Range: Low Risk >=60 High Risk <40LDL Cholesterol Reference Range: Optimal <100 Near Optimal 100-129 Borderline 130-159 [id number] Very High >=190HEPATIC FUNCTION PANEL 2017-06-02 15:56:00 Test Item Value Reference Range Interpretation [...] = 364) CBC W/PLT COUNT & AUTO [id number] 15:55:00 Test Item Value Reference Range Interpretation [...] L 0.00-0.20 (test code = 417) 0.00PROTHROMBIN [id number] 15:42:00 Test Item Value Reference Range Interpretation Comments PROTIME (BEAKER) (test code = 13.1 seconds 11.7-14.7 759) INR (BEAKER) (test code = 370) 1.0 <=5.9 RECOMMENDED COUMADIN/WARFARIN INR THERAPY RANGESSTANDARD DOSE: 2.0 - 3.0 Includes: PROPHYLAXIS for venous thrombosis, systemic embolization; TREATMENT for venous thrombosis and/or pulmonary embolus.HIGH RISK: Target INR is 2.5-3.5 for patients with mechanical heart valves.
--- NOTE | 2022-09-12 10:32 | RAD REPORT ---
EXAM DESCRIPTION: [facility] Single View09/12/2022 10:23 am CLINICAL HISTORY: Chest pain COMPARISON: 2014 FINDINGS: Area of scarring within the left lung base. The lungs appear clear of acute infiltrate. The heart is normal size IMPRESSION: No acute abnormalities displayed
[2022-09-12 10:46] LABS: Protime INR 1.25
[2022-09-12 10:51] LABS: Urine Blood 1+ (Negative); Urine Glucose 2+ (Negative); Urine Protein 3+ (Negative); Urine Specific Gravity >=1.030 (1.005-1.030); Urine pH 5.5 (5.0-7.0)
[2022-09-12 10:52] LABS: Absolute Lymphocytes (CBC) 0.5 K/uL (0.7-4.9); Hematocrit 37.6 % (36.0-45.0); Lymphocytes % 2.7 % (15.3-44.8); MCV 89.5 fL (80-100); MPV 6.8 fL (7.6-11.3)
[2022-09-12] MEDS ORDERED: NA CHLORIDE 0.9% 500 ML ONE (10:56)
[2022-09-12] MEDS ORDERED: CEFTRIAXONE 1000 MG/VIAL ONE (10:56)
[2022-09-12 11:10] LABS: SARS-CoV-2 Antigen Rapid Res Negative (Negative)
[2022-09-12 11:29] LABS: Albumin 3.4 g/dL (3.4-5.0); Bilirubin Direct 0.3 mg/dL (0-0.2); Bilirubin Total 0.8 mg/dL (0.2-1.0); Magnesium 1.5 mg/dL (1.8-2.4); Potassium 4.1 mmol/L (3.5-5.1); Protein, Total 7.4 g/dL (6.4-8.2); Thyroid Stimulating Hormone 0.515 uIU/mL (0.360-3.740)
[2022-09-12 11:29] LABS: Urine Bacteria <20 /HPF (<20); Urine Mucus Slight /HPF (None Seen); Urine WBC Clump Few /HPF (None Seen)
[2022-09-12] MEDS ORDERED: NA CHLORIDE 0.9% 2,000 ML ONE (11:44)
[2022-09-12] MEDS ORDERED: MAGNESIUM SULFATE 1 gm IVPB 1 GM/100 ML BAG IV ONE (11:45)
[2022-09-12] MEDS ORDERED: ACETAMINOPHEN 500 MG TAB ONE (12:49)
[2022-09-12] MEDS ORDERED: FENTANYL CITR 100 MCG/2 ML ONE ×2 (13:53→21:51)
--- NOTE | 2022-09-12 16:30 | ER ---
Nurse's Notes [facility] Name: Cecilia Ragland Age: 46 yrs Sex: Female : 1975 Arrival Date: 09/12/2022 Time: 09:45 Bed 6 Private MD: Diagnosis: UTI/ Urinary tract infection, site not specified;Sepsis, unspecified organism;Impending thyroid storm Presentation: 09/12 09:59 Chief complaint: Patient states: midsternal chest pain, my watch told me my heart rate iw was 130. Coronavirus screen: At this time, the client does not indicate any symptoms associated with coronavirus-19. Ebola Screen: Patient negative for fever greater than or equal to 101.5 degrees Fahrenheit, and additional compatible Ebola Virus Disease symptoms Patient denies exposure to infectious person. Patient denies travel to an Ebola-affected area in the 21 days before illness onset. No symptoms or risks identified at this time. Initial Sepsis Screen: Does the patient meet any 2 criteria? No. Patient's initial sepsis screen is negative. Does the patient have a suspected source of infection? No. Patient's initial sepsis screen is negative. Risk Assessment: Do you want to hurt yourself or someone else? Patient reports no desire to harm self or others. Onset of symptoms was September 12, 2022. 09:59 Method Of Arrival: Wheelchair iw 09:59 Acuity: HAI 3 iw Historical: - Allergies: 10:00 Benadryl; iw 10:00 Flonase; iw - PMHx: 10:00 Arthritis; Diabetes - IDDM; Hypertension; iw - Immunization history:: Adult Immunizations up to date. - Social history:: Smoking status: Patient denies any tobacco usage or history of. Screenin:24 Abuse screen: Denies threats or abuse. Nutritional screening: No deficits noted. ll1 Tuberculosis screening: No symptoms or risk factors identified. Fall Risk IV access (20 points). Total Sommers Fall Scale indicates No Risk (0-24 pts). Assessment: 10:22 General: Appears in no apparent distress. Behavior is calm, cooperative, appropriate ll1 for age. Pain: Complains of pain in chest. Cardiovascular: Reports chest pain. 11:12 : Reports urgency, urinary frequency. ll1 12:03 Reassessment: No changes from previously documented assessment. Patient and/or family ll1 updated on plan of care and expected duration. Pain level reassessed. 12:57 Reassessment: No changes from previously documented assessment. Patient and/or family ll1 updated on plan of care and expected duration. Pain level reassessed. Patient is alert, oriented x 3, equal unlabored respirations, skin warm/dry/pink. 14:00 Reassessment: No changes from previously documented assessment. gait steady to restroom.ll1 15:05 Reassessment: No changes from previously documented assessment. Patient and/or family ll1 updated on plan of care and expected duration. Pain level reassessed. Patient is alert, oriented x 3, equal unlabored respirations, skin warm/dry/pink. 16:00 Reassessment: No changes from previously documented assessment. Patient and/or family ll1 updated on plan of care and expected duration. Pain level reassessed. 17:00 Reassessment: No changes from previously documented assessment. Patient and/or family ll1 updated on plan of care and expected duration. Pain level reassessed. 18:00 Reassessment: No changes from previously documented assessment. Patient and/or family ll1 updated on plan of care and expected duration. Pain level reassessed. Patient is alert, oriented x 3, equal unlabored respirations, skin warm/dry/pink. 18:51 Reassessment: No changes from previously documented assessment. Patient and/or family ll1 updated on plan of care and expected duration. Pain level reassessed. Patient is alert, oriented x 3, equal unlabored respirations, skin warm/dry/pink. Vital Signs: 09:50 BP 153 / 62; Pulse 122; ll1 10:00 BP 125 / 55; Pulse 116; ll1 11:12 BP 164 / 62; Pulse 123; Resp 21; Temp 98.4; Pulse Ox 97% ; ll1 12:02 BP 108 / 62; Pulse 126; Resp 21; ll1 12:06 BP 150 / 77; Pulse 125; ll1 12:34 Weight 99.79 kg; Height 5 ft. 7 in. (170.18 cm) (R); snw 12:57 BP 144 / 69; Pulse 125; Temp 99.7; ll1 14:14 BP 128 / 68; Pulse 121; Resp 22; Pulse Ox 96% on R/A; ll1 15:08 BP 123 / 64; Pulse 115; ll1 16:17 BP 116 / 61; Pulse 114; Resp 20; Pulse Ox 97% ; ll1 17:15 BP 125 / 64; Pulse 115; Resp 20; ll1 18:13 BP 135 / 66; Pulse 111; Resp 20; Pulse Ox 96% on R/A; ll1 18:50 BP 134 / 66; Pulse 126; Resp 20; Temp 98.5; Pulse Ox 97% on R/A; ll1 12:34 Body Mass Index 34.46 (99.79 kg, 170.18 cm) snw ED Course: 09:45 Patient arrived in ED. rg4 09:47 Liz Hirsch FNP-C is PHCP. snw 09:47 Himanshu Arcos MD is Attending Physician. snw 09:49 Arm band placed on Patient placed in an exam room, on a stretcher. ll1 10:00 Triage completed. iw 10:22 Nigel Ocampo, BALDO is Primary Nurse. ll1 10:24 Patient has correct armband on for positive identification. Bed in low position. Call ll1 light in reach. Side rails up X 1. Client placed on continuous cardiac and pulse oximetry monitoring. NIBP monitoring applied. pvc monitor on. 10:25 Patient maintains SpO2 saturation greater than 95% on room air. ll1 10:38 Inserted saline lock: 22 gauge in left antecubital area, using aseptic technique. Blood jd3 collected. 11:59 Blood Culture Adult (2) Sent. ll1 11:59 Lactate Sent. ll1 12:30 Transfer initiated with [facility] transfer center. em1 13:00 Inserted saline lock: 20 gauge in right antecubital area, using aseptic technique. ll1 Blood collected. 14:27 Transfer declined by [facility] Administration. em1 14:48 transfer initiated with [facility]; call terminated after 47 em1 minutes on hold. 15:35 Transfer initiated with [facility] by EM. wm 18:29 Pt accepted for transfer by Dr. Patel Montiel. wm 21:54 PHCP role handed off by Liz Hirsch FNP-C tw5 21:54 Primary Nurse role handed off by Nigel Ocampo, BALDO tw5 22:05 No provider procedures requiring assistance completed. Patient transferred, IV remains lg3 in place. intact, No redness/swelling at site. Administered Medications: 11:58 Drug: NS 0.9% 500 ml Volume: 500 ml; Route: IV; Rate: 1 bolus; Site: left antecubital; ll1 13:05 Follow up: Response: No adverse reaction; IV Status: Completed infusion; IV Intake: ll1 500ml 11:58 Drug: Magnesium Sulfate 1 grams Route: IVPB; Infused Over: 1 hrs; Site: left ll1 antecubital; 14:13 Follow up: Response: No adverse reaction; IV Status: Completed infusion; IV Intake: ll1 100ml 11:59 Drug: Rocephin (cefTRIAXone) 1 grams Route: IV; Rate: calculated rate; Site: left ll1 antecubital; 13:05 Follow up: Response: No adverse reaction; IV Status: Completed infusion; IV Intake: [id number] 12:56 Drug: Tylenol 1000 mg Route: PO; ll1 14:14 Follow up: Response: No adverse reaction 1 13:04 Drug: NS 0.9% 2000 ml Route: IV; Rate: 1000 ml; Site: right antecubital; 1 14:14 Follow up: Response: No adverse reaction; IV Status: Completed infusion; IV Intake: ll1 2000ml 14:02 Drug: fentaNYL (PF) 25 mcg {Note: rass 0, pain 6/10 CAMP.} Route: IVP; Site: right ll1 antecubital; 17:44 Follow up: Response: No adverse reaction; Pain is decreased; RASS: Alert and Calm (0) ll1 17:43 Drug: fentaNYL (PF) 25 mcg {Note: rass 0, pain 6/10.} Route: IVP; Site: right ll1 antecubital; 22:04 Drug: fentaNYL (PF) 50 mcg Route: IVP; Site: left antecubital; lg3 22:04 Follow up: Response: No adverse reaction; Marked relief of symptoms; Pain is decreased lg3 Medication: 12:07 VIS not applicable for this client. ll1 Intake: 13:05 IV: 20ml; Total: 20ml. ll1 13:05 IV: 500ml; Total: 520ml. ll1 14:13 IV: 100ml; Total: 620ml. ll1 14:14 IV: 2000ml; Total: 2620ml. ll1 Outcome: 16:29 ER care complete, transfer ordered by MD. snw 21:52 Patient left the ED. tw5 22:05 Transferred by ground EMS Transfer form completed. lg3 22:05 Condition: stable 22:05 Instructed on the need for transfer. 22:05 Patient left the ED. lg3 Signatures: Liz Hirsch, TABLEAU REPORT DEVELOPER-C TABLEAU REPORT DEVELOPER-Csnw Aura Rivera, RN RN mary Montoya, Marcelino em1 Ann Dhaliwal rg4 Colt Amor RN RN jd3 Carolina Abbott RN BALDO lg3 Nigel Ocampo RN RN ll1 Shelley Garcia Tiffany tw5 Corrections: (The following items were deleted from the chart) 11:12 10:22 General: Appears in no apparent distress. Behavior is calm, cooperative, ll1 appropriate for age, ll1 11:17 11:12 BP 164 / 62; Pulse 123bpm; Resp 21bpm; Temp 98.4F; ll1 ll1
--- NOTE | 2022-09-12 16:30 | EDPHYS ---
Physician Documentation [facility] Name: Cecilia Ragland Age: 46 yrs Sex: Female : 1975 Arrival Date: 09/12/2022 Time: 09:45 Bed 6 Private MD: ED Physician Himanshu Arcos HPI: 09/12 10:23 This 46 yrs old Female presents to ER via Wheelchair with complaints of Chest Pain. snw 10:23 The patient or guardian reports chest pain that is located primarily in the substernal snw area. Onset: gradually, last night. The pain does not radiate. Associated signs and symptoms: Pertinent positives: lightheadedness, palpitations, anorexia. The chest pain is described as a heaviness. Duration: The patient or guardian reports multiple episodes. Modifying factors: The symptoms are alleviated by nothing. the symptoms are aggravated by nothing. Severity of pain: At its worst the pain was moderate. The patient has experienced a previous episode. The patient has been recently seen by a physician: with different complaint(s). Historical: - Allergies: 10:00 Benadryl; iw 10:00 Flonase; iw - PMHx: 10:00 Arthritis; Diabetes - IDDM; Hypertension; iw - Immunization history:: Adult Immunizations up to date. - Social history:: Smoking status: Patient denies any tobacco usage or history of. ROS: 10:24 Eyes: Negative for injury, pain, redness, and discharge, ENT: Negative for injury, snw pain, and discharge, Neck: Negative for injury, pain, and swelling. 10:24 Respiratory: Negative for shortness of breath, cough, wheezing, and pleuritic chest pain, Abdomen/GI: Negative for abdominal pain, nausea, vomiting, diarrhea, and constipation, Back: Negative for injury and pain, : Negative for injury, bleeding, discharge, and swelling, MS/Extremity: Negative for injury and deformity, Skin: Negative for injury, rash, and discoloration, Neuro: Negative for headache, weakness, numbness, tingling, and seizure, Psych: Negative for depression, anxiety, suicide ideation, homicidal ideation, and hallucinations. 10:24 Constitutional: Positive for malaise. 10:24 Cardiovascular: Positive for chest pain, of the chest, palpitations. Exam: 10:23 Constitutional: This is a well developed, well nourished patient who is awake, alert, snw and in no acute distress. Head/Face: Normocephalic, atraumatic. Eyes: Pupils equal round and reactive to light, extra-ocular motions intact. Lids and lashes normal. Conjunctiva and sclera are non-icteric and not injected. Cornea within normal limits. Periorbital areas with no swelling, redness, or edema. ENT: Nares patent. No nasal discharge, no septal abnormalities noted. Tympanic membranes are normal and external auditory canals are clear. Oropharynx with no redness, swelling, or masses, exudates, or evidence of obstruction, uvula midline. Mucous membranes moist. Neck: Trachea midline, no thyromegaly or masses palpated, and no cervical lymphadenopathy. Supple, full range of motion without nuchal rigidity, or vertebral point tenderness. No Meningismus. Chest/axilla: Normal chest wall appearance and motion. Nontender with no deformity. No lesions are appreciated. Cardiovascular: Tachycardic rate and rhythm with a normal S1 and S2. No gallops, murmurs, or rubs. Normal PMI, no JVD. No pulse deficits. Respiratory: Lungs have equal breath sounds bilaterally, clear to auscultation and percussion. No rales, rhonchi or wheezes noted. No increased work of breathing, no retractions or nasal flaring. Abdomen/GI: Soft, non-tender, with normal bowel sounds. No distension or tympany. No guarding or rebound. No evidence of tenderness throughout. Back: No spinal tenderness. No costovertebral tenderness. Full range of motion. Skin: Warm, dry with normal turgor. Normal color with no rashes, no lesions, and no evidence of cellulitis. MS/ Extremity: Pulses equal, no cyanosis. Neurovascular intact. Full, normal range of motion. Neuro: Awake and alert, GCS 15, oriented to person, place, time, and situation. Cranial nerves II-XII grossly intact. Motor strength 5/5 in all extremities. Sensory grossly intact. Cerebellar exam normal. Normal gait. Psych: Awake, alert, with orientation to person, place and time. Behavior, mood, and affect are within normal limits. 12:34 Special observations: [place] body weight 121-153, will use 70kg. snw Vital Signs: 09:50 BP 153 / 62; Pulse 122; ll1 10:00 BP 125 / 55; Pulse 116; ll1 11:12 BP 164 / 62; Pulse 123; Resp 21; Temp 98.4; Pulse Ox 97% ; ll1 12:02 BP 108 / 62; Pulse 126; Resp 21; ll1 12:06 BP 150 / 77; Pulse 125; ll1 12:34 Weight 99.79 kg; Height 5 ft. 7 in. (170.18 cm) (R); snw 12:57 BP 144 / 69; Pulse 125; Temp 99.7; ll1 14:14 BP 128 / 68; Pulse 121; Resp 22; Pulse Ox 96% on R/A; ll1 15:08 BP 123 / 64; Pulse 115; ll1 16:17 BP 116 / 61; Pulse 114; Resp 20; Pulse Ox 97% ; ll1 17:15 BP 125 / 64; Pulse 115; Resp 20; ll1 18:13 BP 135 / 66; Pulse 111; Resp 20; Pulse Ox 96% on R/A; ll1 18:50 BP 134 / 66; Pulse 126; Resp 20; Temp 98.5; Pulse Ox 97% on R/A; ll1 12:34 Body Mass Index 34.46 (99.79 kg, 170.18 cm) snw MDM: 09:47 Patient medically screened. snw 12:22 Data reviewed: vital signs, nurses notes. Data interpreted: Pulse oximetry: on room air snw is 97 %. Interpretation: normal. Counseling: I had a detailed discussion with the patient and/or guardian regarding: the historical points, exam findings, and any diagnostic results supporting the discharge/admit diagnosis, the presence of at least one elevated blood pressure reading (>120/80) during this emergency department visit, lab results, radiology results, the need for further work-up and treatment in the hospital, pt requests transfer for insurance network. ED course: +source of infection (UA), tachycardia (120), WBC greater than 12 (20), organ dysfunction (lactate 2.4). 12:33 ED course: DX: impending thyroid storm, uti, sepsis. snw 14:10 ED course: second lactate drawn. snw 16:04 Post IV fluid administration reassessment for Sepsis: Client not prescribed the 30 snw mL/kg IVF due to: impending thyroid storm per Jonathan. Used 70kg Sepsis focused reassessment complete. Current vital signs reviewed: Yes. Cardio: Cardiovascular examination improved from previous exam. Heart rate and blood pressure have improved. tachycardia improved. Response to treatment: the patient's symptoms have mildly improved after treatment. 16:07 ED course: initiated transfer to [facility] for insurance network, declined. Attempted snw initiation of transfer to [facility]. 16:29 Transition of care: After a detail discussion of the patient's case, care is snw transferred to Himanshu Arcos MD. 18:31 ED course: Doc-to-doc performed just now, accepted to [facility] for transfer. rn Stable vitals. . 09/12 09:48 Order name: Basic Metabolic Panel snw 09/12 09:48 Order name: CBC with Diff snw 09/12 09:48 Order name: LFT's snw 09/12 09:48 Order name: Magnesium snw 09/12 09:48 Order name: NT PRO-BNP snw 09/12 09:48 Order name: PT-INR snw 09/12 09:48 Order name: Troponin HS snw 09/12 09:48 Order name: TSH snw 09/12 09:57 Order name: Urine Culture; Complete Time: 16:57 snw 09/12 09:57 Order name: Urine Microscopic Only snw 09/12 09:57 Order name: T4 Free snw 09/12 10:25 Order name: SARS RAPID snw 09/12 10:51 Order name: Urine Dipstick-Ancillary; Complete Time: 10:52 EDMS 09/12 10:55 Order name: CBC with Automated Diff; Complete Time: 10:56 EDMS 09/12 10:57 Order name: Blood Culture Adult (2) snw 09/12 10:57 Order name: Lactate snw 09/12 11:11 Order name: SARS-COV-2 Antigen Rapid; Complete Time: 11:24 EDMS 09/12 11:19 Order name: T4 Free; Complete Time: 11:24 EDMS 09/12 11:29 Order name: Basic Metabolic Panel; Complete Time: 11:38 EDMS 09/12 11:29 Order name: Liver (Hepatic) Function; Complete Time: 11:38 EDMS 09/12 11:29 Order name: Troponin High Sensitivity; Complete Time: 11:38 EDMS 09/12 11:29 Order name: NT PRO-BNP; Complete Time: 11:38 EDMS 09/12 11:29 Order name: Magnesium; Complete Time: 11:38 EDMS 09/12 11:29 Order name: Thyroid Stimulating Hormone; Complete Time: 11:38 EDMS 09/12 11:32 Order name: Urine Microscopic Only; Complete Time: 11:38 EDMS 09/12 11:38 Order name: Lactate; Complete Time: 11:38 EDMS 09/12 13:06 Order name: Protime (+INR); Complete Time: 13:08 EDMS 09/12 15:20 Order name: Glucose, Ancillary Testing; Complete Time: 15:20 EDMS 09/12 16:19 Order name: Lactate Sepsis 2 HR Follow-up; Complete Time: 16:26 EDMS 09/12 18:59 Order name: Glucose, Ancillary Testing; Complete Time: 16:57 EDMS 09/12 09:48 Order name: XRAY Chest (1 view) snw 09/12 09:48 Order name: EKG; Complete Time: 09:48 snw 09/12 09:48 Order name: Cardiac monitoring; Complete Time: 10:22 snw 09/12 09:48 Order name: EKG - Nurse/Tech; Complete Time: 10:22 snw 09/12 09:48 Order name: IV Saline Lock; Complete Time: 10:22 snw 09/12 09:48 Order name: Labs collected and sent; Complete Time: 10:22 snw 09/12 09:48 Order name: O2 Per Protocol; Complete Time: 10:22 snw 09/12 09:48 Order name: O2 Sat Monitoring; Complete Time: 10:22 snw 09/12 09:57 Order name: Urine Dipstick-Ancillary (obtain specimen); Complete Time: 12:21 snw 09/12 09:57 Order name: FSBS; Complete Time: 13:05 snw 09/12 10:32 Order name: RAD; Complete Time: 10:34 EDMS 09/12 15:01 Order name: FSBS; Complete Time: 15:08 snw EC:00 Rate is 120 beats/min. Rhythm is regular. QRS [place] is Normal. [place] interval is normal. snw QRS interval is normal. Q waves are Present in leads I, aVL. Clinical impression: Sinus tachycardia. Administered Medications: 11:58 Drug: NS 0.9% 500 ml Volume: 500 ml; Route: IV; Rate: 1 bolus; Site: left antecubital; ll1 13:05 Follow up: Response: No adverse reaction; IV Status: Completed infusion; IV Intake: ll1 500ml 11:58 Drug: Magnesium Sulfate 1 grams Route: IVPB; Infused Over: 1 hrs; Site: left ll1 antecubital; 14:13 Follow up: Response: No adverse reaction; IV Status: Completed infusion; IV Intake: ll1 100ml 11:59 Drug: Rocephin (cefTRIAXone) 1 grams Route: IV; Rate: calculated rate; Site: left ll1 antecubital; 13:05 Follow up: Response: No adverse reaction; IV Status: Completed infusion; IV Intake: [id number] 12:56 Drug: Tylenol 1000 mg Route: PO; ll1 14:14 Follow up: Response: No adverse reaction [facility] 13:04 Drug: NS 0.9% 2000 ml Route: IV; Rate: 1000 ml; Site: right antecubital; ll1 14:14 Follow up: Response: No adverse reaction; IV Status: Completed infusion; IV Intake: ll1 2000ml 14:02 Drug: fentaNYL (PF) 25 mcg {Note: rass 0, pain 6/10 CAMP.} Route: IVP; Site: right ll1 antecubital; 17:44 Follow up: Response: No adverse reaction; Pain is decreased; RASS: Alert and Calm (0) ll1 17:43 Drug: fentaNYL (PF) 25 mcg {Note: rass 0, pain 6/10.} Route: IVP; Site: right ll1 antecubital; 22:04 Drug: fentaNYL (PF) 50 mcg Route: IVP; Site: left antecubital; lg3 22:04 Follow up: Response: No adverse reaction; Marked relief of symptoms; Pain is decreased lg3 Disposition: 18:29 Co-signature as Attending Physician, Himansuh Arcos MD I agree with the assessment and rn plan of care. PA/COMMUNITY RELATIONS COORDINATOR's history reviewed, patient interviewed, and examined. HPI: 46 year old female with palpitations/chest pain and not feeling well for a couple of days. My personal exam of patient reveals: Tachycardic, regular I agree with assessment and care plan and confirm the diagnosis (es) above. Disposition Summary: 09/12/22 16:29 Transfer Ordered Transfer Location: Other Acute Care Facility snw Reason: Patient request snw Condition: Fair snw Problem: new snw Symptoms: have improved snw Accepting Physician: (09/12/22 22:05) lg3 Diagnosis - UTI/ Urinary tract infection, site not specified snw - Sepsis, unspecified organism snw - Impending thyroid storm snw Forms: - Medication Reconciliation Form snw - SBAR form snw Signatures: Dispatcher [employer] EDMS Liz Hirsch, GIZZARD PULLER-C GIZZARD PULLER-Csnw Aura Rivera, RN RN iw Himanshu Arcos MD MD rn Gibson, Lacie, RN RN lg3 Nigel Ocampo RN RN [facility] Mariann Baca tw5 Corrections: (The following items were deleted from the chart) 21:52 16:29 Dr jaramillo tw5 22:05 21:52 twJaret lg3
[2022-09-12 22:25] VITALS: BP 134/66; TEMP 98.5; O2SAT 97
--- NOTE | 2022-09-13 11:43 | EKG ---
Test Date: 2022-09-12 Test Time: 09:55:15 Import/Export Agent: FAUSTO MEASUREMENT RESULTS: Intervals: Rate: 120 NH: 134 QRSD: 84 QT: 336 QTc: 474 [place]: P: 57 NH: 134 QRS: -1 T: 51 INTERPRETIVE STATEMENTS: Sinus tachycardia Septal infarct, age undetermined Abnormal ECG Compared to ECG 05/14/2015 16:27:47 Myocardial infarct finding now present Sinus rhythm no longer present Left ventricular hypertrophy no longer present Prolonged QT interval no longer present Electronically Signed On 09-13-22 11:39:09 CDT by Prosper Ruiz
== END 2022-09-12 22:05 ==
LOC: ER 09:44
DX: A41.9 Sepsis, unspecified organism (principal); N39.0 Urinary tract infection, site not specified; E05.81 Other thyrotoxicosis with thyrotoxic crisis or storm; E11.9 Type 2 diabetes mellitus without complications; I10 Essential (primary) hypertension; M19.90 Unspecified osteoarthritis, unspecified site; Z88.8 Allergy status to other drugs, medicaments and biological substances; Z20.822 Contact with and (suspected) exposure to COVID-19
CPT/HCPCS: 93005; 87040 ×2; 87088; 85025; 87086; 80048; 36415; 83735; 85610; 82947 ×2; 80076; 83605 ×2; 84443; 87077; 87186; 84484; 84439; 83880; 71045; 99285; 87811; J3010 ×2; J3475; J7040; J7030; 81003; 81015

== ENCOUNTER 2024-02-06 06:47 | Day surgery (SDC) | payer OTHER ==
[2024-02-02 16:15] LABS: Absolute Basophils 0.1 K/uL (0-0.5); Absolute Lymphocytes (CBC) 2.2 K/uL (0.7-4.9); Hematocrit 39.7 % (36.0-45.0); Lymphocytes % 23.8 % (15.3-44.8); MPV 7.1 fL (7.6-11.3); Platelets 407 thou/uL (152-406); RBC Red Blood Cell Count 4.51 M/uL (3.86-4.86)
[2024-02-02 16:23] LABS: Protime INR 1.09
[2024-02-02 16:34] LABS: Anion Gap 9.1 mEq/L (5.0-15.0); Potassium 4.1 mEq/L (3.5-5.1)
--- NOTE | 2024-02-02 23:22 | RAD REPORT ---
EXAM DESCRIPTION: RAD - Chest Pa And Lat (2 Views) - 02/02/2024 4:09 pm CLINICAL HISTORY: pre op for surgery. Hypertension COMPARISON: Chest Single View dated 09/12/2022; CHEST SINGLE VIEW dated 05/14/2015; CHEST PA AND LAT 2 VIEW dated 11/26/2012 TECHNIQUE: PA and lateral views of the chest were obtained. FINDINGS: The lungs are clear. Heart size is normal and central vasculature is within normal limits. No pleural effusion or pneumothorax seen. No acute bony finding noted. IMPRESSION: No acute cardiopulmonary process.
--- NOTE | 2024-02-03 17:07 | EKG ---
Test Date: 2024-02-02 Test Time: 17:00:14 Technical Inspector: PREM MEASUREMENT RESULTS: Intervals: Rate: 79 NV: 148 QRSD: 88 QT: 412 QTc: 472 [place]: P: 59 NV: 148 QRS: 13 T: 47 INTERPRETIVE STATEMENTS: Normal sinus rhythm Normal ECG Compared to ECG 09/12/2022 09:55:15 Sinus tachycardia no longer present Myocardial infarct finding no longer present Electronically Signed On 02-03-24 17:03:27 [employer]UL[employer]IZER CHARGER by Igor Purcell
[2024-02-06] MEDS ORDERED: LIDOCAINE 1% MPF 30 ML VIAL ONE (07:16)
[2024-02-06] MEDS ORDERED: ONDANSETRON 4 MG/2 ML VIAL ONE ×2 (07:16→10:27)
[2024-02-06] MEDS ORDERED: dexAMETHasone 10 MG/ML VIAL ONE ×2 (07:16→10:27)
[2024-02-06] MEDS ORDERED: LIDOCAINE 2% MPF 5 ML VIAL ONE ×2 (07:16→10:27)
[2024-02-06] MEDS ORDERED: NS 0.9% VIAL 30 ML ONE (07:16)
[2024-02-06] MEDS ORDERED: propofoL 200 MG/20 ML VIAL IV ONE ×2 (07:17→10:27)
[2024-02-06] MEDS ORDERED: FENTANYL CITR 100 MCG/2 ML ONE (07:17)
[2024-02-06] MEDS ORDERED: MIDAZOLAM HCL 2 MG/2 ML INJ ONE (07:17)
[2024-02-06] MEDS: CEFAZOLIN SODIUM 2 GM/VIAL ONE (07:59)
[2024-02-06] MEDS: NA CHLORIDE 0.9% 1,000 ML ONE (07:59)
[2024-02-06] MEDS: BUPIVACAINE 0.25% PF 30 ML VIAL ONE (08:26)
--- NOTE | 2024-02-06 09:04 | P.BOP ---
Preoperative diagnosis: left index finger trigger digit Postoperative diagnosis: same Primary procedure: left index finger A1 khurram release Service Liaison Representative: NONE,NONE Estimated blood loss: 1 cc Specimen: none Findings: see dictation Anesthesia: [place] block Complications: None Implants: none Fluids & blood products: per anesthesia record Transferred to: Recovery Room Condition: Good
[2024-02-06 10:05] VITALS: BP 88/40; TEMP 97.6; O2SAT 97
[2024-02-06] MEDS ORDERED: KETOROLAC 30 MG/ML INJ ONE (10:27)
== END 2024-02-06 09:30 | disposition home or self-care (01) ==
LOC: OR 06:47
PROVIDERS: ATTEND Orthopaedic Surgery Sports Medicine
PROC: 0LN80ZZ Release Left Hand Tendon, Open Approach (ICD-10-PCS; principal; 2024-02-06 08:00)
DX: M65.322 Trigger finger, left index finger (principal)
CPT/HCPCS: 93005; 85025; 80048; 36415; 85610; 82947; 85730; 71046; 26055; A4216; J2704 ×2; J2001 ×3; J2250; J3010; J1100 ×2; J2405 ×2; J7030